=== PATIENT | male | born 1950 | race Caucasian/White ===

== ENCOUNTER 2016-12-06 11:09 | Outpatient (CLI) | payer MEDICARE, OTHER | END 2016-12-06 11:10 | disposition home or self-care (01) | DX: I48.91 Unspecified atrial fibrillation (principal); I34.0 Nonrheumatic mitral (valve) insufficiency; I51.7 Cardiomegaly; I07.1 Rheumatic tricuspid insufficiency ==

== ENCOUNTER 2016-12-10 12:40 | Outpatient (CLI) | payer MEDICARE, OTHER | END 2016-12-10 12:41 | disposition home or self-care (01) | DX: N62 Hypertrophy of breast (principal) ==

== ENCOUNTER 2016-12-25 13:01 | Outpatient (CLI) | payer MEDICARE, OTHER ==
--- NOTE | 2016-12-25 16:12 | Ultrasound Report ---
REVISED: THIS REPORT WAS ORIGINALLY SIGNED ON 12/26/2016 @ 0804 ORDERS LINKED ON 12/31/2016 BILATERAL LOWER EXTREMITY ARTERIAL DUPLEX WITH ABIs: 12/25/2016 CLINICAL INDICATION: Claudication. TECHNIQUE: Real-time sonographic vascular imaging was performed by the trouble tracer through the lower extremities utilizing both color-flow and Doppler spectral analysis. Multiple advertising representative static images were saved for review. RIGHT SIDE SITE PSV WAVEFORM STEN MIGEL -- -- -- MAO -- -- -- CHERI -- -- -- NIGEL -- -- -- EIA -- -- -- MUSSEL FARMER 186 Tri -- PSFA 15 [place] -- MSFA Trickle [place] -- -- DSFA 104 [place] -- PFA 55 Tri -- POP Trickle [place] -- -- ROMINA 10 [place] -- JUTE BAG CUTTING MACHINE OPERATOR 14 [place] -- PER 17 [place] -- DPA 36 [place] -- LEFT SIDE SITE PSV WAVEFORM STEN NIGEL -- -- -- EIA -- -- -- MUSSEL FARMER 292 [place] -- PSFA 80 Bi -- MSFA 75 Bi 00 DSFA [place] Trickle -- -- PFA 15 [place] -- POP 33 [place] -- ROMINA Trickle -- -- JUTE BAG CUTTING MACHINE OPERATOR 23 [place] -- PER Not seen -- -- DPA 25 [place] -- TECHNIQUE: Real-time scanning was performed. SYSTOLIC PRESSURES RIGHT LEFT BRACHIAL ARTERY 128/95 144/93 POSTERIOR TIBIAL ARTERY 101/63 128/48 ANTERIOR TIBIAL ARTERY -- -- PERONEAL ARTERY -- -- ANKLE/ARM INDEX .78 .88 FINDINGS: RIGHT LEG: There is triphasic flow in the right common femoral artery. There is a high grade stenosis of the proximal superficial femoral artery, with likely segmental occlusions in the mid and distal portions. Monophasic flow is seen to the level of the ankle. LEFT LEG: Waveforms are predominantly monophasic, with a likely hemodynamically significant stenosis in the left common femoral artery. The peroneal artery was not visualized. ABIs are abnormal, with the right measuring 0.78 and the left measuring 0.88. IMPRESSION: RIGHT SUPERFICIAL FEMORAL STENOSIS, WITH LIKELY TANDEM OCCLUSIONS DISTALLY. LEFT COMMON FEMORAL STENOSIS. MTDD
== END 2016-12-25 13:02 | disposition home or self-care (01) ==
LOC: DI 13:01
PROVIDERS: ATTEND Internal Medicine
DX: I70.203 Unspecified atherosclerosis of native arteries of extremities, bilateral legs (principal)
CPT/HCPCS: 93922; 93925

== ENCOUNTER 2017-01-21 09:00 | Outpatient (CLI) | payer MEDICARE, OTHER | END 2017-01-21 09:01 | disposition home or self-care (01) | LOC: LAB 09:00 | PROVIDERS: ATTEND Internal Medicine Interventional Cardiology | DX: I73.9 Peripheral vascular disease, unspecified (principal) | CPT/HCPCS: 85610 ==

== ENCOUNTER 2017-01-28 08:56 | Outpatient (CLI) | payer MEDICARE, OTHER | END 2017-01-28 08:57 | disposition home or self-care (01) | LOC: LAB 08:56 | PROVIDERS: ATTEND Internal Medicine Interventional Cardiology | DX: Z79.01 Long term (current) use of anticoagulants (principal) | CPT/HCPCS: 85610 ==

== ENCOUNTER 2017-02-04 08:54 | Outpatient (CLI) | payer MEDICARE, OTHER | END 2017-02-04 08:55 | disposition home or self-care (01) | LOC: LAB 08:54 | PROVIDERS: ATTEND Internal Medicine Interventional Cardiology | DX: Z79.01 Long term (current) use of anticoagulants (principal) | CPT/HCPCS: 85610 ==

== ENCOUNTER 2017-02-19 08:59 | Outpatient (CLI) | payer MEDICARE, OTHER | END 2017-02-19 09:00 | disposition home or self-care (01) | LOC: LAB 08:59 | PROVIDERS: ATTEND Internal Medicine Interventional Cardiology | DX: Z79.01 Long term (current) use of anticoagulants (principal) | CPT/HCPCS: 85610 ==

== ENCOUNTER 2017-02-26 08:55 | Outpatient (CLI) | payer MEDICARE, OTHER | END 2017-02-26 08:56 | disposition home or self-care (01) | LOC: LAB 08:55 | PROVIDERS: ATTEND Internal Medicine Interventional Cardiology | DX: Z79.01 Long term (current) use of anticoagulants (principal) | CPT/HCPCS: 85610 ==

== ENCOUNTER 2017-03-05 08:56 | Outpatient (CLI) | payer MEDICARE, OTHER | END 2017-03-05 08:57 | disposition home or self-care (01) | LOC: LAB 08:56 | PROVIDERS: ATTEND Internal Medicine Interventional Cardiology | DX: Z79.01 Long term (current) use of anticoagulants (principal) | CPT/HCPCS: 85610 ==

== ENCOUNTER 2017-03-19 08:53 | Outpatient (CLI) | payer MEDICARE, OTHER | END 2017-03-19 08:54 | disposition home or self-care (01) | LOC: LAB 08:53 | PROVIDERS: ATTEND Internal Medicine Interventional Cardiology | DX: Z79.01 Long term (current) use of anticoagulants (principal) | CPT/HCPCS: 85610 ==

== ENCOUNTER 2017-03-26 09:05 | Outpatient (CLI) | payer MEDICARE, OTHER | END 2017-03-26 09:06 | disposition home or self-care (01) | LOC: LAB 09:05 | PROVIDERS: ATTEND Internal Medicine Interventional Cardiology | DX: Z79.01 Long term (current) use of anticoagulants (principal) | CPT/HCPCS: 85610 ==

== ENCOUNTER 2017-04-02 08:36 | Outpatient (CLI) | payer MEDICARE, OTHER | END 2017-04-02 08:37 | disposition home or self-care (01) | LOC: LAB 08:36 | PROVIDERS: ATTEND Internal Medicine Interventional Cardiology | DX: Z79.01 Long term (current) use of anticoagulants (principal) | CPT/HCPCS: 85610 ==

== ENCOUNTER 2017-04-09 09:09 | Outpatient (CLI) | payer MEDICARE, OTHER | END 2017-04-09 09:10 | disposition home or self-care (01) | LOC: LAB 09:09 | PROVIDERS: ATTEND Internal Medicine Interventional Cardiology | DX: Z79.01 Long term (current) use of anticoagulants (principal) | CPT/HCPCS: 85610 ==

== ENCOUNTER 2017-04-23 08:57 | Outpatient (CLI) | payer MEDICARE, OTHER | END 2017-04-23 08:58 | disposition home or self-care (01) | LOC: LAB 08:57 | PROVIDERS: ATTEND Internal Medicine Interventional Cardiology | DX: Z79.01 Long term (current) use of anticoagulants (principal) | CPT/HCPCS: 85610 ==

== ENCOUNTER 2017-09-11 08:52 | Outpatient (CLI) | payer MEDICARE, OTHER ==
[2017-09-11 09:58] LABS: CALCIUM 9.3 mg/dL (8.5-10.3); CREATININE 0.6 mg/dL (0.6-1.2)
== END 2017-09-11 08:53 | disposition home or self-care (01) ==
LOC: LAB 08:52
PROVIDERS: ATTEND Internal Medicine Interventional Cardiology
DX: I10 Essential (primary) hypertension (principal)
CPT/HCPCS: 36415; 80048

== ENCOUNTER 2018-02-05 07:15 | Outpatient (CLI) | payer MEDICARE, OTHER ==
[2018-02-05 07:57] LABS: BASOPHILS # (AUTO) 0.1 10^3/uL (0.0-0.1); BASOPHILS % (AUTO) 1.1 %; EOSINOPHILS # (AUTO) 0.3 10^3/uL (0.0-0.7); EOSINOPHILS % (AUTO) 5.1 %; HGB - HEMOGLOBIN 15.1 g/dL (14.0-18.0); LYMPHOCYTES # (AUTO) 1.4 10^3/uL (1.5-3.5); LYMPHOCYTES % (AUTO) 22.8 %; MEAN CORPUSCULAR HGB CONC 33.4 g/dL (32.0-36.0); MEAN CORPUSCULAR VOLUME 95.7 fL (80.0-94.0); MEAN PLATELET VOLUME 9.2 fL (7.4-11.4); MONOCYTES # (AUTO) 0.9 10^3/uL (0.0-1.0); MONOCYTES % (AUTO) 13.6 %; NEUTROPHILS # (AUTO) 3.6 10^3/uL (1.5-6.6); NEUTROPHILS % (AUTO) 57.4 %; PLT - PLATELET COUNT 161 10^3/uL (130-450); RED BLOOD COUNT 4.72 10^6/uL (4.70-6.10); WHITE BLOOD COUNT 6.3 x10^3/uL (4.8-10.8)
[2018-02-05 08:10] LABS: ALBUMIN 4.2 g/dL (3.2-5.5); ALBUMIN/GLOBULIN RATIO 1.2 (1.0-2.2); ALKALINE PHOSPHATASE 52 IU/L (42-121); ALT ALANINE AMINOTRANSFERASE 21 IU/L (10-60); AST ASPARTATE AMINOTRANSFERASE 23 IU/L (10-42); BILIRUBIN,TOTAL 0.7 mg/dL (0.2-1.0); BUN - BLOOD UREA NITROGEN 12 mg/dL (6-20); CARBON DIOXIDE - CO2 30 mmol/L (21-32); CHLORIDE 93 mmol/L (101-111); CHOL/HDL RATIO 2.9 (<5.0); CHOLESTEROL 128 mg/dL; CK- CREATINE KINASE 64 IU/L (22-269); CREATININE 0.7 mg/dL (0.6-1.2); GFR - MDRD 112 (>89); GLUCOSE 107 mg/dL (70-100); HB2 TOTAL 16.5 g/dL; HDL CHOLESTEROL 44 mg/dL; HEMOGLOBIN A1C 0.57 g/dL; HEMOGLOBIN A1C % 5.3 % (4.6-6.2); LDL CHOLESTEROL,CALCULATED 67 mg/dL; LDL/HDL RATIO 1.5 (<3.6); SODIUM 132 mmol/L (135-145); TOTAL PROTEIN 7.6 g/dL (6.7-8.2); VLDL CHOLESTEROL 17 mg/dL
[2018-02-05 08:52] LABS: THYROID STIMULATING HORMONE 4.27 uIU/mL (0.34-5.60)
[2018-02-05 08:54] LABS: FREE T4 (FREE THYROXINE) 0.74 ng/dL (0.58-1.64)
[2018-02-05 09:13] LABS: BILIRUBIN,URINE NEGATIVE (NEGATIVE); GLUCOSE, URINE (UA) NEGATIVE (NEGATIVE); KETONES,URINE (UA) NEGATIVE (NEGATIVE); LEUKOCYTE ESTERASE, URINE NEGATIVE (NEGATIVE); NITRITE,URINE NEGATIVE (NEGATIVE); OCCULT BLOOD,URINE NEGATIVE (NEGATIVE); PH,URINE 6.5 PH (5.0-7.5); PROTEIN,URINE NEGATIVE (NEGATIVE); UROBILINOGEN,URINE 0.2 (NORMAL) E.U./dL (NORMAL)
[2018-02-05 09:15] LABS: CLARITY,URINE CLEAR (CLEAR)
== END 2018-02-05 07:16 | disposition home or self-care (01) ==
LOC: LAB 07:15
PROVIDERS: ATTEND Internal Medicine
DX: Z12.5 Encounter for screening for malignant neoplasm of prostate (principal); Z79.899 Other long term (current) drug therapy; Z13.6 Encounter for screening for cardiovascular disorders; I10 Essential (primary) hypertension; I48.91 Unspecified atrial fibrillation; I77.9 Disorder of arteries and arterioles, unspecified; E78.5 Hyperlipidemia, unspecified; R73.01 Impaired fasting glucose; E02 Subclinical iodine-deficiency hypothyroidism; E53.8 Deficiency of other specified B group vitamins
CPT/HCPCS: 36415; 80053; 80061; 81003; 82550; 82607; 83036; 84439; 84443; 85025; G0103; 81001; 83721; 84153; 87086

== ENCOUNTER 2019-05-19 06:40 | Day surgery (SDC) | payer MEDICARE, OTHER ==
[2019-05-19] MEDS ORDERED: LACTATED RINGERS 1,000 ML IV ONE (06:47)
[2019-05-19] MEDS ORDERED: LIDO GARGLE 30 ML BOTTLE TOP ONE (09:23)
[2019-05-19] MEDS ORDERED: BENZOCAINE/TETRACAINE/BUTAMBEN 20 GM TOP ONE (09:24)
[2019-05-19] MEDS ORDERED: LIDO GARGLE 30 ML BOTTLE ONE (09:27)
[2019-05-19 10:16] VITALS: BP 110/63
== END 2019-05-19 06:41 | disposition home or self-care (01) ==
LOC: SDS 06:40
PROVIDERS: ATTEND Surgery
PROC: 0DB78ZX Excision of Stomach, Pylorus, Via Natural or Artificial Opening Endoscopic, Diagnostic (ICD-10-PCS; 2019-05-19)
PROC: 0DB38ZX Excision of Lower Esophagus, Via Natural or Artificial Opening Endoscopic, Diagnostic (ICD-10-PCS; 2019-05-19)
PROC: 0DB98ZX Excision of Duodenum, Via Natural or Artificial Opening Endoscopic, Diagnostic (ICD-10-PCS; principal; 2019-05-19 08:15)
DX: K22.70 Barrett's esophagus without dysplasia (principal); K26.9 Duodenal ulcer, unspecified as acute or chronic, without hemorrhage or perforation; K25.9 Gastric ulcer, unspecified as acute or chronic, without hemorrhage or perforation; K44.9 Diaphragmatic hernia without obstruction or gangrene; D50.9 Iron deficiency anemia, unspecified; I49.9 Cardiac arrhythmia, unspecified; I10 Essential (primary) hypertension; E78.00 Pure hypercholesterolemia, unspecified; G47.30 Sleep apnea, unspecified; Z87.891 Personal history of nicotine dependence
CPT/HCPCS: 43239; A9270; J7120

== ENCOUNTER 2019-06-17 17:15 | Emergency (ER) | payer MEDICARE, OTHER ==
--- NOTE | 2019-06-17 17:54 | ED Physician Documentation ---
History of Present Illness - Stated complaint Stated Complaint: R LEG PAIN - Chief complaint Chief Complaint: Ext Problem - Additonal information Additional information: This is a 6-year-old male with a history of peripheral arterial disease who presents with leg wounds on the right leg. Patient had these chronically, they started as blisters from edema, and they have continued with slow healing after the edema resolved because of his poor circulation. They have been ongoing for months, however he noticed that they became foul-smelling in the last 3 days. He is not currently on antibiotics. There is some redness around the wounds Review of Systems Constitutional: denies: Fever Skin: reports: Lesions PD PAST MEDICAL HISTORY - Past Medical History Cardiovascular: Hypertension, Atrial fibrillation, Other Respiratory: Sleep apnea, CPAP use Endocrine/Autoimmune: None GI: Colon polyps : None HEENT: None Psych: None Musculoskeletal: None Derm: None - Past Surgical History General: Appendectomy Ortho: Knee replacement, Arthroscopic surgery Cardiovascular: Other HEENT: Tonsil/Adenoidectomy - Present Medications Home Medications: Ambulatory Orders Medication Instructions Recorded Confirmed Chlorthalidone 50 mg PO DAILY 05/18/19 05/18/19 Dabigatran Etexilate Mesylate 150 mg PO BID 05/18/19 05/18/19 [Pradaxa] Lisinopril 20 mg PO DAILY 05/18/19 05/18/19 Simvastatin 40 mg PO DAILY PM 05/18/19 05/18/19 Omeprazole 20 mg PO BID #60 capsule. 05/19/19 Clindamycin HCl [Clindamycin 300MG 300 mg PO Q6H #40 capsule 06/17/19 CAP] Ferrous Gluconate [Iron] 65 mg PO TID 06/17/19 06/17/19 Metoprolol Succinate [Toprol Xl] 100 mg PO BID 06/17/19 06/17/19 - Allergies Allergies/Adverse Reactions: Allergies Allergy/AdvReac Type Severity Reaction Status Date / Time No Known Drug Allergies Allergy Verified 06/17/19 17:41 PD ED PE NORMAL - Vitals Vital signs reviewed: Yes - General General: Alert and oriented X 3 - HEENT HEENT: Atraumatic - Neck Neck: Supple, no meningeal sign - Cardiac Cardiac: Other (Regular rhythm, rate 60 on my exam) - Abdomen Abdomen: Non distended - Derm Derm: Other (Over the right lower leg there are two 2cm diameter wounds with dark crusting over them and surrounding erythema extending several centimeters. These are on the anterior leg. Palpable PT pulse and warm distal extremity. There is no active drainage or fluctuance but the wounds are somewhat foul- smelling. Motor function intact.) - Neuro Neuro: Alert and oriented X 3 Results - Vitals Vitals: Oxygen O2 Source Room air - Labs Labs: Laboratory Tests 06/17/19 06/17/19 06/17/19 18:59 19:39 19:39 WBC 6.4 RBC 4.15 L Hgb 12.7 L Hct 38.7 L MCV 93.3 MCH 30.6 MCHC 32.8 RDW 14.6 Plt Count 169 MPV 11.0 Neut # (Auto) 3.7 Lymph # (Auto) 1.4 L Tripp # (Auto) 0.8 Eos # (Auto) 0.4 Baso # (Auto) 0.1 Absolute Nucleated RBC 0.00 Nucleated RBC % 0.0 PT 15.0 H INR 1.3 H Sodium 139 Potassium 4.0 Chloride 102 Carbon Dioxide 30 Anion Gap 7.0 BUN 29 H Creatinine 0.8 Estimated GFR (MDRD) 96 Glucose 102 H Calcium 8.9 Total Bilirubin 0.5 AST 13 ALT 15 Alkaline Phosphatase 47 Total Protein 6.8 Albumin 4.0 Globulin 2.8 Albumin/Globulin Ratio 1.4 Lipase 43 - Rads (name of study) XR RLE Radiology: Other (No bony abnormalities or unexpected soft tissue findings) PD MEDICAL DECISION MAKING - ED course Complexity details: considered differential (Cellulitis, infected chronic wounds, osteomyelitis) ED course: Pt is well-appearing on exam, his chronic leg wounds do have signs of cellulitis and are somewhat foul-smelling, without drainage or fluctuance, no signs of abscess. XR shows no soft tissue gas or osteomyelitis. Labs show a normal WBC, and he has no fever or signs of systemic toxicity. He appears stable for a trial of outpatient therapy, and was prescribed a course of clindamycin with instructions on close follow up and return precautions with any worsening Departure - Departure Disposition: 01 Home, Self Care Clinical Impression: Skin infection Condition: Stable Instructions: Cellulitis Dc Follow-Up: Renay Chandler MD [Primary Care Provider] - Within 3 Days Prescriptions: Clindamycin HCl [Clindamycin 300MG CAP] 300 mg PO Q6H #40 capsule Comments: You were seen today for some worsening wounds on your lower leg, at this time your labs appear reassuring and I do not see signs of systemic infection or infection extending into the bone. Please take the antibiotic as prescribed, if you are having worsening redness, not improving swelling, fever, or any other concerning symptoms return to the emergency department. You should have a wound recheck within 48 hours to ensure improvement, you can do this with your primary care provider or here. Discharge Date/Time: 06/17/19 21:02
--- NOTE | 2019-06-17 18:57 | XRAY Report ---
Reason: leg infection, assess for osteo Procedure Date: 06/17/2019 Accession Number: [id number] / [id number] Procedure: XR - Tib/Fib RT CPT Code: Final Report FULL RESULT: EXAM: RIGHT TIBIA/FIBULA RADIOGRAPHY EXAM DATE: 06/17/2019 06:34 PM. CLINICAL HISTORY: Leg infection, assess for osteo. COMPARISON: None. TECHNIQUE: 2 views. FINDINGS: Bones: No fracture or focal bony lesion. Joints: No evidence of dislocation. Patient is undergoing knee arthroplasty. Soft Tissues: No unexpected soft tissue findings. IMPRESSION: No evidence of fracture or focal bony lesion. RADIA
[2019-06-17 19:14] LABS: BASOPHILS # (AUTO) 0.1 10^3/uL (0.0-0.1); BASOPHILS % (AUTO) 0.9 %; EOSINOPHILS # (AUTO) 0.4 10^3/uL (0.0-0.7); EOSINOPHILS % (AUTO) 6.1 %; HGB - HEMOGLOBIN 12.7 g/dL (14.0-18.0); LYMPHOCYTES # (AUTO) 1.4 10^3/uL (1.5-3.5); LYMPHOCYTES % (AUTO) 22.4 %; MEAN CORPUSCULAR HEMOGLOBIN 30.6 pg (27.0-31.0); MEAN CORPUSCULAR HGB CONC 32.8 g/dL (32.0-36.0); MEAN CORPUSCULAR VOLUME 93.3 fL (80.0-94.0); MONOCYTES # (AUTO) 0.8 10^3/uL (0.0-1.0); MONOCYTES % (AUTO) 12.1 %; NEUTROPHILS # (AUTO) 3.7 10^3/uL (1.5-6.6); PLT - PLATELET COUNT 169 10^3/uL (130-450); RED BLOOD COUNT 4.15 10^6/uL (4.70-6.10); RED CELL DISTRIBUTION WIDTH 14.6 % (12.0-15.0); WHITE BLOOD COUNT 6.4 x10^3/uL (4.8-10.8)
[2019-06-17 19:52] LABS: INR 1.3 (0.8-1.2)
[2019-06-17 20:01] LABS: ALBUMIN/GLOBULIN RATIO 1.4 (1.0-2.2); BILIRUBIN,TOTAL 0.5 mg/dL (0.2-1.0); CALCIUM 8.9 mg/dL (8.5-10.3); CREATININE 0.8 mg/dL (0.6-1.2); TOTAL PROTEIN 6.8 g/dL (6.7-8.2)
[2019-06-17] MEDS ORDERED: CLINDAMYCIN 150 MG CAPSULE PO STA (20:27)
[2019-06-17 20:52] VITALS: BP 133/79
== END 2019-06-17 21:02 | disposition home or self-care (01) ==
LOC: ED 17:15
DX: S81.801A Unspecified open wound, right lower leg, initial encounter (principal); L08.9 Local infection of the skin and subcutaneous tissue, unspecified; X58.XXXA Exposure to other specified factors, initial encounter; L03.115 Cellulitis of right lower limb; I10 Essential (primary) hypertension; I73.9 Peripheral vascular disease, unspecified; Z96.659 Presence of unspecified artificial knee joint
CPT/HCPCS: 73590; 80053; 83690; 85025; 85610; 99283; 99284; A9270; 86140

== ENCOUNTER 2019-10-27 10:25 | Outpatient (CLI) | payer MEDICARE ==
--- NOTE | 2019-10-27 20:18 | XRAY Report ---
Reason: HIP PAIN,RIGHT Procedure Date: 10/27/2019 Accession Number: [id number] / [id number] Procedure: XR - Hip w/Pelvis 2-3V RT CPT Code: Final Report FULL RESULT: EXAM: RIGHT HIP RADIOGRAPHY EXAM DATE: 10/27/2019 10:36 AM. CLINICAL HISTORY: Right hip pain. COMPARISON: None. TECHNIQUE: 2 views. FINDINGS: Bones: Normal. No fractures or bone lesion. Joints: There is moderate right hip joint space narrowing with subarticular sclerosis and osteophyte formation consistent with moderate osteoarthritis. There is mild left hip joint space narrowing with subarticular sclerosis consistent with mild osteoarthritis. There is severe degenerative change of the lower lumbar spine affecting the endplates and facet joints. There is mild bilateral sacroiliac joint osteoarthritis with joint space narrowing and subarticular sclerosis. Soft Tissues: There is coarse vascular calcification. IMPRESSION: 1. Moderate right and mild left hip osteoarthritis. 2. Mild bilateral sacroiliac joint osteoarthritis. 3. Moderate degenerative change of the lower lumbar spine. RADIA
== END 2019-10-27 10:26 | disposition home or self-care (01) ==
LOC: DI 10:25
PROVIDERS: ATTEND Internal Medicine
DX: M16.0 Bilateral primary osteoarthritis of hip (principal); M47.898 Other spondylosis, sacral and sacrococcygeal region; M47.896 Other spondylosis, lumbar region

== ENCOUNTER 2020-06-21 08:25 | Outpatient (CLI) | payer MEDICARE | END 2020-06-21 08:26 | disposition home or self-care (01) | LOC: COV 08:25 | PROVIDERS: ATTEND Family Medicine | DX: R50.9 Fever, unspecified (principal); R05 Cough; R06.02 Shortness of breath; R53.83 Other fatigue; Z20.828 Contact with and (suspected) exposure to other viral communicable diseases ==

== ENCOUNTER 2020-06-28 10:06 | Outpatient (CLI) | payer MEDICARE ==
--- NOTE | 2020-06-28 11:46 | Ultrasound Report ---
PROCEDURE: Duplex Ext Veins Right INDICATIONS: EDEMA RT LEG TECHNIQUE: Real-time imaging, as well as color and pulse Doppler interrogation, were performed of the lower extr emity deep veins from the inguinal ligament to the popliteal fossa. COMPARISON: None. FINDINGS: The deep veins are normally compressible, and free of intraluminal thrombus. Color and pu lse Doppler demonstrate normal phasic intraluminal flow. There is normal augmentation response to di stal compression maneuver. Severe soft tissue edema noted in the right leg. There is a 6.8 x 4.4 x 2.1 cm right groin frank mass . IMPRESSION: 1. No evidence of deep vein thrombosis involving the right lower extremity. 2. Severe, extensive right lower extremity nonspecific soft tissue edema. 3. 6.8 x 4.4 x 2.1 cm right groin frank mass. Neoplastic process cannot be excluded. Reviewed by: Candelaria Berkowitz MD, PhD on 06/28/2020 11:45 AM PST Approved by: Candelaria Berkowitz MD, PhD on 06/28/2020 11:45 AM PST Station ID: [id number]
== END 2020-06-28 10:07 | disposition home or self-care (01) ==
LOC: DI 10:06
PROVIDERS: ATTEND Internal Medicine
DX: R60.0 Localized edema (principal)

== ENCOUNTER 2020-07-11 08:24 | Outpatient (CLI) | payer MEDICARE ==
--- NOTE | 2020-07-11 13:43 | Ultrasound Report ---
PROCEDURE: Ankle Brachial Index INDICATIONS: PAD, PERSISTENT CELLULITIS TECHNIQUE: Ankle-brachial indices were obtained bilaterally and recorded. COMPARISONS: None. FINDINGS: Right ankle brachial index (EWELINA): 0.39 Left ankle brachial index (EWELINA): 0.65 Healing potential: Ankle pressures >55 mm Hg in non-diabetics and >80 mm Hg in diabetics are likely to achieve primary h ealing of ischemic foot ulcers. Toe pressures >30 mm Hg are likely to achieve primary healing of ischemic foot ulcers, toe or transme tatarsal amputations. IMPRESSION: Moderate left and severe right arterial disease. Reviewed by: Denise Foreman MD on 07/11/2020 12:41 PM [place] Approved by: Denise Foreman MD on 07/11/2020 12:41 PM [facility] Station ID: [id number]
--- NOTE | 2020-07-11 14:56 | Ultrasound Report ---
PROCEDURE: Duplex Lwr Ext Arterial RT INDICATIONS: PAD, PERSISTENT CELLULITIS TECHNIQUE: Color and pulse Doppler interrogation was performed of the right lower extremity arterial system, wit h image documentation. COMPARISON: ABIs from today right EWELINA was 0.39. Left EWELINA was 0.65. Additional comparison is from per ipheral arterial ultrasound performed at [facility] On 12/25/2016 FINDINGS: Common femoral artery: 171 cm/sec, with monophasic, low resistance flow. Deep femoral artery: 71 cm/sec, with monophasic flow. Proximal superficial femoral artery: Chronically occluded Mid superficial femoral artery: Chronically occluded Distal superficial femoral artery: Chronically occluded Popliteal artery: Chronically occluded Right femoral tibial peroneal trunk bypass graft: Proximal anastomosis: 347 cm/s Proximal graft: 89 cm/s Mid bypass graft: 61 cm/s Distal bypass graft: 48 cm/s Distal anastomosis: 77 cm/s Posterior tibial artery: 48 cm/sec, with monophasic flow. Anterior tibial artery/dorsalis pedis: 41 cm/sec, with monophasic flow. Peroneal artery: 29 cm/s, biphasic Brown-scale imaging description: Low resistance common femoral waveforms suggest possible inflow disea se. Severe proximal anastomotic bypass graft stenosis. Chronic occlusion of SFA and popliteal. Three- vessel runoff. IMPRESSION: 1. Low resistance common femoral waveforms suggest possible inflow disease. Consider CTA aorta and ru noff to evaluate inflow, as well as for a more detailed evaluation of the runoff. 2. Chronic SFA and popliteal occlusion. 3. There is a severe origin stenosis of the femoral TP trunk bypass graft, which may be potentially a menable to angioplasty. 4. Three-vessel runoff. Reviewed by: Sherman Navarro MD on 07/11/2020 2:55 PM PST Approved by: Sherman Navarro MD on 07/11/2020 2:55 PM PST Station ID: [id number]
== END 2020-07-11 08:25 | disposition home or self-care (01) ==
LOC: DI 08:24
PROVIDERS: ATTEND Internal Medicine
DX: I73.9 Peripheral vascular disease, unspecified (principal); I77.1 Stricture of artery; L03.90 Cellulitis, unspecified
CPT/HCPCS: 93922

== ENCOUNTER 2021-02-06 12:00 | Inpatient (IN) | payer MEDICARE ==
--- NOTE | 2021-02-06 12:54 | ED Physician Documentation ---
History of Present Illness - Stated complaint Stated Complaint: HOT PX IN RT LEG - Chief complaint Chief Complaint: Ext Problem - Additonal information Additional information: 70-year-old male presents the emergency department for evaluation of acute right lower anterior leg swelling and erythema. This began last night. 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 He is currently undergoing a course of chemotherapy. His last session was 1 week ago and it is scheduled again in approximately 3 weeks. Once that course of chemotherapy is completed he will undergo radiation Patient did have a history of persistent swelling in this right leg which was initially thought to be secondary to arterial insufficiency. He had a fem/pop bypass in August 2019. However thereafter the lymphoma in the groin was identified and he has been started on the course of chemotherapy which would presumptively be curative. Shortly after he began chemotherapy his reports that the swelling in the leg markedly improved until she noted this swelling and erythema this last night. He has had no cough or fevers. No chest pain or shortness of air. Does have a history of atrial fibrillation anticoagulated on Pradaxa. Rate control with metoprolol. labs from January [address] [facility] reviewed: wbc 4.3. hgb 12.4 HCT 37.2 Vascular surgeon: Dr. Rosales ([facility]) Oncologist: Johann ([facility]) [phone] Review of Systems Constitutional: denies: Fever, Chills Eyes: reports: Reviewed and negative Ears: reports: Reviewed and negative Nose: reports: Reviewed and negative Throat: reports: Reviewed and negative Cardiac: reports: Reviewed and negative Respiratory: reports: Reviewed and negative GI: denies: Abdominal Pain Musculoskeletal: reports: Extremity pain (right leg). denies: Neck pain, Back pain Neurologic: reports: Reviewed and negative PD PAST MEDICAL HISTORY - Past Medical History Cardiovascular: Hypertension, Atrial fibrillation, Other Respiratory: Sleep apnea, CPAP use Endocrine/Autoimmune: None GI: Colon polyps : None HEENT: None Psych: None Musculoskeletal: None Derm: None - Past Surgical History Past Surgical History: Yes General: Appendectomy Ortho: Knee replacement, Arthroscopic surgery Cardiovascular: Other HEENT: Tonsil/Adenoidectomy - Present Medications Home Medications: Ambulatory Orders Medication Instructions Recorded Confirmed Chlorthalidone 50 mg PO DAILY 05/18/19 01/27/20 Dabigatran Etexilate Mesylate 150 mg PO BID 10/01/19 06/11/20 [Pradaxa] Simvastatin 40 mg PO DAILY PM 05/18/19 01/27/20 lisinopriL [Lisinopril] 20 mg PO DAILY 05/18/19 01/27/20 Ferrous Gluconate [Iron] 65 mg PO TID 06/17/19 01/27/20 Metoprolol Succinate [Toprol Xl] 100 mg PO BID 06/17/19 01/27/20 Aspirin 1 tab PO DAILY 07/09/19 01/27/20 Cyanocobalamin (Vitamin B-12) 1 cap PO DAILY 07/09/19 01/27/20 [Vitamin B-12] Multivitamin [Multivitamins] 1 cap PO DAILY 07/09/19 01/27/20 Ciprofloxacin HCl [Cipro] 500 mg PO DAILY 01/27/20 01/27/20 - Allergies Allergies/Adverse Reactions: Allergies Allergy/AdvReac Type Severity Reaction Status Date / Time No Known Drug Allergies Allergy Verified 02/06/21 12:09 - Social History Does the pt smoke?: No Smoking Status: Former smoker Does the pt drink ETOH?: Yes Does the pt have substance abuse?: No - Immunizations Immunizations: TDAP >10years/unknown, Other immun not current PD ED PE EXPANDED - General General: Alert, No acute distress, Other (obese) - Cardiac Cardiac: Irregularly irregular, Murmur Present, Radial strong equal, Other (1+ DP pulses bilaterally. no swelling of feet. warm feet with brisk cap refill). No: Pedal strong equal - Respiratory Respiratory: Clear to ausultation gianluca. No: Distress, Labored - Abdomen Abdomen: Normal Bowel sounds. No: Tender to palpation - Extremities Extremities: Right hip (parge 4X5 cm lymphnodes right groin; 2+ femoral pulse. patchy erythema of right groin. no sores or lesions), Right leg (swelling erythema right lower anterior leg with mild posterior calf pain tenderness) - Neuro Neuro: Alert and Oriented X 3, CNII-XII intact - GCS Eye Opening: Spontaneous Motor: Obeys Commands Verbal: Oriented Total: 15 Results - Vitals Vitals: Vital Signs - 24 hr 02/06/21 12:04 Temperature 37.6 C Heart Rate 114 H Respiratory 18 Rate Blood Pressure 119/59 L O2 Saturation 100 Oxygen O2 Source Room air - EKG (time done) 1255 Rate: Rate (enter#) (96) Rhythm: Atrial fibrillation Gates: LAD Intervals: LBBB Ischemia: Non specific changes Compare to prior EKG: Old EKG unavailable, Other (records from [facility] reviewed and an EKG in November of 2020 showed a-fib with LBBB) Computer interpretation: Agree with computer - Labs Labs: Laboratory Tests 02/06/21 02/06/21 02/06/21 13:13 13:13 13:13 WBC 17.3 H RBC 4.30 L Hgb 13.1 L Hct 38.0 L MCV 88.4 MCH 30.5 MCHC 34.5 RDW 14.2 Plt Count 123 L MPV 10.7 Neut # (Auto) 16.3 H Lymph # (Auto) 0.0 L Mccreary # (Auto) 0.6 Eos # (Auto) 0.1 Baso # (Auto) 0.0 Absolute Nucleated RBC 0.00 Nucleated RBC % 0.0 Sodium 130 L Potassium 3.4 L Chloride 95 L Carbon Dioxide 25 Anion Gap 10.0 BUN 38 H Creatinine 1.1 Estimated GFR (MDRD) 66 L Glucose 122 H Lactic Acid 1.8 Calcium 8.3 L Total Bilirubin 0.9 AST 14 ALT 16 Alkaline Phosphatase 37 L Total Protein 6.7 Albumin 3.6 Globulin 3.1 Albumin/Globulin Ratio 1.2 - Rads (name of study) US DVT right leg Radiology: EMP read indepedently (No acute focal pulmonary opacities.), Other (Limited ultrasound DVT studyreveals no deep vein thrombosis.) CXR Radiology: EMP read indepedently PD MEDICAL DECISION MAKING - ED course Complexity details: reviewed results, re-evaluated patient, d/w patient, d/w family, d/w device sales consultant (Eliel) ED course: 70-year-old male who has a history of atrial fibrillation anticoagulated on Pradaxa rate control with metoprolol presents to the emergency department for evaluation of acute right lower leg swelling and erythema. He is unfortunately undergoing active chemotherapy for lymphoma in his right groin. Last chemotherapy approximately 1 week ago. Today screening labs do show marked leukocytosis. This is in contrast to a relatively unremarkable CBC completed on the 16 of this month. His lactate is not elevated. Screening electrolytes do show a likely mild dehydration with an elevated BUN. We did do a limited ultrasound DVT of the right lower leg and per the cardiology technologist no blood clot is seen. Chest x-ray does not reveal any obvious focal opacity. I did discuss this case with the patient's treating oncologist Dr. Julian who would agree and recommend to inpatient hospitalization for treatment of the cellulitis. This gentleman does not present in shock But appropriate 30 mils per kilo of isotonic crystalloid was ordered.Ceftriaxone and Vancomycin ordered. I have discussed this case with admitting hospitalist Dr. Gr who agrees to inpatient hospitalization. Pt and his updated to plan of care. - Sepsis Event Sepsis Onset Date: 02/06/21 Sepsis Onset Time: 13:45 Current Stage of Sepsis: Sepsis Initial Hypotension: Not hypotensive Possible source of Sepsis: Skin/soft tissue Mental/Cognitive Status: Alert/Oriented X3, Normal for patient Reason for not giving 30ml/kg crystalloid fluids: Not in septic shock Capillary refill: Less than 2 seconds Peripheral Pulse Strength: 1+ Faint Peripheral Pulse Location: Pedal (History of femoropopliteal bypass and right leg. 1+ pedal pulse) Bedside ultrasound performed: No Departure - Departure Disposition: 66 [facility] DC/Xfer Clinical Impression: Cellulitis of right leg without foot, History of atrial fibrillation, Anticoagulated Lymphoma Qualifiers: Lymphoma type: unspecified type Lymphoma site: inguinal Qualified Code(s): C85.95 - Non-Hodgkin lymphoma, unspecified, lymph nodes of inguinal region and lower limb Sepsis Qualifiers: Sepsis type: sepsis due to unspecified organism Sepsis acute organ dysfunction status: without acute organ dysfunction Qualified Code(s): A41.9 - Sepsis, unspecified organism
--- NOTE | 2021-02-06 13:01 | XRAY Report ---
PROCEDURE: Chest 1 View X-Ray INDICATIONS: Chest Pain TECHNIQUE: One view of the chest was acquired. COMPARISON: None FINDINGS: Surgical changes and devices: Left Port-A-Cath is present distal tip projecting over the mid SVC. Lungs and pleura: No pleural effusions or pneumothorax. Lungs are clear. Mediastinum: Mediastinal contours appear normal. Heart size is mildly prominent. Bones and chest wall: No suspicious bony lesions. Overlying soft tissues appear unremarkable. IMPRESSION: No acute pulmonary process. Reviewed by: Denise Foreman MD on 02/06/2021 1:00 PM PDT Approved by: Denise Foreman MD on 02/06/2021 1:00 PM PDT Station ID: [id number]
[2021-02-06 13:24] LABS: BASOPHILS % (AUTO) 0.2 %; EOSINOPHILS # (AUTO) 0.1 10^3/uL (0.0-0.7); EOSINOPHILS % (AUTO) 0.7 %; HGB - HEMOGLOBIN 13.1 g/dL (14.0-18.0); LYMPHOCYTES % (AUTO) 0.2 %; MEAN CORPUSCULAR HEMOGLOBIN 30.5 pg (27.0-31.0); MEAN CORPUSCULAR HGB CONC 34.5 g/dL (32.0-36.0); MEAN CORPUSCULAR VOLUME 88.4 fL (80.0-94.0); MEAN PLATELET VOLUME 10.7 fL (7.4-11.4); MONOCYTES # (AUTO) 0.6 10^3/uL (0.0-1.0); MONOCYTES % (AUTO) 3.2 %; NEUTROPHILS # (AUTO) 16.3 10^3/uL (1.5-6.6); NEUTROPHILS % (AUTO) 94.8 %; PLT - PLATELET COUNT 123 10^3/uL (130-450); RED CELL DISTRIBUTION WIDTH 14.2 % (12.0-15.0); WHITE BLOOD COUNT 17.3 x10^3/uL (4.8-10.8)
[2021-02-06 13:36] LABS: ALBUMIN 3.6 g/dL (3.2-5.5); ALBUMIN/GLOBULIN RATIO 1.2 (1.0-2.2); BILIRUBIN,TOTAL 0.9 mg/dL (0.2-1.0); CALCIUM 8.3 mg/dL (8.5-10.3); CREATININE 1.1 mg/dL (0.6-1.2); POTASSIUM 3.4 mmol/L (3.5-5.0); TOTAL PROTEIN 6.7 g/dL (6.7-8.2)
[2021-02-06] MEDS ORDERED: cefTRIAXone 1 GM in SODIUM CHLORIDE 0.9% MINIBAG 100 ML IV STA (13:54)
--- NOTE | 2021-02-06 14:08 | Ultrasound Report ---
PROCEDURE: Duplex Ext Veins Right INDICATIONS: erythema; eval for dvt TECHNIQUE: Real-time imaging, as well as color and pulse Doppler interrogation, were performed of the lower extr emity deep veins from the inguinal ligament to the popliteal fossa. COMPARISON: 06/28/2020. FINDINGS: The deep veins are normally compressible, and free of intraluminal thrombus. Color and pu lse Doppler demonstrate normal phasic intraluminal flow. There is normal augmentation response to di stal compression maneuver. There is a 4.2 x 2.5 cm right groin lymph node which is not significant changed compared to prior samantha dy where visualized. IMPRESSION: 1. No evidence of deep vein thrombosis involving the right lower extremity. 2. Right groin lymphadenopathy. Neoplastic process is not excluded by this study. Reviewed by: Candelaria Berkowitz MD, PhD on 02/06/2021 2:07 PM PDT Approved by: Candelaria Berkowitz MD, PhD on 02/06/2021 2:07 PM PDT Station ID: [id number]
[2021-02-06] MEDS ORDERED: SODIUM CHLORIDE 0.9% 3,265.86 ML IV STA (14:16)
[2021-02-06] MEDS ORDERED: VANCOMYCIN INJ 1.75 GM in SODIUM CHLORIDE 0.9% 500 ML IV STA (14:20)
[2021-02-06] MEDS ORDERED: VANCOMYCIN INJ 2 GM, VANCOMYCIN INJ 500 MG in SODIUM CHLORIDE 0.9% 500 ML IV STA (14:27)
[2021-02-06] MEDS ORDERED: oxyCODONE 5 MG TABLET PO PRN (14:46)
[2021-02-06] MEDS ORDERED: ACETAMINOPHEN 325 MG TABLET PO PRN ×2 (14:46→21:25)
[2021-02-06] MEDS ORDERED: ONDANSETRON 4 MG/2 ML VIAL IVP PRN (14:46)
[2021-02-06] MEDS ORDERED: METOPROLOL SUCCINATE 50 MG TABLET PO SCH (14:53)
[2021-02-06] MEDS ORDERED: METOPROLOL 5 MG/5 ML VIAL IVP PRN (14:53)
[2021-02-06] MEDS ORDERED: ceFAZolin 1 GM in SODIUM CHLORIDE 0.9% MINIBAG 100 ML IV SCH (15:00)
[2021-02-06] MEDS ORDERED: SODIUM CHLORIDE 0.9% 1,000 ML IV SCH (15:00)
--- NOTE | 2021-02-06 15:02 | HISTORY & PHYSICAL EXAMINATION ---
Chief Complaint - Chief Complaint Chief Complaint: Right lower extremity erythema and swollen History of Present Illness - Admitted From Admitted From:: ER - History Obtained From Records Reviewed: [facility] History obtained from: pt Exam Limitations: no - History of Present Illness HPI Comment/Other: This is a 70-years old male with a past medical history significant for recently diagnosis of lymphoma on chemo therapy, Hypertension, atrial fibrillation on Pradaxa, sleep apnea on CPAP, peripheral arterial disease of arterial insufficiency with wounds on the right leg but slow healed, Who presented ER complaint right lower extremity erythema and swollen. pt report This started last night. He denies pain, report slight elevated temperature but he denies fever or chill. pt has recently diagnosis of lymphoma in his right groins area. He is currently undergoing the first course of chemotherapy which was 1 week ago and it is scheduled again in approximately 3 weeks. Pt report once that course of chemotherapy is completed then he will undergo radiation. Ultrasound of right lower extremity show no DVT. Routine laboratory tests that show WBC is 17, lactic acid of 1.8. In the ER, patient is afebrile, heart rate is 114, Normal range blood pressure, 100% sats on low air. ER provider call patient's oncologist, oncologist recommended patient was admitted to inpatient to treat cellulitis. Given above medical condition, medical team was consulted for admission. Discussed the care goal with the patient, patient hope to have full code History - Past Medical History Cardiovascular: reports: Hypertension, Atrial fibrillation, Other Respiratory: reports: Sleep apnea, CPAP use Endocrine/Autoimmune: reports: None GI: reports: Colon polyps : reports: None HEENT: reports: None Psych: reports: None Musculoskeletal: reports: None Derm: reports: None MRSA Hx?: No - Past Surgical History General: reports: Appendectomy Ortho: reports: Knee replacement, Arthroscopic surgery Cardiovascular: reports: Other HEENT: reports: Tonsil/Adenoidectomy - Family & Social History Family History: Mother: , Father: Family History Comment/Other: Patient report her father is heavy cigarette smoker, he from the lung cancer at age 69. Her mother has history dementia, at age 89 from surgical complication Social History Notes: Patient report he stopped cigarette smoking at 1999, he stopped alcohol 2 years ago. - POLST Patient has POLST: No Meds/Allgy - Home Medications Home Medications: Ambulatory Orders Medication Instructions Recorded Confirmed Chlorthalidone 50 mg PO DAILY 05/18/19 02/06/21 Dabigatran Etexilate Mesylate 150 mg PO DAILY 05/18/19 02/06/21 [Pradaxa] Simvastatin 40 mg PO DAILY PM 05/18/19 02/06/21 lisinopriL [Lisinopril] 20 mg PO DAILY 05/18/19 02/06/21 Ferrous Gluconate [Iron] 65 mg PO DAILY 06/17/19 02/06/21 Metoprolol Succinate [Toprol Xl] 100 mg PO DAILY 06/17/19 02/06/21 Aspirin 81 mg PO DAILY 07/09/19 02/06/21 Multivitamin [Multivitamins] 1 cap PO DAILY 07/09/19 02/06/21 Cholecalciferol (Vitamin D3) 25 mcg PO DAILY 02/06/21 02/06/21 [Vitamin D3] Cyanocobalamin (Vitamin B-12) 1,000 mcg PO DAILY 02/06/21 02/06/21 [Vitamin B-12] - Allergies Allergies/Adverse Reactions: Allergies Allergy/AdvReac Type Severity Reaction Status Date / Time No Known Drug Allergies Allergy Verified 02/06/21 12:09 Review of Systems - Constitutional Constitutional: denies: Fatigue, Fever, Chills, Weakness, Poor appetite, Diaphoresis - Eyes Eyes: denies: Pain, Dipolpia - Ears, Nose & Throat Ears, Nose & Throat: denies: Ear pain, Nosebleeds, Bleeding gums - Cardiovascular Cariovascular: denies: Irregular heart rate, Palpitations, Chest pain, Lightheadedness, Syncope, Exertional dyspnea - Respiratory Respiratory: denies: Cough, Sputum production, SOB at rest, SOB with exertion - Gastrointestinal Gastrointestinal: denies: Abdominal pain, Constipation, Diarrhea, Rectal bleeding, Nausea, Vomiting - Genitourinary Genitourinary: denies: Dysuria, Urgency, Incontinence - Musculoskeletal Musculoskeletal: denies: Muscle pain, Muscle aches, Limited range of motion - Integumentary Integumentary: reports: Rash. denies: Lesions - Neurological Neurological: denies: General weakness, Focal weakness, Headache, Dizziness, Numbness, Pre-existing deficit, Abnormal gait, Seizures, Incoordination, Slurred speech - Psychiatric Psychiatric: denies: Depression, Anxiety - Endocrine Endocrine: denies: Polyuria - Hematologic/Lymphatic Hematologic/Lymphatic: reports: Recurrent infections. denies: Anemia Prior Level of Functionality: Patient is independently in the home Exam - Vital Signs Vital Signs: Vital Signs x48h Temp Pulse Resp BP Pulse Ox 02/06/21 14:42 95 16 113/70 96 02/06/21 14:37 100 14 113/70 95 02/06/21 12:04 37.6 C 114 H 18 119/59 L 100 - Physical Exam General Appearance: positive: No acute distress, Alert. negative: Lethargic Eyes Bilateral: positive: Normal inspection, PERRL, No lid inflammation ENT: positive: ENT inspection nml, No signs of dehydration. negative: Purulent nasal drainage Neck: positive: Nml inspection, Trachea midline. negative: Thyromegaly, Tracheal deviation Respiratory: positive: Chest non-tender, No respiratory distress, Breath sounds nml. negative: Wheezes, Rales Cardiovascular: positive: Regular rate & rhythm, No murmur, Tachycardia. negative: Bradycardia, Systolic murmur, Diastolic murmur Peripheral Pulses: positive: 2+ Abdomen: positive: Non-tender, Nml bowel sounds. negative: Tenderness, Guarding Back: positive: Nml inspection Skin: positive: Color nml, Warm, Dry. negative: Cyanosis, Diaphoresis Extremities: positive: Non-tender, Full ROM, No pedal edema, Other (Erythema with mild swelling and warmth in the right lower extremity.). negative: Calf tenderness Neurologic/Psychiatric: positive: Oriented x3, Motor nml, Sensation nml. negative: Weakness, Sensory loss, Facial droop, Slurred/abnml speech, Depressed mood/affect Sepsis Event Note (H) - Evaluation Possible source of Sepsis: positive: Skin/soft tissue Conclusion/Plan - Problem List (1) Cellulitis of right leg without foot Conclusion/Plan: Patient has a history of the right lower extremity wound, But it was healed. Patient also has history of PAD And bypass surgery. Now patient's right lower extremity show erythema, swelling, and warmth. WBC is 17, but the patient has no fever. Blood culture was done in the ER. According to patient previous wound culture at the same location, Right lower extremity, Which show enterococcal infection. We will choose Unasyn for patient. Patient's skin is intact, We will follow up blood culture as well. Gently intravenous IV fluids for pt. (2) Atrial fibrillation with rapid ventricular response Conclusion/Plan: Patient has a history atrial fibrillation, patient had heart rate 114, We will resume patient home medication metoprolol, we will add the intravenous metoprolol as needed, Continue certified master safecracker, continue vital signs monitor, We will resume patient Pradaxa, his home medication (3) Lymphoma Conclusion/Plan: Patient was recently diagnosis of lymphoma, patient already had 1 time chemo treatment, patient will continue to have chemo treatment then will have radiation treatment, Advised patient continue follow-up his oncologist. Qualifiers: Lymphoma type: unspecified type Lymphoma site: inguinal Qualified Cod e(s): C85.95 - Non-Hodgkin lymphoma, unspecified, lymph nodes of inguinal region and lower limb (4) HTN (hypertension) Conclusion/Plan: Patient has a history hypertension, patient takes lisinopril and metoprolol in the home, we will resume metoprolol now, Continue vital signs monitor (5) PAD (peripheral artery disease) Conclusion/Plan: Patient has a history of PAD, patient follow-up with his vascular surgeon - Lab Results Fish Bones: 02/06/21 13:13 02/06/21 13:13 Core Measures - Anticipated LOS I expect patient to be DC'd or transferred within 96 hours.: Yes - DVT/VTE - Prophylaxis VTE/DVT Device ordered at admit?: Yes VTE/DVT Prophylaxis med ordered at admit?: Yes
[2021-02-06 15:47] LABS: B. PARAPERTUSSIS- RESP PCR PAN NOT DETECTED; B. PERTUSSIS- RESP PCR PANEL NOT DETECTED; C. PNEUMONIAE- RESP PCR PANEL NOT DETECTED; CORONAVIRUS 229E-RESP PCR NOT DETECTED; CORONAVIRUS HKU1-RESP PCR NOT DETECTED; CORONAVIRUS NL63-RESP PCR NOT DETECTED; CORONAVIRUS OC43-RESP PCR NOT DETECTED; HUMAN METAPNEUMOVIRUS NOT DETECTED; INFLUENZA A- RESP PCR PANEL NOT DETECTED; INFLUENZA B - RESP PCR PANEL NOT DETECTED; M. PNEUMONIAE- RESP PCR PANEL NOT DETECTED; PARAINFLUENZA VIRUS 1 NOT DETECTED; PARAINFLUENZA VIRUS 2 NOT DETECTED; PARAINFLUENZA VIRUS 3 NOT DETECTED; PARAINFLUENZA VIRUS 4 NOT DETECTED; RHINOVIRUS/ENTEROVIRUS NOT DETECTED; RSV- RESP PCR PANEL NOT DETECTED; SARS-CoV-2 -RESP PCR PANEL NOT DETECTED
--- NOTE | 2021-02-06 17:07 | PHARMACY PROGRESS NOTE ---
- Best Possible Medication History Admit Date and Time: 02/06/21 1446 Processed by: Pharmacy Medication History completed: Yes Patient Interview: Completed Secondary Source(s): Written medication list (PATIENT PROVIDED MEDICATION LIST ) As the person ultimately responsible for medication therapy, providers are able to order a medication from an existing home medication list in [facility] via the "Reconcile Routine" prior to Confirmation of that medication by windows support engineer. Such practice is discouraged except when the physician, in their clinical judgment, deems that a medical need exists for a medication without regard to previous use.
[2021-02-06] MEDS ORDERED: POTASSIUM CHLORIDE 20 MEQ TABLET PO ONE (17:10)
[2021-02-06] MEDS: SODIUM CHLORIDE FLUSH 0.9% 10 ML SYRINGE IVP SCH (17:45)
[2021-02-06] MEDS: SODIUM CHLORIDE 0.9% 1,000 ML IV SCH (17:45)
[2021-02-06] MEDS ORDERED: AMPICILLIN/SULBACTAM 3 GM in SODIUM CHLORIDE 0.9% MINIBAG 100 ML IV SCH (18:00)
[2021-02-06 19:12] LABS: BILIRUBIN,URINE NEGATIVE (NEGATIVE); CLARITY,URINE CLEAR (CLEAR); GLUCOSE, URINE (UA) NEGATIVE (NEGATIVE); KETONES,URINE (UA) NEGATIVE (NEGATIVE); LEUKOCYTE ESTERASE, URINE NEGATIVE (NEGATIVE); NITRITE,URINE NEGATIVE (NEGATIVE); OCCULT BLOOD,URINE NEGATIVE (NEGATIVE); PH,URINE 6.5 PH (5.0-7.5); PROTEIN,URINE 30 mg/dL (NEGATIVE); UROBILINOGEN,URINE 0.2 (NORMAL) E.U./dL (NORMAL)
[2021-02-06 19:22] LABS: RBC,URINE 0-5 /HPF (0-5); WBC,URINE 0-3 /HPF (0-3)
[2021-02-06 19:23] LABS: BACTERIA,URINE None Seen /HPF (None Seen); SQUAMOUS EPITHELIAL CELL,UR RARE Squamous (<= Few)
[2021-02-06] MEDS ORDERED: SODIUM CHLORIDE FLUSH 0.9% 10 ML SYRINGE IVP PRN (20:27)
[2021-02-06] MEDS: AMPICILLIN/SULBACTAM 3 GM in SODIUM CHLORIDE 0.9% MINIBAG 100 ML IV SCH (23:59)
[2021-02-07] MEDS: AMPICILLIN/SULBACTAM 3 GM in SODIUM CHLORIDE 0.9% MINIBAG 100 ML IV SCH ×3 (05:30→17:24)
[2021-02-07] MEDS: SODIUM CHLORIDE 0.9% 1,000 ML IV SCH ×2 (05:31→11:33)
[2021-02-07 05:46] LABS: BASOPHILS % (AUTO) 0.2 %; EOSINOPHILS % (AUTO) 0.1 %; HGB - HEMOGLOBIN 11.4 g/dL (14.0-18.0); LYMPHOCYTES # (AUTO) 0.1 10^3/uL (1.5-3.5); LYMPHOCYTES % (AUTO) 0.5 %; MEAN CORPUSCULAR HGB CONC 33.5 g/dL (32.0-36.0); MEAN CORPUSCULAR VOLUME 89.5 fL (80.0-94.0); MEAN PLATELET VOLUME 10.6 fL (7.4-11.4); MONOCYTES # (AUTO) 0.4 10^3/uL (0.0-1.0); MONOCYTES % (AUTO) 4.6 %; NEUTROPHILS # (AUTO) 8.8 10^3/uL (1.5-6.6); NEUTROPHILS % (AUTO) 93.2 %; PLT - PLATELET COUNT 78 10^3/uL (130-450); RED CELL DISTRIBUTION WIDTH 14.2 % (12.0-15.0); WHITE BLOOD COUNT 9.5 x10^3/uL (4.8-10.8)
[2021-02-07 05:54] LABS: CALCIUM 7.7 mg/dL (8.5-10.3); CREATININE 0.8 mg/dL (0.6-1.2)
[2021-02-07] MEDS: METOPROLOL SUCCINATE 50 MG TABLET PO SCH (08:04)
[2021-02-07] MEDS: SODIUM CHLORIDE FLUSH 0.9% 10 ML SYRINGE IVP SCH ×3 (08:04→16:30)
[2021-02-07] MEDS: DABIGATRAN 75 MG CAPSULE PO SCH (08:04)
[2021-02-07] MEDS ORDERED: POTASSIUM CHLORIDE 20 MEQ TABLET PO ONE (12:00)
--- NOTE | 2021-02-07 14:57 | PROVIDER PROGRESS NOTE ---
Assessment/Plan - Problem List (1) Cellulitis of right leg without foot Assessment/Plan: 02/07 Patient had fever at home last night at the high 39 degree. But the patient WBC is down to the normal range, clinically patient erythema area is significantly reduced. Blood culture is still pending. We will continue Unasyn, add probiotics for patient. But pt has recently diagnosis of Lymphoma which can also cause pt's fever. Patient has a history of the right lower extremity wound, But it was healed. Patient also has history of PAD And bypass surgery. Now patient's right lower extremity show erythema, swelling, and warmth. WBC is 17, but the patient has no fever. Blood culture was done in the ER. According to patient previous wound culture at the same location, Right lower extremity, Which show enterococcal infection. We will choose Unasyn for patient. Patient's skin is intact, We will follow up blood culture as well. Gently intravenous IV fluids for pt. (2) Atrial fibrillation with rapid ventricular response Conclusion/Plan: 02/07 resolved. HR is stable, Continue home metoprolol, continue home Pradaxa, Continue pvc monitor Patient has a history atrial fibrillation, patient had heart rate 114, We will resume patient home medication metoprolol, we will add the intravenous metoprolol as needed, Continue pvc monitor, continue vital signs monitor, We will resume patient Pradaxa, his home medication (3) Lymphoma Conclusion/Plan: Patient was recently diagnosis of lymphoma, patient already had 1 time chemo treatment, patient will continue to have chemo treatment then will have radiation treatment, Advised patient continue follow-up his oncologist. (4) HTN (hypertension) Conclusion/Plan: Patient has a history hypertension, patient takes lisinopril and metoprolol in the home, we will resume metoprolol now, Continue vital signs monitor (5) PAD (peripheral artery disease) Conclusion/Plan: Patient has a history of PAD, patient follow-up with his vascular surgeon (3) Lymphoma Qualifiers: Lymphoma type: unspecified type Lymphoma site: inguinal Qualified Code(s): C85.95 - Non-Hodgkin lymphoma, unspecified, lymph nodes of inguinal region and lower limb - Current Meds Current Meds: Current Medications Generic Name Dose Route Start Last Admin Trade Name Freq PRN Reason Stop Dose Admin Dabigatran 150 mg 02/07/21 09:00 02/07/21 08:04 Dabigatran 75 Mg Capsule PO 150 mg DAILY MIMA Administration Ampicillin Sodium/Sulbactam 100 mls @ 200 mls/hr 02/07/21 00:00 02/07/21 12:13 Sodium 3 gm/ Sodium Chloride IV Infused Q6H MIMA Infusion Sodium Chloride 1,000 mls @ 100 mls/hr 02/07/21 11:00 02/07/21 11:33 Normal Saline 0.9% IV 02/08/21 06:59 100 mls/hr .Q10H MIMA Administration Metoprolol Succinate 100 mg 02/07/21 09:00 02/07/21 08:04 Metoprolol Succinate 50 Mg Tablet PO 100 mg DAILY MIMA Administration Metoprolol Tartrate 5 mg 02/06/21 14:53 02/06/21 20:45 Metoprolol 5 Mg/5 Ml Vial IVP 5 mg Q6H PRN Administration Tachycardia Sodium Chloride 10 ml 02/06/21 17:00 02/07/21 08:04 Sodium Chloride Flush 0.9% 10 Ml Syringe IVP 10 ml 0100,0900,1700 MIMA Administration - Lab Result Fish Bone Diagrams: 02/07/21 05:16 02/07/21 05:16 - Additional Planning My Orders: My Active Orders 02/06/21 14:46 Activity Orders [RC] Q2HR IO [RC] IOSHIFT Initiate Bowel Care Protocol [RC] .protocol Initiate Line Care Protocol [RC] QSHIFT Initiate Personal Care Protoco [RC] .protocol Telemetry- [RC] Q4HR Vital Signs [RC] Q4HR Ondansetron Inj [Zofran Inj] 4 mg IVP Q6HR PRN Sodium Chloride Flush 0.9% [Normal Saline Flush 0.9%] 10 ml IVP PRN PRN oxyCODONE [Roxicodone] 5 mg PO Q4HR PRN Code Status [OTHERS] Routine Condition of Patient [OTHERS] Routine DVT Prophylaxis [OTHERS] Routine 02/06/21 14:49 SCDs [RC] QSHIFT 02/06/21 14:53 Metoprolol Inj [Lopressor Inj] 5 mg IVP Q6H PRN 02/06/21 14:57 Home CPAP/BiPAP [RC] .ONCE 02/06/21 Dinner Regular Diet [DIET] 02/06/21 17:00 Sodium Chloride Flush 0.9% [Normal Saline Flush 0.9%] 10 ml IVP 0100,0900,1700 02/06/21 20:27 Sodium Chloride Flush 0.9% [Normal Saline Flush 0.9%] 20 ml IVP PRN PRN 02/07/21 C DIFF PCR Urgent 02/07/21 00:00 Ampicillin/Sulbactam [Unasyn] 3 gm Sodium Chloride 0.9% Minibag [Normal Saline 0.9% Minibag] 100 ml IV Q6H 02/07/21 09:00 Dabigatran [Pradaxa] 150 mg PO DAILY Metoprolol Succinate [Toprol Xl] 100 mg PO DAILY 02/07/21 11:00 Sodium Chloride 0.9% [Normal Saline 0.9%] 1,000 ml IV 100 mls/hr 02/07/21 17:00 Saccharomyces Boulardii [Florastor] 500 mg PO BIDWM 02/08/21 05:00 BMP - BASIC METABOLIC PANEL [CHEM] DAILYLAB CBC - COMP BLD CT W/AUTO DIFF [HEME] DAILYLAB CRP - C-REACTIVE PROTEIN [CHEM] DAILYLAB 02/09/21 05:00 BMP - BASIC METABOLIC PANEL [CHEM] DAILYLAB CBC - COMP BLD CT W/AUTO DIFF [HEME] DAILYLAB CRP - C-REACTIVE PROTEIN [CHEM] DAILYLAB 02/10/21 05:00 BMP - BASIC METABOLIC PANEL [CHEM] DAILYLAB CBC - COMP BLD CT W/AUTO DIFF [HEME] DAILYLAB CRP - C-REACTIVE PROTEIN [CHEM] DAILYLAB 02/11/21 05:00 CRP - C-REACTIVE PROTEIN [CHEM] DAILYLAB Subjective - Subjective Patient Reports: Feeling Better Objective Vital Signs: Vital Signs - 24 hr 02/06/21 02/06/21 02/06/21 16:52 19:11 20:38 Temperature 38.8 C H 39 C H Heart Rate [ 89 103 H Brachial] Respiratory 18 18 Rate Blood Pressure Blood Pressure 116/78 93/59 L 109/66 [Right Brachial artery] O2 Saturation 96 96 02/06/21 02/06/21 02/06/21 20:45 21:15 21:57 Temperature 37.9 C Heart Rate [ Brachial] Respiratory Rate Blood Pressure 109/66 103/62 Blood Pressure [Right Brachial artery] O2 Saturation 02/07/21 02/07/21 02/07/21 00:00 04:38 07:43 Temperature 36.8 C 37.0 C 37.7 C Heart Rate [ 87 100 102 H Brachial] Respiratory 18 20 20 Rate Blood Pressure Blood Pressure 93/57 L 120/79 108/78 [Right Brachial artery] O2 Saturation 97 100 97 02/07/21 11:38 Temperature 37.3 C Heart Rate [ 88 Brachial] Respiratory 18 Rate Blood Pressure Blood Pressure 112/66 [Right Brachial artery] O2 Saturation 96 Oxygen O2 Source Room air I&O (Last 24 Hrs): Intake and Output Totals x24h 02/05/21 02/06/21 02/07/21 23:59 23:59 23:59 Intake Total 1440 2640.163 Output Total 300 Balance 1140 2640.163 General: Alert, Oriented x3, Cooperative, No acute distress HEENT: Atraumatic Neck: Supple Lymphatic: no adenopathy Neuro: Alert, Non Focal, Oriented Times 3 Cardiovascular: Regular rate Respiratory: Chest non-tender, No respiratory distress, Breath sounds nml Abdomen: Normal bowel sounds, Soft, No tenderness Extremities: Normal pulses - Results Results: Laboratory Results WBC 9.5 x10^3/uL (4.8-10.8) 02/07/21 05:16 RBC 3.80 10^6/uL (4.70-6.10) L 02/07/21 05:16 Hgb 11.4 g/dL (14.0-18.0) L 02/07/21 05:16 Hct 34.0 % (42.0-52.0) L 02/07/21 05:16 MCV 89.5 fL (80.0-94.0) 02/07/21 05:16 MCH 30.0 pg (27.0-31.0) 02/07/21 05:16 MCHC 33.5 g/dL (32.0-36.0) 02/07/21 05:16 RDW 14.2 % (12.0-15.0) 02/07/21 05:16 Plt Count 78 10^3/uL (130-450) L 02/07/21 05:16 MPV 10.6 fL (7.4-11.4) 02/07/21 05:16 Neut # (Auto) 8.8 10^3/uL (1.5-6.6) H 02/07/21 05:16 Lymph # (Auto) 0.1 10^3/uL (1.5-3.5) L 02/07/21 05:16 [place] # (Auto) 0.4 10^3/uL (0.0-1.0) 02/07/21 05:16 Eos # (Auto) 0.0 10^3/uL (0.0-0.7) 02/07/21 05:16 Baso # (Auto) 0.0 10^3/uL (0.0-0.1) 02/07/21 05:16 Absolute Nucleated RBC 0.00 x10^3/uL 02/07/21 05:16 Nucleated RBC % 0.0 /100WBC 02/07/21 05:16 Sodium 132 mmol/L (135-145) L 02/07/21 05:16 Potassium 3.0 mmol/L (3.5-5.0) L 02/07/21 05:16 Chloride 98 mmol/L (101-111) L 02/07/21 05:16 Carbon Dioxide 26 mmol/L (21-32) 02/07/21 05:16 Anion Gap 8.0 (6-13) 02/07/21 05:16 BUN 24 mg/dL (6-20) H 02/07/21 05:16 Creatinine 0.8 mg/dL (0.6-1.2) 02/07/21 05:16 Estimated GFR (MDRD) 95 (>89) 02/07/21 05:16 Glucose 103 mg/dL (70-100) H 02/07/21 05:16 Lactic Acid 1.0 mmol/L (0.5-2.2) 02/07/21 11:05 Calcium 7.7 mg/dL (8.5-10.3) L 02/07/21 05:16 Total Bilirubin 0.9 mg/dL (0.2-1.0) 02/06/21 13:13 AST 14 IU/L (10-42) 02/06/21 13:13 ALT 16 IU/L (10-60) 02/06/21 13:13 Alkaline Phosphatase 37 IU/L (42-121) L 02/06/21 13:13 C-Reactive Protein 20.6 mg/dL (0-1.0) H 02/07/21 05:16 Total Protein 6.7 g/dL (6.7-8.2) 02/06/21 13:13 Albumin 3.6 g/dL (3.2-5.5) 02/06/21 13:13 Globulin 3.1 g/dL (2.1-4.2) 02/06/21 13:13 Albumin/Globulin Ratio 1.2 (1.0-2.2) 02/06/21 13:13 Urine Color YELLOW 02/06/21 18:58 Urine Clarity CLEAR (CLEAR) 02/06/21 18:58 Urine pH 6.5 PH (5.0-7.5) 02/06/21 18:58 Ur Specific [place] 1.020 (1.002-1.030) 02/06/21 18:58 Urine Protein 30 mg/dL (NEGATIVE) H 02/06/21 18:58 Urine Glucose (UA) NEGATIVE mg/dL (NEGATIVE) 02/06/21 18:58 Urine Ketones NEGATIVE mg/dL (NEGATIVE) 02/06/21 18:58 Urine Occult Blood NEGATIVE (NEGATIVE) 02/06/21 18:58 Urine Nitrite NEGATIVE (NEGATIVE) 02/06/21 18:58 Urine Bilirubin NEGATIVE (NEGATIVE) 02/06/21 18:58 Urine Urobilinogen 0.2 (NORMAL) E.U./dL (NORMAL) 02/06/21 18:58 Ur Leukocyte Esterase NEGATIVE (NEGATIVE) 02/06/21 18:58 Urine RBC 0-5 /HPF (0-5) 02/06/21 18:58 Urine WBC 0-3 /HPF (0-3) 02/06/21 18:58 Ur Squamous Epith Cells RARE Squamous (<= Few) 02/06/21 18:58 Urine Bacteria None Seen /HPF (None Seen) 02/06/21 18:58 Urine Culture Comments NOT INDICATED 02/06/21 18:58 Nasal Adenovirus (PCR) NOT DETECTED 02/06/21 14:46 Nasal B. parapertussis DNA (PCR) NOT DETECTED 02/06/21 14:46 Nasal Coronavir 229E PCR NOT DETECTED 02/06/21 14:46 Nasal Coronavir HKU1 PCR NOT DETECTED 02/06/21 14:46 Nasal Coronavir NL63 PCR NOT DETECTED 02/06/21 14:46 Nasal Coronavir OC43 PCR NOT DETECTED 02/06/21 14:46 Nasal Enterovir/Rhinovir PCR NOT DETECTED 02/06/21 14:46 Nasal Influenza B PCR NOT DETECTED 02/06/21 14:46 Nasal Influenza A PCR NOT DETECTED 02/06/21 14:46 Nasal Parainfluen 1 PCR NOT DETECTED 02/06/21 14:46 Nasal Parainfluen 2 PCR NOT DETECTED 02/06/21 14:46 Nasal Parainfluen 3 PCR NOT DETECTED 02/06/21 14:46 Nasal Parainfluen 4 PCR NOT DETECTED 02/06/21 14:46 Nasal RSV (PCR) NOT DETECTED 02/06/21 14:46 Nasal Screen MRSA (PCR) NEGATIVE (NEGATIVE) 02/06/21 18:03 Nasal B.pertussis DNA PCR NOT DETECTED 02/06/21 14:46 Nasal C.pneumoniae (PCR) NOT DETECTED 02/06/21 14:46 Esteban Human Metapneumo PCR NOT DETECTED 02/06/21 14:46 Nasal M.pneumoniae (PCR) NOT DETECTED 02/06/21 14:46 Nasal SARS-CoV-2 (PCR) NOT DETECTED 02/06/21 14:46 - Procedures Procedures: Procedures EXCISION OF DUODENUM, ENDO, DIAGN (05/19/19) EXCISION OF LOWER ESOPHAGUS, ENDO, DIAGN (05/19/19) EXCISION OF STOMACH, PYLORUS, ENDO, DIAGN (05/19/19) Sepsis Event Note (H) - Evaluation Possible source of Sepsis: positive: Skin/soft tissue ABX Reporting Has patient been on IV antibiotics over the past 48 hours?: Yes Current Medications - Current Medications Current Medications: Active Medications Acetaminophen (Acetaminophen 325 Mg Tablet) 650 mg PO Q4HR PRN PRN Reason: Pain or Fever > 38C (100.4F) Dabigatran (Dabigatran 75 Mg Capsule) 150 mg PO DAILY [facility] Last Admin: 02/07/21 08:04 Dose: 150 mg Documented by: Ampicillin Sodium/Sulbactam (Sodium 3 gm/ Sodium Chloride) 100 mls @ 200 mls/hr IV Q6H [facility] Last Infusion: 02/07/21 12:13 Dose: Infused Documented by: Sodium Chloride (Normal Saline 0.9%) 1,000 mls @ 100 mls/hr IV .Q10H [facility] Stop: 02/08/21 06:59 Last Admin: 02/07/21 11:33 Dose: 100 mls/hr Documented by: Metoprolol Succinate (Metoprolol Succinate 50 Mg Tablet) 100 mg PO DAILY [facility] Last Admin: 02/07/21 08:04 Dose: 100 mg Documented by: Metoprolol Tartrate (Metoprolol 5 Mg/5 Ml Vial) 5 mg IVP Q6H PRN PRN Reason: Tachycardia Last Admin: 02/06/21 20:45 Dose: 5 mg Documented by: Ondansetron HCl (Ondansetron 4 Mg/2 Ml Vial) 4 mg IVP Q6HR PRN PRN Reason: Nausea / Vomiting Oxycodone HCl (Oxycodone 5 Mg Tablet) 5 mg PO Q4HR PRN PRN Reason: Pain 5 to 7 Saccharomyces Boulardii (Saccharomyces Boulardii 250 Mg Capsule) 500 mg PO BIDWM [facility] Sodium Chloride (Sodium Chloride Flush 0.9% 10 Ml Syringe) 10 ml IVP PRN PRN PRN Reason: NEEDED PER PROVIDER ORDERS Sodium Chloride (Sodium Chloride Flush 0.9% 10 Ml Syringe) 10 ml IVP 0100,0900 ,1700 [facility] Last Admin: 02/07/21 08:04 Dose: 10 ml Documented by: Sodium Chloride (Sodium Chloride Flush 0.9% 10 Ml Syringe) 20 ml IVP PRN PRN PRN Reason: After Blood Draw Chlorthalidone 50 mg PO DAILY 05/18/19 Dabigatran Etexilate Mesylate [Pradaxa] 150 mg PO DAILY 05/18/19 Simvastatin 40 mg PO DAILY PM 05/18/19 lisinopriL [Lisinopril] 20 mg PO DAILY 05/18/19 Ferrous Gluconate [Iron] 65 mg PO DAILY 06/17/19 Metoprolol Succinate [Toprol Xl] 100 mg PO DAILY 06/17/19 Aspirin 81 mg PO DAILY 07/09/19 Multivitamin [Multivitamins] 1 cap PO DAILY 07/09/19 Cholecalciferol (Vitamin D3) [Vitamin D3] 25 mcg PO DAILY 02/06/21 Cyanocobalamin (Vitamin B-12) [Vitamin B-12] 1,000 mcg PO DAILY 02/06/21
[2021-02-07] MEDS: SACCHAROMYCES BOULARDII 250 MG CAPSULE PO SCH (16:29)
[2021-02-07] MEDS: LOPERAMIDE 2 MG CAPSULE PO PRN (22:18)
[2021-02-08] MEDS: AMPICILLIN/SULBACTAM 3 GM in SODIUM CHLORIDE 0.9% MINIBAG 100 ML IV SCH ×4 (00:57→17:55)
[2021-02-08] MEDS: SODIUM CHLORIDE FLUSH 0.9% 10 ML SYRINGE IVP SCH ×3 (00:59→17:52)
[2021-02-08] MEDS: SODIUM CHLORIDE 0.9% 1,000 ML IV SCH (04:29)
[2021-02-08] MEDS: LOPERAMIDE 2 MG CAPSULE PO PRN ×2 (05:30→12:53)
[2021-02-08 05:54] LABS: BASOPHILS % (AUTO) 0.2 %; EOSINOPHILS # (AUTO) 0.1 10^3/uL (0.0-0.7); EOSINOPHILS % (AUTO) 1.9 %; HGB - HEMOGLOBIN 11.8 g/dL (14.0-18.0); LYMPHOCYTES # (AUTO) 0.1 10^3/uL (1.5-3.5); LYMPHOCYTES % (AUTO) 1.1 %; MEAN CORPUSCULAR HEMOGLOBIN 30.3 pg (27.0-31.0); MEAN CORPUSCULAR HGB CONC 33.7 g/dL (32.0-36.0); MEAN PLATELET VOLUME 10.9 fL (7.4-11.4); MONOCYTES # (AUTO) 0.5 10^3/uL (0.0-1.0); MONOCYTES % (AUTO) 7.4 %; NEUTROPHILS # (AUTO) 5.5 10^3/uL (1.5-6.6); NEUTROPHILS % (AUTO) 88.3 %; PLT - PLATELET COUNT 86 10^3/uL (130-450); RED BLOOD COUNT 3.89 10^6/uL (4.70-6.10); WHITE BLOOD COUNT 6.2 x10^3/uL (4.8-10.8)
[2021-02-08 06:10] LABS: CALCIUM 7.7 mg/dL (8.5-10.3); CREATININE 0.7 mg/dL (0.6-1.2)
[2021-02-08] MEDS ORDERED: POTASSIUM CHLORIDE 20 MEQ TABLET PO ONE (08:08)
[2021-02-08] MEDS: SACCHAROMYCES BOULARDII 250 MG CAPSULE PO SCH ×2 (08:40→17:52)
[2021-02-08] MEDS: DABIGATRAN 75 MG CAPSULE PO SCH (08:40)
[2021-02-08] MEDS: METOPROLOL SUCCINATE 50 MG TABLET PO SCH (08:41)
[2021-02-08] MEDS: POTASSIUM CHLOR 10 MEQ/100 ML 10 MEQ/100 ML BAG IV SCH ×2 (08:43→09:51)
--- NOTE | 2021-02-08 14:42 | PROVIDER PROGRESS NOTE ---
Assessment/Plan - Problem List (1) Cellulitis of right leg without foot Assessment/Plan: 02/08 Patient has no fever on last night. Patient's right lower extremity still show some erythema, slightly better. And WBC become normal range, CRP trending down. We will continue for 1 more day with intravenous antibiotics. 02/07 Patient had fever at home last night at the high 39 degree. But the patient WBC is down to the normal range, clinically patient erythema area is significantly reduced. Blood culture is still pending. We will continue Unasyn, add probiotics for patient. But pt has recently diagnosis of Lymphoma which can also cause pt's fever. Patient has a history of the right lower extremity wound, But it was healed. Patient also has history of PAD And bypass surgery. Now patient's right lower extremity show erythema, swelling, and warmth. WBC is 17, but the patient has no fever. Blood culture was done in the ER. According to patient previous wound culture at the same location, Right lower extremity, Which show enterococcal infection. We will choose Unasyn for patient. Patient's skin is intact, We will follow up blood culture as well. Gently intravenous IV fluids for pt. 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 HR is stable, Continue home metoprolol, continue home Pradaxa, Continue principal secretary Patient has a history atrial fibrillation, patient had heart rate 114, We will resume patient home medication metoprolol, we will add the intravenous metoprolol as needed, Continue principal secretary, continue vital signs monitor, We will resume patient Pradaxa, his home medication (3) Lymphoma Conclusion/Plan: Patient was recently diagnosis of lymphoma, patient already had 1 time chemo treatment, patient will continue to have chemo treatment then will have r adiation treatment, Advised patient continue follow-up his oncologist. (4) HTN (hypertension) Conclusion/Plan: Patient has a history hypertension, patient takes lisinopril and metoprolol in the home, we will resume metoprolol now, Continue vital signs monitor (5) PAD (peripheral artery disease) Conclusion/Plan: Patient has a history of PAD, patient follow-up with his vascular surgeon (3) Lymphoma Qualifiers: Lymphoma type: unspecified type Lymphoma site: inguinal Qualified Code(s): C85.95 - Non-Hodgkin lymphoma, unspecified, lymph nodes of inguinal region and lower limb - Current Meds Current Meds: Current Medications Generic Name Dose Route Start Last Admin Trade Name Freq PRN Reason Stop Dose Admin Acetaminophen 650 mg 02/06/21 21:25 02/07/21 16:29 Acetaminophen 325 Mg Tablet PO 650 mg Q4HR PRN Administration Pain or Fever > 38C (100.4F) Dabigatran 150 mg 02/07/21 09:00 02/08/21 08:40 Dabigatran 75 Mg Capsule PO 150 mg DAILY [facility] Administration Ampicillin Sodium/Sulbactam 100 mls @ 200 mls/hr 02/07/21 00:00 02/08/21 13:36 Sodium 3 gm/ Sodium Chloride IV Infused Q6H [facility] Infusion Loperamide HCl 2 mg 02/07/21 21:10 02/08/21 12:53 Loperamide 2 Mg Capsule PO 2 mg QID PRN Administration Diarrhea Metoprolol Succinate 100 mg 02/07/21 09:00 02/08/21 08:41 Metoprolol Succinate 50 Mg Tablet PO 100 mg DAILY [facility] Administration Metoprolol Tartrate 5 mg 02/06/21 14:53 02/06/21 20:45 Metoprolol 5 Mg/5 Ml Vial IVP 5 mg Q6H PRN Administration Tachycardia Saccharomyces Boulardii 500 mg 02/07/21 17:00 02/08/21 08:40 Saccharomyces Boulardii 250 Mg Capsule PO 500 mg BIDWM [facility] Administration Sodium Chloride 10 ml 02/06/21 17:00 02/08/21 08:42 Sodium Chloride Flush 0.9% 10 Ml Syringe IVP Not Given 0100,0900,1700 [facility] - Lab Result Fish Bone Diagrams: 02/08/21 05:35 02/08/21 05:35 - Additional Planning My Orders: My Active Orders 02/07/21 17:00 Saccharomyces Boulardii [Florastor] 500 mg PO BIDWM 02/09/21 05:00 BMP - BASIC METABOLIC PANEL [CHEM] DAILYLAB CBC - COMP BLD CT W/AUTO DIFF [HEME] DAILYLAB CRP - C-REACTIVE PROTEIN [CHEM] DAILYLAB 02/10/21 05:00 BMP - BASIC METABOLIC PANEL [CHEM] DAILYLAB CBC - COMP BLD CT W/AUTO DIFF [HEME] DAILYLAB CRP - C-REACTIVE PROTEIN [CHEM] DAILYLAB 02/11/21 05:00 CRP - C-REACTIVE PROTEIN [CHEM] DAILYLAB Subjective - Subjective Patient Reports: Feeling Better Objective Vital Signs: Vital Signs - 24 hr 02/07/21 02/07/21 02/08/21 15:58 19:42 01:00 Temperature 37.8 C 37.0 C Heart Rate [ 94 80 88 Brachial] Respiratory 20 18 18 Rate Blood Pressure 104/71 102/74 101/73 [Right Brachial artery] O2 Saturation 98 97 98 02/08/21 02/08/21 02/08/21 02:17 04:35 08:30 Temperature 36.6 C 36.6 C 37.0 C Heart Rate [ 83 96 Brachial] Respiratory 18 18 Rate Blood Pressure 123/83 H 112/70 [Right Brachial artery] O2 Saturation 100 97 02/08/21 13:30 Temperature 37.0 C Heart Rate [ 92 Brachial] Respiratory 16 Rate Blood Pressure 106/56 L [Right Brachial artery] O2 Saturation 97 Oxygen O2 Source Room air I&O (Last 24 Hrs): Intake and Output Totals x24h 02/06/21 02/07/21 02/08/21 23:59 23:59 23:59 Intake Total 1440 2980.163 2826.667 Output Total 300 Balance 1140 2980.163 2826.667 General: Alert, Oriented x3, Cooperative, No acute distress HEENT: Atraumatic Neck: Supple Lymphatic: no adenopathy Neuro: Alert, Non Focal, Oriented Times 3 Cardiovascular: Regular rate, Normal S1, Normal S2 Respiratory: Chest non-tender, No respiratory distress Abdomen: Normal bowel sounds, Soft Extremities: Normal pulses - Results Results: Laboratory Results WBC 6.2 x10^3/uL (4.8-10.8) 02/08/21 05:35 RBC 3.89 10^6/uL (4.70-6.10) L 02/08/21 05:35 Hgb 11.8 g/dL (14.0-18.0) L 02/08/21 05:35 Hct 35.0 % (42.0-52.0) L 02/08/21 05:35 MCV 90.0 fL (80.0-94.0) 02/08/21 05:35 MCH 30.3 pg (27.0-31.0) 02/08/21 05:35 MCHC 33.7 g/dL (32.0-36.0) 02/08/21 05:35 RDW 14.0 % (12.0-15.0) 02/08/21 05:35 Plt Count 86 10^3/uL (130-450) L 02/08/21 05:35 MPV 10.9 fL (7.4-11.4) 02/08/21 05:35 Neut # (Auto) 5.5 10^3/uL (1.5-6.6) 02/08/21 05:35 Lymph # (Auto) 0.1 10^3/uL (1.5-3.5) L 02/08/21 05:35 Lewis # (Auto) 0.5 10^3/uL (0.0-1.0) 02/08/21 05:35 Eos # (Auto) 0.1 10^3/uL (0.0-0.7) 02/08/21 05:35 Baso # (Auto) 0.0 10^3/uL (0.0-0.1) 02/08/21 05:35 Absolute Nucleated RBC 0.00 x10^3/uL 02/08/21 05:35 Nucleated RBC % 0.0 /100WBC 02/08/21 05:35 Sodium 132 mmol/L (135-145) L 02/08/21 05:35 Potassium 3.0 mmol/L (3.5-5.0) L 02/08/21 05:35 Chloride 98 mmol/L (101-111) L 02/08/21 05:35 Carbon Dioxide 26 mmol/L (21-32) 02/08/21 05:35 Anion Gap 8.0 (6-13) 02/08/21 05:35 BUN 17 mg/dL (6-20) 02/08/21 05:35 Creatinine 0.7 mg/dL (0.6-1.2) 02/08/21 05:35 Estimated GFR (MDRD) 111 (>89) 02/08/21 05:35 Glucose 91 mg/dL (70-100) 02/08/21 05:35 Lactic Acid 1.0 mmol/L (0.5-2.2) 02/07/21 11:05 Calcium 7.7 mg/dL (8.5-10.3) L 02/08/21 05:35 Total Bilirubin 0.9 mg/dL (0.2-1.0) 02/06/21 13:13 AST 14 IU/L (10-42) 02/06/21 13:13 ALT 16 IU/L (10-60) 02/06/21 13:13 Alkaline Phosphatase 37 IU/L (42-121) L 02/06/21 13:13 C-Reactive Protein 16.0 mg/dL (0-1.0) H 02/08/21 05:35 Total Protein 6.7 g/dL (6.7-8.2) 02/06/21 13:13 Albumin 3.6 g/dL (3.2-5.5) 02/06/21 13:13 Globulin 3.1 g/dL (2.1-4.2) 02/06/21 13:13 Albumin/Globulin Ratio 1.2 (1.0-2.2) 02/06/21 13:13 Urine Color YELLOW 02/06/21 18:58 Urine Clarity CLEAR (CLEAR) 02/06/21 18:58 Urine pH 6.5 PH (5.0-7.5) 02/06/21 18:58 Ur Specific [place] 1.020 (1.002-1.030) 02/06/21 18:58 Urine Protein 30 mg/dL (NEGATIVE) H 02/06/21 18:58 Urine Glucose (UA) NEGATIVE mg/dL (NEGATIVE) 02/06/21 18:58 Urine Ketones NEGATIVE mg/dL (NEGATIVE) 02/06/21 18:58 Urine Occult Blood NEGATIVE (NEGATIVE) 02/06/21 18:58 Urine Nitrite NEGATIVE (NEGATIVE) 02/06/21 18:58 Urine Bilirubin NEGATIVE (NEGATIVE) 02/06/21 18:58 Urine Urobilinogen 0.2 (NORMAL) E.U./dL (NORMAL) 02/06/21 18:58 Ur Leukocyte Esterase NEGATIVE (NEGATIVE) 02/06/21 18:58 Urine RBC 0-5 /HPF (0-5) 02/06/21 18:58 Urine WBC 0-3 /HPF (0-3) 02/06/21 18:58 Ur Squamous Epith Cells RARE Squamous (<= Few) 02/06/21 18:58 Urine Bacteria None Seen /HPF (None Seen) 02/06/21 18:58 Urine Culture Comments NOT INDICATED 02/06/21 18:58 Nasal Adenovirus (PCR) NOT DETECTED 02/06/21 14:46 Nasal B. parapertussis DNA (PCR) NOT DETECTED 02/06/21 14:46 Nasal Coronavir 229E PCR NOT DETECTED 02/06/21 14:46 Nasal Coronavir HKU1 PCR NOT DETECTED 02/06/21 14:46 Nasal Coronavir NL63 PCR NOT DETECTED 02/06/21 14:46 Nasal Coronavir OC43 PCR NOT DETECTED 02/06/21 14:46 Nasal Enterovir/Rhinovir PCR NOT DETECTED 02/06/21 14:46 Nasal Influenza B PCR NOT DETECTED 02/06/21 14:46 Nasal Influenza A PCR NOT DETECTED 02/06/21 14:46 Nasal Parainfluen 1 PCR NOT DETECTED 02/06/21 14:46 Nasal Parainfluen 2 PCR NOT DETECTED 02/06/21 14:46 Nasal Parainfluen 3 PCR NOT DETECTED 02/06/21 14:46 Nasal Parainfluen 4 PCR NOT DETECTED 02/06/21 14:46 Nasal RSV (PCR) NOT DETECTED 02/06/21 14:46 Nasal Screen MRSA (PCR) NEGATIVE (NEGATIVE) 02/06/21 18:03 Nasal B.pertussis DNA PCR NOT DETECTED 02/06/21 14:46 Nasal C.pneumoniae (PCR) NOT DETECTED 02/06/21 14:46 Esteban Human Metapneumo PCR NOT DETECTED 02/06/21 14:46 Nasal M.pneumoniae (PCR) NOT DETECTED 02/06/21 14:46 Nasal SARS-CoV-2 (PCR) NOT DETECTED 02/06/21 14:46 Stl C. diff Tox B Gene NEGATIVE (NEGATIVE) 02/07/21 15:30 - Procedures Procedures: Procedures EXCISION OF DUODENUM, ENDO, DIAGN (05/19/19) EXCISION OF LOWER ESOPHAGUS, ENDO, DIAGN (05/19/19) EXCISION OF STOMACH, PYLORUS, ENDO, DIAGN (05/19/19) Sepsis Event Note (H) - Evaluation Possible source of Sepsis: positive: Skin/soft tissue ABX Reporting Has patient been on IV antibiotics over the past 48 hours?: Yes Current Medications - Current Medications Current Medications: Active Medications Acetaminophen (Acetaminophen 325 Mg Tablet) 650 mg PO Q4HR PRN PRN Reason: Pain or Fever > 38C (100.4F) Last Admin: 02/07/21 16:29 Dose: 650 mg Documented by: Dabigatran (Dabigatran 75 Mg Capsule) 150 mg PO DAILY [facility] Last Admin: 02/08/21 08:40 Dose: 150 mg Documented by: Ampicillin Sodium/Sulbactam (Sodium 3 gm/ Sodium Chloride) 100 mls @ 200 mls/hr IV Q6H [facility] Last Infusion: 02/08/21 13:36 Dose: Infused Documented by: Loperamide HCl (Loperamide 2 Mg Capsule) 2 mg PO QID PRN PRN Reason: Diarrhea Last Admin: 02/08/21 12:53 Dose: 2 mg Documented by: Metoprolol Succinate (Metoprolol Succinate 50 Mg Tablet) 100 mg PO DAILY [facility] Last Admin: 02/08/21 08:41 Dose: 100 mg Documented by: Metoprolol Tartrate (Metoprolol 5 Mg/5 Ml Vial) 5 mg IVP Q6H PRN PRN Reason: Tachycardia Last Admin: 02/06/21 20:45 Dose: 5 mg Documented by: Ondansetron HCl (Ondansetron 4 Mg/2 Ml Vial) 4 mg IVP Q6HR PRN PRN Reason: Nausea / Vomiting Oxycodone HCl (Oxycodone 5 Mg Tablet) 5 mg PO Q4HR PRN PRN Reason: Pain 5 to 7 Saccharomyces Boulardii (Saccharomyces Boulardii 250 Mg Capsule) 500 mg PO BIDWM [facility] Last Admin: 02/08/21 08:40 Dose: 500 mg Documented by: Sodium Chloride (Sodium Chloride Flush 0.9% 10 Ml Syringe) 10 ml IVP PRN PRN PRN Reason: NEEDED PER PROVIDER ORDERS Sodium Chloride (Sodium Chloride Flush 0.9% 10 Ml Syringe) 10 ml IVP 0100,0900,1700 [facility] Last Admin: 02/08/21 08:42 Dose: Not Given Documented by: Sodium Chloride (Sodium Chloride Flush 0.9% 10 Ml Syringe) 20 ml IVP PRN PRN PRN Reason: After Blood Draw Chlorthalidone 50 mg PO DAILY 05/18/19 Dabigatran Etexilate Mesylate [Pradaxa] 150 mg PO BID 05/18/19 Simvastatin 40 mg PO DAILY PM 05/18/19 lisinopriL [Lisinopril] 20 mg PO DAILY 05/18/19 Ferrous Gluconate [Iron] 65 mg PO DAILY 06/17/19 Metoprolol Succinate [Toprol Xl] 100 mg PO DAILY 06/17/19 Aspirin 81 mg PO DAILY 07/09/19 Multivitamin [Multivitamins] 1 cap PO DAILY 07/09/19 Cholecalciferol (Vitamin D3) [Vitamin D3] 25 mcg PO DAILY 02/06/21 Cyanocobalamin (Vitamin B-12) [Vitamin B-12] 1,000 mcg PO DAILY 02/06/21
[2021-02-08] MEDS: SODIUM CHLORIDE FLUSH 0.9% 10 ML SYRINGE IVP PRN (18:31)
[2021-02-09] MEDS: AMPICILLIN/SULBACTAM 3 GM in SODIUM CHLORIDE 0.9% MINIBAG 100 ML IV SCH ×2 (00:58→05:55)
[2021-02-09] MEDS: SODIUM CHLORIDE FLUSH 0.9% 10 ML SYRINGE IVP SCH (01:04)
[2021-02-09] MEDS: SODIUM CHLORIDE FLUSH 0.9% 10 ML SYRINGE IVP PRN ×3 (01:35→06:09)
[2021-02-09] MEDS: LOPERAMIDE 2 MG CAPSULE PO PRN (06:06)
[2021-02-09 06:12] LABS: BASOPHILS % (AUTO) 0.7 %; EOSINOPHILS # (AUTO) 0.2 10^3/uL (0.0-0.7); EOSINOPHILS % (AUTO) 3.2 %; HGB - HEMOGLOBIN 11.9 g/dL (14.0-18.0); LYMPHOCYTES # (AUTO) 0.1 10^3/uL (1.5-3.5); LYMPHOCYTES % (AUTO) 2.3 %; MEAN CORPUSCULAR HEMOGLOBIN 30.2 pg (27.0-31.0); MEAN CORPUSCULAR VOLUME 88.8 fL (80.0-94.0); MEAN PLATELET VOLUME 10.3 fL (7.4-11.4); MONOCYTES # (AUTO) 0.5 10^3/uL (0.0-1.0); MONOCYTES % (AUTO) 8.8 %; NEUTROPHILS # (AUTO) 5.1 10^3/uL (1.5-6.6); NEUTROPHILS % (AUTO) 84.3 %; PLT - PLATELET COUNT 115 10^3/uL (130-450); RED BLOOD COUNT 3.94 10^6/uL (4.70-6.10); RED CELL DISTRIBUTION WIDTH 13.7 % (12.0-15.0)
[2021-02-09 06:29] LABS: CALCIUM 8.1 mg/dL (8.5-10.3); CREATININE 0.6 mg/dL (0.6-1.2); POTASSIUM 3.3 mmol/L (3.5-5.0)
[2021-02-09] MEDS ORDERED: POTASSIUM CHLORIDE 20 MEQ TABLET PO ONE (07:12)
[2021-02-09 07:38] VITALS: BP 144/92
[2021-02-09] MEDS: METOPROLOL SUCCINATE 50 MG TABLET PO SCH (08:20)
[2021-02-09] MEDS: DABIGATRAN 75 MG CAPSULE PO SCH (08:22)
[2021-02-09] MEDS: SACCHAROMYCES BOULARDII 250 MG CAPSULE PO SCH (08:22)
--- NOTE | 2021-02-09 10:24 | Discharge Plan ---
Discharge Plan Problem Reviewed?: Yes Disposition: Home, Self Care Condition: Stable Prescriptions: Amox/Clav 875/125 [Augmentin 875/125 Tab] 1 tablet PO Q12H 5 Days #10 tablet Saccharomyces Boulardii [Florastor] 500 mg PO BIDWM 5 Days #20 cap Diet: Regular Activity Restrictions: No Restrictions Shower Restrictions: No (fall precaution) Instruction Topics: Cellulitis Dc, Amoxicillin Clavulanic Acid tablets Health Concerns: cellulitis Plan of Treatment: Antibiotics Augmentin is prescribed for you to finish the treatment course, you may keep hygiene for your lower extremity. Resume your home medication as the schedule. Care Goals: stabilization and improvement/resolve of your right lower extremity cellulitis Assessment: discussed the care plan with you, answered your questions, you understood Additional Instructions or Follow Up instructions: You may followup with your PCP in one to two weeks. Should your symptoms return or worsen, you may present ER or call 911 for help. No Smoking: If you smoke, Please STOP! Call for help. Follow-up with: Renay Chandler MD [Primary Care Provider] -
--- NOTE | 2021-02-09 10:32 | DISCHARGE SUMMARY ---
Discharge Summary Admit Date: 02/06/21 Discharge Date: 02/09/21 Discharging Provider: Jose M Manjarrez Primary Care Provider: Dr. Renay Chandler Condition at Discharge: Stable Discharge Disposition: 01 Home, Self Care Discharge Facility Name: home - DIAGNOSES Discharge Diagnoses with Status of Each Condition: (1) Cellulitis of right leg without foot great improved. erythema and swelling of right lower extremity is significant improved. Patient has no more fever, blood cultures negative for bacteremia, WBC in the normal range, CRP continue trending down. According to previous patient' Wound culture culture in the same location, Patient is prescribed Augmentin for discharge (2) Atrial fibrillation with rapid ventricular response Resolved, resume home medication (3) Lymphoma Advised patient continue follow-up his oncologist. (4) HTN (hypertension) Stable (5) PAD (peripheral artery disease) Stable, Patient may continue follow-up with his surgeon - HPI History of Present Illness: This is a 70-years old male with a past medical history significant for recently diagnosis of lymphoma on chemo therapy, Hypertension, atrial fibrillation on Pradaxa, sleep apnea on CPAP, peripheral arterial disease of arterial insufficiency with wounds on the right leg but slow healed, Who presented ER complaint right lower extremity erythema and swollen. pt report This started last night. He denies pain, report slight elevated temperature but he denies fever or chill. pt has recently diagnosis of lymphoma in his right groins area. He is currently undergoing the first course of chemotherapy which was 1 week ago and it is scheduled again in approximately 3 weeks. Pt report once that course o f chemotherapy is completed then he will undergo radiation. Ultrasound of right lower extremity show no DVT. Routine laboratory tests that show WBC is 17, lactic acid of 1.8. In the ER, patient is afebrile, heart rate is 114, Normal range blood pressure, 100% sats on low air. ER provider call patient's oncologist, oncologist recommended patient was admitted to inpatient to treat cellulitis. Given above medical condition, medical team was consulted for admission. Discussed the care goal with the patient, patient hope to have full code - HOSPITAL COURSE Hospital Course: Patient was admitted for right Lower extremity cellulitis. patient developed fever in the hospital. Patient was treated with intravenous antibiotics, and intravenous IV fluids, Pain control. After treatment, patient's erythema and swelling at the right lower extremity has significantly improved. Patient has no more fever, blood culture is negative for bacteremia, WBC normal range, CRP trended down. Patient is prescribed oral antibiotics to finish the treatment course. Patient is D/C at hemodynamically stable condition - ALLERGIES Allergies/Adverse Reactions: Allergies Allergy/AdvReac Type Severity Reaction Status Date / Time No Known Drug Allergies Allergy Verified 02/06/21 12:09 - MEDICATIONS Home Medications: Ambulatory Orders Medication Instructions Recorded Confirmed Chlorthalidone 50 mg PO DAILY 05/18/19 02/06/21 Dabigatran Etexilate Mesylate 150 mg PO BID 05/18/19 02/08/21 [Pradaxa] Simvastatin 40 mg PO DAILY PM 05/18/19 02/06/21 lisinopriL [Lisinopril] 20 mg PO DAILY 05/18/19 02/06/21 Ferrous Gluconate [Iron] 65 mg PO DAILY 06/17/19 02/06/21 Metoprolol Succinate [Toprol Xl] 100 mg PO DAILY 06/17/19 02/06/21 Aspirin 81 mg PO DAILY 07/09/19 02/06/21 Multivitamin [Multivitamins] 1 cap PO DAILY 07/09/19 02/06/21 Cholecalciferol (Vitamin D3) 25 mcg PO DAILY 02/06/21 02/06/21 [Vitamin D3] Cyanocobalamin (Vitamin B-12) 1,000 mcg PO DAILY 02/06/21 02/06/21 [Vitamin B-12] Amox/Clav 875/125 [Augmentin 1 tablet PO Q12H 5 Days #10 tablet 02/09/21 875/125 Tab] Saccharomyces Boulardii [Florastor] 500 mg PO BIDWM 5 Days #20 cap 02/09/21 - PHYSICAL EXAM AT DISCHARGE General Appearance: positive: No acute distress, Alert. negative: Lethargic Eyes Bilateral: positive: Normal inspection, PERRL, No lid inflammation ENT: positive: ENT inspection nml, No signs of dehydration. negative: Purulent nasal drainage Neck: positive: Nml inspection, Trachea midline. negative: Thyromegaly, Tracheal deviation Respiratory: positive: Chest non-tender, No respiratory distress. negative: Whe ezes, Rales Cardiovascular: positive: Regular rate & rhythm, No murmur. negative: Tachycardia, Bradycardia, Systolic murmur, Diastolic murmur Peripheral Pulses: positive: 2+ Abdomen: positive: Non-tender, Nml bowel sounds, No distention. negative: Tenderness Back: positive: Nml inspection Skin: positive: Color nml, Warm, Dry, Other (Right lower extremity show mild erythema, slightly swelling, Significantly improved compared with his admission). negative: Cyanosis, Diaphoresis Extremities: positive: Non-tender, Full ROM, Nml appearance. negative: Calf tenderness Neurologic/Psychiatric: positive: Oriented x3, Motor nml, Sensation nml, Mood/affect nml. negative: Weakness, Sensory loss, Facial droop, Slurred/abnml speech, Depressed mood/affect - LABS Result Diagrams: 02/09/21 05:50 02/09/21 05:50 - SEPSIS Possible source of Sepsis: Skin/soft tissue - FOLLOW UP Follow Up: Antibiotics Augmentin is prescribed for you to finish the treatment course, you may keep hygiene for your lower extremity. Resume your home medication as the schedule. You may followup with your PCP in one to two weeks. Should your symptoms return or worsen, you may present ER or call 911 for help. - TIME SPENT Time Spent in Discharge (Minutes): 30
== END 2021-02-09 11:05 | disposition home or self-care (01) | DRG 872 ==
LOC: ED 12:00 → MS3 14:46
PROVIDERS: ADMIT Nurse Practitioner Gerontology; ATTEND Nurse Practitioner Gerontology
DX: A41.9 Sepsis, unspecified organism (principal); L03.115 Cellulitis of right lower limb; C85.95 Non-Hodgkin lymphoma, unspecified, lymph nodes of inguinal region and lower limb; E86.0 Dehydration; I48.91 Unspecified atrial fibrillation; I44.7 Left bundle-branch block, unspecified; I10 Essential (primary) hypertension; G47.30 Sleep apnea, unspecified; Z20.822 Contact with and (suspected) exposure to COVID-19; I73.9 Peripheral vascular disease, unspecified; Z96.659 Presence of unspecified artificial knee joint; Z79.82 Long term (current) use of aspirin; Z79.02 Long term (current) use of antithrombotics/antiplatelets; Z79.899 Other long term (current) drug therapy; Z95.828 Presence of other vascular implants and grafts; Z87.891 Personal history of nicotine dependence
CPT/HCPCS: 36415; 71045; 80048; 80053; 81001; 83605; 85025; 86140; 87040; 87493; 87631; 87640; 93005; 93971; 96374; 99284; 99285; A9270; J3370; 0202U; 87086

== ENCOUNTER 2021-07-17 07:40 | Emergency (ER) | payer MEDICARE ==
--- NOTE | 2021-07-17 08:08 | ED Physician Documentation ---
PD HPI ALTERED MENTAL STATUS - Stated complaint Stated Complaint: CONFUSION - Chief complaint Chief Complaint: Neuro - History obtained from History obtained from: Patient - History of Present Illness Timing - onset: Last night (he awoke during the night and felt confused about what he was doing. says he was able to talk clearly, content was okay, no ataxia, no focal weakness. But he just did not know where he was wanting to go and felt some lightheaded. This continued this morning getting up again.) Timing - details: Abrupt onset, Still present (though feeling more focused on events and what he is doing. He can remember the events of the evening and yesterday, so is not amnestic.) Quality / character: Confused. No: Less responsive, Disoriented Associated symptoms: Other (felt lightheaded). No: Fever, Headache, Dyspnea, Cough, NVD Contributing factors: No: Recent med change, Recent illness, Intoxicated Basline status: Alert and oriented X 3, Ambulatory, Other (his says his BP will sometimes be low at 90-100 in the morning and he will skip his AM meds. He did not take meds this AM due to coming to ER.) Similar symptoms before: Has not had sx before Recently seen: Not recently seen Review of Systems Constitutional: denies: Fever, Chills Nose: denies: Rhinorrhea / runny nose, Congestion Throat: denies: Sore throat Cardiac: reports: Palpitations (feeling heart irregular at times with chronic atrial fib the past 6 months or so (had been ablated but the afib returned and persisted about 6 months ago).). denies: Chest pain / pressure, Pedal edema Respiratory: denies: Cough GI: denies: Abdominal Pain, Nausea, Vomiting Musculoskeletal: denies: Neck pain, Back pain Neurologic: denies: Focal weakness, Numbness, Near syncope, Headache PD PAST MEDICAL HISTORY - Past Medical History Cardiovascular: Hypertension, Atrial fibrillation, Other Respiratory: Sleep apnea, CPAP use Neuro: None Endocrine/Autoimmune: None GI: Colon polyps : None HEENT: None Psych: None Musculoskeletal: None Derm: None - Past Surgical History Past Surgical History: Yes General: Appendectomy Ortho: Knee replacement, Arthroscopic surgery Cardiovascular: Other HEENT: Tonsil/Adenoidectomy - Present Medications Home Medications: Ambulatory Orders Medication Instructions Recorded Confirmed Chlorthalidone 50 mg PO DAILY 05/18/19 02/06/21 Dabigatran Etexilate Mesylate 150 mg PO BID 05/18/19 02/08/21 [Pradaxa] Simvastatin 40 mg PO DAILY PM 05/18/19 02/06/21 lisinopriL [Lisinopril] 20 mg PO DAILY 05/18/19 02/06/21 Ferrous Gluconate [Iron] 65 mg PO DAILY 06/17/19 02/06/21 Metoprolol Succinate [Toprol Xl] 100 mg PO DAILY 06/17/19 02/06/21 Aspirin 81 mg PO DAILY 07/09/19 02/06/21 Multivitamin [Multivitamins] 1 cap PO DAILY 07/09/19 02/06/21 Cholecalciferol (Vitamin D3) 25 mcg PO DAILY 02/06/21 02/06/21 [Vitamin D3] Cyanocobalamin (Vitamin B-12) 1,000 mcg PO DAILY 02/06/21 02/06/21 [Vitamin B-12] Amox/Clav 875/125 [Augmentin 1 tablet PO Q12H 5 Days #10 tablet 02/09/21 875/125 Tab] Saccharomyces Boulardii [Florastor] 500 mg PO BIDWM 5 Days #20 cap 02/09/21 - Allergies Allergies/Adverse Reactions: Allergies Allergy/AdvReac Type Severity Reaction Status Date / Time No Known Drug Allergies Allergy Verified 07/17/21 08:02 - Social History Does the pt smoke?: No Smoking Status: Former smoker Does the pt drink ETOH?: Yes Does the pt have substance abuse?: No - Immunizations Immunizations: TDAP >10years/unknown, Other immun not current - POLST Patient has POLST: No PD ED PE NORMAL - Vitals Vital signs reviewed: Yes (BP low) - General General: Alert and oriented X 3, No acute distress (BP relatively low, with down to 80s systolic. and Heart rate wavering up to 130s atrial fib with BBB. ), Well developed/nourished - HEENT HEENT: Atraumatic - Neck Neck: Supple, no meningeal sign, No adenopathy - Cardiac Cardiac: No murmur. No: RRR (irregular and wavering rate to rapid.) - Respiratory Respiratory: No respiratory distress, Clear bilaterally - Abdomen Abdomen: Soft, Non tender - Derm Derm: Warm and dry. No: Normal color (mild pallor) - Extremities Extremities: Normal ROM s pain, No edema, No calf tenderness / cord NIHSS - Level of Consciousness Level of consciousness: (0) Alert, Keenly responsive LOC Questions: (0) Answers both Q's correct LOC Commands: (0) Performs both correctly - Gaze Best Gaze: (0) Normal - Visual Visual: (0) No loss - Facial Palsy Facial Palsy: (0) Normal, symmetrical movement - Motor Arms (both separate) Motor Arm (right): (0) No drift Motor Arm (left): (0) No drift - Motor Legs (both separate) Motor Leg (right): (0) No drift Motor Leg (left): (0) No drift - Limb Ataxia Limb Ataxia: (0) Absent - Sensory Sensory: (0) Normal - Best Language Best Language: (0) No aphasia - Dysarthria Dysarthria: (0) Normal - Extinction and Inattention (formally neg Extinction and inattention: (0) No abnormality - Total Score/Results Total Score/Result: 0 Results - Vitals Vitals: Vital Signs - 24 hr 07/17/21 07/17/21 07/17/21 07:55 08:42 13:20 Temperature 36.8 C 36.5 C Heart Rate 83 134 H 106 H Respiratory 15 22 18 Rate Blood Pressure 100/69 81/55 L 99/72 O2 Saturation 98 95 98 Oxygen O2 Source Room air - EKG (time done) in ER Rhythm: Atrial fibrillation Intervals: LBBB Ischemia: Normal ST segments, Non specific changes. No: ST elevation c/w ischemia Compare to prior EKG: Unchanged from prior EKG (02/06/21) - Labs Labs: Laboratory Tests 07/17/21 07/17/21 07/17/21 08:46 08:48 08:48 WBC 9.9 RBC 4.25 L Hgb 12.8 L Hct 38.1 L MCV 89.6 MCH 30.1 MCHC 33.6 RDW 13.2 Plt Count 121 L MPV 10.4 Neut # (Auto) Not Reportable Lymph # (Auto) Not Reportable King # (Auto) Not Reportable Eos # (Auto) Not Reportable Baso # (Auto) Not Reportable Absolute Nucleated RBC Not Reportable Total Counted 100 Band Neuts % (Manual) 17 H Reactive Lymphs % (Man) 5 Abnorm Lymph % (Manual) 0 Nucleated RBC % Not Reportable Neutrophils # (Manual) 9.0 H Lymphocytes # (Manual) 0.6 L Monocytes # (Manual) 0.3 Eosinophils # (Manual) 0.0 Basophils # (Manual) 0.0 Differential Comment MANUAL DIFFERENTIAL Platelet Estimate NORMAL (130-450,000) Platelet Morphology NORMAL APPEARANCE RBC Morph Micro Appear NORMAL APPEARANCE PT INR APTT Sodium 137 Potassium 3.8 Chloride 100 L Carbon Dioxide 25 Anion Gap 12.0 BUN 24 H Creatinine 1.1 Estimated GFR (MDRD) 66 L Glucose 112 H POC Whole Bld Glucose 91 Lactic Acid Calcium 8.9 Magnesium 1.5 L Total Bilirubin 1.0 AST 19 ALT 13 Alkaline Phosphatase 40 L Troponin I High Sens B-Natriuretic Peptide Total Protein 5.8 L Albumin 3.7 Globulin 2.1 Albumin/Globulin Ratio 1.8 Lipase 21 L Urine Color Urine Clarity Urine pH Ur Specific [place] Urine Protein Urine Glucose (UA) Urine Ketones Urine Occult Blood Urine Nitrite Urine Bilirubin Urine Urobilinogen Ur Leukocyte Esterase Ur Microscopic Review Urine Culture Comments Nasal Adenovirus (PCR) Nasal B. parapertussis DNA (PCR) Nasal Coronavir 229E PCR Nasal Coronavir HKU1 PCR Nasal Coronavir NL63 PCR Nasal Coronavir OC43 PCR Nasal Enterovir/Rhinovir PCR Nasal Influenza B PCR Nasal Influenza A PCR Nasal Parainfluen 1 PCR Nasal Parainfluen 2 PCR Nasal Parainfluen 3 PCR Nasal Parainfluen 4 PCR Nasal RSV (PCR) Nasal B.pertussis DNA PCR Nasal C.pneumoniae (PCR) Esteban Human Metapneumo PCR Nasal M.pneumoniae (PCR) Nasal SARS-CoV-2 (PCR) Ethyl Alcohol < 5.0 07/17/21 07/17/21 07/17/21 08:48 08:48 08:48 WBC RBC Hgb Hct MCV MCH MCHC RDW Plt Count MPV Neut # (Auto) Lymph # (Auto) King # (Auto) Eos # (Auto) Baso # (Auto) Absolute Nucleated RBC Total Counted Band Neuts % (Manual) Reactive Lymphs % (Man) Abnorm Lymph % (Manual) Nucleated RBC % Neutrophils # (Manual) Lymphocytes # (Manual) Monocytes # (Manual) Eosinophils # (Manual) Basophils # (Manual) Differential Comment Platelet Estimate Platelet Morphology RBC Morph Micro Appear PT 19.3 H INR 1.7 H APTT 37.0 H Sodium Potassium Chloride Carbon Dioxide Anion Gap BUN Creatinine Estimated GFR (MDRD) Glucose POC Whole Bld Glucose Lactic Acid 2.0 Calcium Magnesium Total Bilirubin AST ALT Alkaline Phosphatase Troponin I High Sens 45.6 H* B-Natriuretic Peptide Total Protein Albumin Globulin Albumin/Globulin Ratio Lipase Urine Color Urine Clarity Urine pH Ur Specific [place] Urine Protein Urine Glucose (UA) Urine Ketones Urine Occult Blood Urine Nitrite Urine Bilirubin Urine Urobilinogen Ur Leukocyte Esterase Ur Microscopic Review Urine Culture Comments Nasal Adenovirus (PCR) Nasal B. parapertussis DNA (PCR) Nasal Coronavir 229E PCR Nasal Coronavir HKU1 PCR Nasal Coronavir NL63 PCR Nasal Coronavir OC43 PCR Nasal Enterovir/Rhinovir PCR Nasal Influenza B PCR Nasal Influenza A PCR Nasal Parainfluen 1 PCR Nasal Parainfluen 2 PCR Nasal Parainfluen 3 PCR Nasal Parainfluen 4 PCR Nasal RSV (PCR) Nasal B.pertussis DNA PCR Nasal C.pneumoniae (PCR) Esteban Human Metapneumo PCR Nasal M.pneumoniae (PCR) Nasal SARS-CoV-2 (PCR) Ethyl Alcohol 07/17/21 07/17/21 07/17/21 08:48 10:36 11:55 WBC RBC Hgb Hct MCV MCH MCHC RDW Plt Count MPV Neut # (Auto) Lymph # (Auto) King # (Auto) Eos # (Auto) Baso # (Auto) Absolute Nucleated RBC Total Counted Band Neuts % (Manual) Reactive Lymphs % (Man) Abnorm Lymph % (Manual) Nucleated RBC % Neutrophils # (Manual) Lymphocytes # (Manual) Monocytes # (Manual) Eosinophils # (Manual) Basophils # (Manual) Differential Comment Platelet Estimate Platelet Morphology RBC Morph Micro Appear PT INR APTT Sodium Potassium Chloride Carbon Dioxide Anion Gap BUN Creatinine Estimated GFR (MDRD) Glucose POC Whole Bld Glucose Lactic Acid Calcium Magnesium Total Bilirubin AST ALT Alkaline Phosphatase Troponin I High Sens B-Natriuretic Peptide 740 H Total Protein Albumin Globulin Albumin/Globulin Ratio Lipase Urine Color YELLOW Urine Clarity CLEAR Urine pH 5.0 Ur Specific [place] 1.010 Urine Protein NEGATIVE Urine Glucose (UA) NEGATIVE Urine Ketones NEGATIVE Urine Occult Blood TRACE-INTA Urine Nitrite NEGATIVE Urine Bilirubin NEGATIVE Urine Urobilinogen 0.2 (NORMAL) Ur Leukocyte Esterase NEGATIVE Ur Microscopic Review NOT INDICATED Urine Culture Comments NOT INDICATED Nasal Adenovirus (PCR) NOT DETECTED Nasal B. parapertussis DNA (PCR) NOT DETECTED Nasal Coronavir 229E PCR NOT DETECTED Nasal Coronavir HKU1 PCR NOT DETECTED Nasal Coronavir NL63 PCR NOT DETECTED Nasal Coronavir OC43 PCR NOT DETECTED Nasal Enterovir/Rhinovir PCR NOT DETECTED Nasal Influenza B PCR NOT DETECTED Nasal Influenza A PCR NOT DETECTED Nasal Parainfluen 1 PCR NOT DETECTED Nasal Parainfluen 2 PCR NOT DETECTED Nasal Parainfluen 3 PCR NOT DETECTED Nasal Parainfluen 4 PCR NOT DETECTED Nasal RSV (PCR) NOT DETECTED Nasal B.pertussis DNA PCR NOT DETECTED Nasal C.pneumoniae (PCR) NOT DETECTED Esteban Human Metapneumo PCR NOT DETECTED Nasal M.pneumoniae (PCR) NOT DETECTED Nasal SARS-CoV-2 (PCR) NOT DETECTED Ethyl Alcohol - Rads (name of study) head CT angio Radiology: Prelim report reviewed (no acute process), See rad report chest xray Radiology: Prelim report reviewed (no acute process), See rad report PD MEDICAL DECISION MAKING - ED course Complexity details: reviewed results, considered differential (he had improved color and feels better with IV fluids and Metoprolol with better rate controlled atril fib even though BP still somewhat low 99/72 ), d/w patient Departure - Departure Disposition: 01 Home, Self Care Clinical Impression: Transient confusion, Rapid atrial fibrillation Hypotension Qualifiers: Hypotension type: unspecified hypotension type Qualified Code(s): I95.9 - Hypotension, unspecified Condition: Stable Record reviewed to determine appropriate education?: Yes Instructions: ED Afib Follow-Up: Renay Chandler MD [Primary Care Provider] - Comments: I believe your confusion this morning was related to decreased blood flow/perfusion to the brain because of low blood pressure and fast heart rate atrial fibrillation. You seem to be doing better now with your heart rate a bit slower. Your blood pressure still mildly low/borderline low so I would suggest holding any blood pressure medicines today aside from your metoprolol. Stay well-hydrated. Follow-up with your primary care if persistent problems or symptoms and return to the ER as needed. Discharge Date/Time: 07/17/21 13:21
[2021-07-17] MEDS ORDERED: SODIUM CHLORIDE 0.9% 1,000 ML IV STA ×2 (08:23→10:54)
[2021-07-17] MEDS ORDERED: IOVERSOL 320 100 ML VIAL IVP ONE ×2 (08:53→10:09)
[2021-07-17 09:01] LABS: BASOPHILS % (AUTO) 0.4 %; EOSINOPHILS % (AUTO) 0.3 %; HCT - HEMATOCRIT 38.1 % (42.0-52.0); HGB - HEMOGLOBIN 12.8 g/dL (14.0-18.0); LYMPHOCYTES % (AUTO) 0.5 %; MEAN CORPUSCULAR HEMOGLOBIN 30.1 pg (27.0-31.0); MEAN CORPUSCULAR HGB CONC 33.6 g/dL (32.0-36.0); MEAN CORPUSCULAR VOLUME 89.6 fL (80.0-94.0); MEAN PLATELET VOLUME 10.4 fL (7.4-11.4); MONOCYTES % (AUTO) 4.7 %; NEUTROPHILS % (AUTO) 93.2 %; PLT - PLATELET COUNT 121 10^3/uL (130-450); RED BLOOD COUNT 4.25 10^6/uL (4.70-6.10); RED CELL DISTRIBUTION WIDTH 13.2 % (12.0-15.0); WHITE BLOOD COUNT 9.9 x10^3/uL (4.8-10.8)
[2021-07-17 09:05] LABS: ABNORMAL LYMPHS % (MANUAL) 0 %
[2021-07-17 09:16] LABS: INR 1.7 (0.8-1.2); PT - PROTHROMBIN TIME 19.3 secs (9.9-12.6)
[2021-07-17 09:17] LABS: ALBUMIN 3.7 g/dL (3.2-5.5); ALBUMIN/GLOBULIN RATIO 1.8 (1.0-2.2); ALKALINE PHOSPHATASE 40 IU/L (42-121); ALT ALANINE AMINOTRANSFERASE 13 IU/L (10-60); AST ASPARTATE AMINOTRANSFERASE 19 IU/L (10-42); BUN - BLOOD UREA NITROGEN 24 mg/dL (6-20); CALCIUM 8.9 mg/dL (8.5-10.3); CARBON DIOXIDE - CO2 25 mmol/L (21-32); CHLORIDE 100 mmol/L (101-111); CREATININE 1.1 mg/dL (0.6-1.2); ETOH - ETHANOL < 5.0 mg/dL; GFR - MDRD 66 (>89); GLUCOSE 112 mg/dL (70-100); LIPASE 21 U/L (22-51); MAGNESIUM 1.5 mg/dL (1.7-2.8); POTASSIUM 3.8 mmol/L (3.5-5.0); SODIUM 137 mmol/L (135-145); TOTAL PROTEIN 5.8 g/dL (6.7-8.2)
[2021-07-17] MEDS ORDERED: METOPROLOL 5 MG/5 ML VIAL IVP STA (09:18)
--- NOTE | 2021-07-17 09:22 | XRAY Report ---
PROCEDURE: Chest 1 View X-Ray INDICATIONS: chest pain TECHNIQUE: One view of the chest was acquired. COMPARISON: 02/04/2021 FINDINGS: Surgical changes and devices: There is a left subclavian Port-A-Cath redemonstrated with the tip at t he cavoatrial junction. Lungs and pleura: Lungs are clear without acute consolidation. No pleural effusions or pneumothorax. Mediastinum: Mediastinal contours appear unchanged. Heart size is enlarged. Bones and chest wall: No suspicious bony lesions. Overlying soft tissues appear unremarkable. IMPRESSION: 1. No acute cardiopulmonary disease. Reviewed by: Silvio Rodriguez MD on 07/17/2021 9:20 AM [facility] Approved by: Silvio Rodriguez MD on 07/17/2021 9:20 AM [facility] Station ID: [id number]
[2021-07-17 09:42] LABS: BAND NEUTROPHILS % (MANUAL) 17 %; DIFFERENTIAL COMMENT MANUAL DIFFERENTIAL; LYMPHOCYTES # (MANUAL) 0.6 10^3/uL (1.5-3.5); LYMPHOCYTES % (MANUAL) 1 %; MONOCYTES # (MANUAL) 0.3 10^3/uL (0.0-1.0); PLATELET ESTIMATE, MANUAL NORMAL (130-450,000) (NORMAL); PLATELET MORPHOLOGY NORMAL APPEARANCE (NORMAL); RBC MORPHOLOGY (MULTIPLE) NORMAL APPEARANCE (NORMAL); REACTIVE LYMPHS % (MANUAL) 5 %
--- NOTE | 2021-07-17 09:59 | CT Report ---
PROCEDURE: ANGIO HEAD W/WO INDICATIONS: feeling confused since last night CONTRAST: IV CONTRAST: Optiray 320 ml: 80 PO CONTRAST: *NO PO CONTRAST TECHNIQUE: Precontrast 4.5 mm thick angled axial sections acquired from the foramen magnum to the vertex. Afte r the administration of intravenous contrast, 1 mm thick sections acquired through the [place] of [place] is. Postcontrast 4.5 mm thick sections then re-acquired from the foramen magnum to the vertex. 3-di mensional wtaofvz-wkrpleakn-dkchbqjosd (MIP) and/or volume rendering reformats were acquired of the c entral intracranial vasculature. For radiation dose reduction, the following was used: automated ex posure control, adjustment of mA and/or kV according to patient size. COMPARISON: None. FINDINGS: Image quality: Excellent. Anterior circulation: Intracranial internal carotid arteries are normal in size and flow. The flow within the paired anterior cerebral arteries is normal and symmetric. The flow within the middle cer ebral arteries is normal and symmetric. The anterior communicating artery is seen. No aneurysms are seen. Posterior circulation: Visualized portions of the vertebral arteries demonstrate normal caliber, and join to form a normal appearing basilar artery. Flow within the posterior cerebral arteries is norm al and symmetric. No aneurysms are seen. CSF spaces: Ventricles are normal in size and shape. Basal cisterns are patent. No extra-axial flu id collections. Brain: No midline shift. No intracranial bleeds or masses. Brown-white matter interface appears int act. Skull and face: Calvarium and facial bones appear intact, without suspicious lesions. Sinuses: Visualized sinuses and mastoids are clear except for a tiny right maxillary mucous retentio n cyst or polyp. IMPRESSION: No intracranial occlusion or stenosis. No acute intracranial process. Reviewed by: Srinivasa Bowers MD on 07/17/2021 9:58 AM [facility] Approved by: Srinivasa Bowers MD on 07/17/2021 9:58 AM PST Station ID: [id number]
[2021-07-17] MEDS ORDERED: MAGNESIUM SULFATE 2 GRAM 2 GM/50 ML BAG IV ONE (10:55)
[2021-07-17 11:38] LABS: B. PARAPERTUSSIS- RESP PCR PAN NOT DETECTED; B. PERTUSSIS- RESP PCR PANEL NOT DETECTED; C. PNEUMONIAE- RESP PCR PANEL NOT DETECTED; CORONAVIRUS 229E-RESP PCR NOT DETECTED; CORONAVIRUS HKU1-RESP PCR NOT DETECTED; CORONAVIRUS NL63-RESP PCR NOT DETECTED; CORONAVIRUS OC43-RESP PCR NOT DETECTED; HUMAN METAPNEUMOVIRUS NOT DETECTED; INFLUENZA A- RESP PCR PANEL NOT DETECTED; INFLUENZA B - RESP PCR PANEL NOT DETECTED; M. PNEUMONIAE- RESP PCR PANEL NOT DETECTED; PARAINFLUENZA VIRUS 1 NOT DETECTED; PARAINFLUENZA VIRUS 2 NOT DETECTED; PARAINFLUENZA VIRUS 3 NOT DETECTED; PARAINFLUENZA VIRUS 4 NOT DETECTED; RHINOVIRUS/ENTEROVIRUS NOT DETECTED; RSV- RESP PCR PANEL NOT DETECTED; SARS-CoV-2 -RESP PCR PANEL NOT DETECTED
[2021-07-17 12:25] LABS: BILIRUBIN,URINE NEGATIVE (NEGATIVE); GLUCOSE, URINE (UA) NEGATIVE (NEGATIVE); KETONES,URINE (UA) NEGATIVE (NEGATIVE); LEUKOCYTE ESTERASE, URINE NEGATIVE (NEGATIVE); NITRITE,URINE NEGATIVE (NEGATIVE); OCCULT BLOOD,URINE TRACE-INTA (NEGATIVE); PROTEIN,URINE NEGATIVE (NEGATIVE); UROBILINOGEN,URINE 0.2 (NORMAL) E.U./dL (NORMAL)
[2021-07-17 12:30] LABS: CLARITY,URINE CLEAR (CLEAR)
[2021-07-17 13:21] VITALS: BP 99/72
== END 2021-07-17 13:21 | disposition home or self-care (01) ==
LOC: ED 07:40
DX: I95.9 Hypotension, unspecified (principal); I48.20 Chronic atrial fibrillation, unspecified; R41.0 Disorientation, unspecified; Z87.891 Personal history of nicotine dependence
CPT/HCPCS: 36415; 70496; 71045; 80053; 81003; 83605; 83690; 83735; 83880; 84484; 85025; 85610; 85730; 87631; 93005; 96374; 96375; 99284; G0480; Q9967; 0202U; 80320; 81001; 87086

== ENCOUNTER 2021-07-22 14:41 | Emergency (ER) | payer MEDICARE ==
[2021-07-22 16:08] LABS: BASOPHILS % (AUTO) 0.3 %; EOSINOPHILS # (AUTO) 0.1 10^3/uL (0.0-0.7); EOSINOPHILS % (AUTO) 0.9 %; HGB - HEMOGLOBIN 11.6 g/dL (14.0-18.0); LYMPHOCYTES # (AUTO) 0.3 10^3/uL (1.5-3.5); LYMPHOCYTES % (AUTO) 4.7 %; MEAN CORPUSCULAR HEMOGLOBIN 30.4 pg (27.0-31.0); MEAN CORPUSCULAR HGB CONC 34.1 g/dL (32.0-36.0); MEAN CORPUSCULAR VOLUME 89.2 fL (80.0-94.0); MEAN PLATELET VOLUME 11.6 fL (7.4-11.4); MONOCYTES # (AUTO) 0.9 10^3/uL (0.0-1.0); MONOCYTES % (AUTO) 14.4 %; NEUTROPHILS # (AUTO) 5.2 10^3/uL (1.5-6.6); NEUTROPHILS % (AUTO) 78.9 %; PLT - PLATELET COUNT 122 10^3/uL (130-450); RED BLOOD COUNT 3.81 10^6/uL (4.70-6.10); RED CELL DISTRIBUTION WIDTH 13.7 % (12.0-15.0); WHITE BLOOD COUNT 6.5 x10^3/uL (4.8-10.8)
[2021-07-22 16:18] LABS: ALBUMIN 3.3 g/dL (3.2-5.5); BILIRUBIN,TOTAL 0.6 mg/dL (0.2-1.0); CALCIUM 8.4 mg/dL (8.5-10.3); CREATININE 0.8 mg/dL (0.6-1.2); POTASSIUM 2.9 mmol/L (3.5-5.0); TOTAL PROTEIN 6.5 g/dL (6.7-8.2)
--- NOTE | 2021-07-22 16:21 | ED Physician Documentation ---
History of Present Illness - Stated complaint Stated Complaint: LEG WEAKNESS/SWELLING - Chief complaint Chief Complaint: Ext Problem - Additonal information Additional information: 71-year-old male was brought to the emergency department for concern of increased redness and swelling in both of his legs. This gentleman has a history of atrial fibrillation. Was seen here with an altered mental status and high heart rate on 17 July. He was ultimately discharged from the emergency department. In follow-up with his primary care doctor on 19 July he was thought to have a cellulitis of both his lower extremities. He was started on Keflex and Bactrim. He states that shortly after beginning the Bactrim he had increased left leg swelling and redness. He is concerned he could have had a drug reaction therefore he stopped taking the Bactrim but is still taking the Keflex 4 times a day. He has had no fevers. No oral lesions or sores. No cough. 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 No arterial grafting in the left leg. Review of Systems Constitutional: denies: Fever, Chills Eyes: reports: Reviewed and negative Nose: reports: Reviewed and negative Throat: reports: Reviewed and negative Cardiac: reports: Pedal edema, Calf pain Respiratory: reports: Reviewed and negative GI: reports: Reviewed and negative : reports: Reviewed and negative Skin: reports: Lesions Musculoskeletal: reports: Reviewed and negative PD PAST MEDICAL HISTORY - Past Medical History Cardiovascular: Hypertension, Atrial fibrillation, Other Respiratory: Sleep apnea, CPAP use Neuro: None Endocrine/Autoimmune: None GI: Colon polyps : None HEENT: None Psych: None Musculoskeletal: None Derm: None - Past Surgical History Past Surgical History: Yes General: Appendectomy Ortho: Knee replacement, Arthroscopic surgery Cardiovascular: Other HEENT: Tonsil/Adenoidectomy - Present Medications Home Medications: Ambulatory Orders Medication Instructions Recorded Confirmed Chlorthalidone 50 mg PO DAILY 05/18/19 07/22/21 Dabigatran Etexilate Mesylate 150 mg PO BID 05/18/19 07/22/21 [Pradaxa] Simvastatin 40 mg PO DAILY PM 05/18/19 07/22/21 lisinopriL [Lisinopril] 20 mg PO DAILY 05/18/19 07/22/21 Ferrous Gluconate [Iron] 65 mg PO DAILY 06/17/19 07/22/21 Metoprolol Succinate [Toprol Xl] 100 mg PO DAILY 06/17/19 07/22/21 Aspirin 81 mg PO DAILY 07/09/19 07/22/21 Multivitamin [Multivitamins] 1 cap PO DAILY 07/09/19 07/22/21 Cholecalciferol (Vitamin D3) 25 mcg PO DAILY 02/06/21 07/22/21 [Vitamin D3] Cyanocobalamin (Vitamin B-12) 1,000 mcg PO DAILY 02/06/21 07/22/21 [Vitamin B-12] Sulfamethox/Trimeth 800/160 1 tablet PO BID 07/22/21 07/22/21 [Bactrim Ds] cephALEXin [Keflex] 500 mg PO Q6H 07/22/21 07/22/21 - Allergies Allergies/Adverse Reactions: Allergies Allergy/AdvReac Type Severity Reaction Status Date / Time No Known Drug Allergies Allergy Verified 07/17/21 08:02 - Social History Does the pt smoke?: No Smoking Status: Former smoker Does the pt drink ETOH?: Yes Does the pt have substance abuse?: No - Immunizations Immunizations: TDAP >10years/unknown, Other immun not current - POLST Patient has POLST: No PD ED PE EXPANDED - General General: Alert, No acute distress, Well developed/nourished - Cardiac Cardiac: Regular Rate, Radial strong equal, Pedal strong equal, Cap refill < 2 sec, Other (Bilateral lower extremity edema and swelling to mid calf with tenderness. Left greater than right swelling. Significant erythema and mild induration in the left lower leg.) - Respiratory Respiratory: Clear to ausultation gianluca. No: Distress, Labored - Abdomen Abdomen: Normal Bowel sounds. No: Tender to palpation - Extremities Extremities: Pedal edema bilateral, Right calf TTP/cord, Left calf TTP/cord, Pedal Pulses Present, Other (Left lower extremity with circumferential deep red erythema and pitting edema. It is nonblanchable. The right leg with circumferential erythema and reduced edema however this rash is blanchable.). No: Deformity, Tenderness - Neuro Neuro: Alert and Oriented X 3, CNII-XII intact - GCS Eye Opening: Spontaneous Motor: Obeys Commands Verbal: Oriented Total: 15 Results - Vitals Vitals: Vital Signs - 24 hr 12/05/21 12/05/21 12/05/21 14:55 15:38 17:01 Temperature 36.9 C 36.9 C Heart Rate 78 78 90 Respiratory 20 20 16 Rate Blood Pressure 110/57 L 110/57 L 106/68 O2 Saturation 98 98 99 Oxygen O2 Source Room air - Labs Labs: Laboratory Tests 07/22/21 07/22/21 07/22/21 16:00 16:00 16:00 WBC 6.5 RBC 3.81 L Hgb 11.6 L Hct 34.0 L MCV 89.2 MCH 30.4 MCHC 34.1 RDW 13.7 Plt Count 122 L MPV 11.6 H Neut # (Auto) 5.2 Lymph # (Auto) 0.3 L [place] # (Auto) 0.9 Eos # (Auto) 0.1 Baso # (Auto) 0.0 Absolute Nucleated RBC 0.00 Nucleated RBC % 0.0 Sodium 131 L Potassium 2.9 L Chloride 93 L Carbon Dioxide 26 Anion Gap 12.0 BUN 20 Creatinine 0.8 Estimated GFR (MDRD) 95 Glucose 98 Calcium 8.4 L Total Bilirubin 0.6 AST 81 H ALT 79 H Alkaline Phosphatase 83 C-React Prot High Sens B-Natriuretic Peptide 231 H Total Protein 6.5 L Albumin 3.3 Globulin 3.2 Albumin/Globulin Ratio 1.0 Lipase 40 07/22/21 16:00 WBC RBC Hgb Hct MCV MCH MCHC RDW Plt Count MPV Neut # (Auto) Lymph # (Auto) [place] # (Auto) Eos # (Auto) Baso # (Auto) Absolute Nucleated RBC Nucleated RBC % Sodium Potassium Chloride Carbon Dioxide Anion Gap BUN Creatinine Estimated GFR (MDRD) Glucose Calcium Total Bilirubin AST ALT Alkaline Phosphatase C-React Prot High Sens 170.5 B-Natriuretic Peptide Total Protein Albumin Globulin Albumin/Globulin Ratio Lipase - Rads (name of study) US DVT Radiology: Final report received (No deep vein thrombosis seen in either extremity. Limited study) PD MEDICAL DECISION MAKING - ED course Complexity details: reviewed results, re-evaluated patient, d/w patient ED course: 71-year-old male who has a history of peripheral vascular disease atrial fibrillation and reported history of chronic cellulitis in both his extremities comes to the ER with increased pain erythema and swelling of his lower extremities. He was started on Keflex and Bactrim on 19 June for concerns of recurrent cellulitis. Despite starting these antibiotics he feels that he is having increased swelling and redness especially of the left leg. He has not had any fevers. He is concerned that he could have an allergy to Bactrim so he stopped taking it after 2 or 3 doses but remains on the Keflex. Today he appears remarkably well. His vital signs are without worrisome abnormalities. No fever. Screening labs show no leukocytosis. An ultrasound of the lower extremities did not show acute deep vein thrombosis. He remains anticoagulated on Pradaxa. The erythema of the lower extremities is more consistent with peripheral vascular disease and/or vasculitis than a drug reaction. The left leg erythema is nonblanchable but the right leg remains blanchable. Patient reports that he has a difficult time elevating his legs at night and he used to wear compression stockings but stopped due to frustration. I am encouraging him to return to the use of compression stockings during the day and elevation of the legs at night. He should continue his diuretics. If at any point he has worsening swelling, redness red streaking or fevers he will return to the ER for a second evaluation. Departure - Departure Disposition: 01 Home, Self Care Clinical Impression: Swelling of lower extremity Condition: Stable Record reviewed to determine appropriate education?: Yes Comments: Dale diaz were seen in the ED today for concerns of increased redness and swelling in your lower legs, especially your left one. You were told that he had cellulitis and were instructed to begin taking Keflex and Bactrim. Despite this she had increased redness and swelling. You are concerned that you could be having a drug reaction to the Bactrim. Today your screening labs are essentially normal. You do not have an elevated white blood cell count which is very important. The ultrasound of your legs did not show any deep vein thrombosis or blood clot. I suspect that the cause of the increased redness and swelling is worsening peripheral vascular disease. It is very critical that you elevate your legs as much as you can at night to help reduce the edema. It is also important that you begin to wear compression stockings. It is okay for you to finish the course of Keflex that you are taking. Stop the Bactrim if you are having any concerns of drug rash. Please continue close follow-up with your primary care provider. Return to the emergency department if you develop fevers, have worsening swelling or redness despite elevation, compression and completing this course of antibiotics. Return to the emergency department for any chest pain or shortness of air
[2021-07-22 18:36] VITALS: BP 118/76
--- NOTE | 2021-07-22 18:46 | Ultrasound Report ---
PROCEDURE: Duplex Ext Veins Bilateral INDICATIONS: Sandie Simmons TECHNIQUE: Real-time imaging, as well as color and pulse Doppler interrogation, were performed of the deep veins of both legs from the inguinal ligament to the popliteal fossa. COMPARISON: None FINDINGS: The deep veins are normally compressible, and free of intraluminal thrombus. Color and pu lse Doppler demonstrate normal phasic intravascular flow. There is normal augmentation response to d istal compression maneuver. There are prominent lymph nodes in the bilateral groins. The largest right-sided lymph node measures 7.1 x 1.8 x 3.1 cm. The largest left-sided lymph node measures 2.6 x 5.4 x 1.3 cm. IMPRESSION: 1. No evidence of DVT, bilateral lower extremities. 2. Prominent bilateral inguinal lymph nodes in a patient with history of lymphoma. Reviewed by: Sherman Navarro MD on 07/22/2021 6:44 PM PST Approved by: Sherman Navarro MD on 07/22/2021 6:44 PM PST Station ID: [id number]
== END 2021-07-22 18:35 | disposition home or self-care (01) ==
LOC: ED 14:41
DX: I73.9 Peripheral vascular disease, unspecified (principal); R60.0 Localized edema; L03.116 Cellulitis of left lower limb; L03.115 Cellulitis of right lower limb; I48.91 Unspecified atrial fibrillation; Z79.01 Long term (current) use of anticoagulants; Z79.82 Long term (current) use of aspirin; I10 Essential (primary) hypertension; Z87.891 Personal history of nicotine dependence
CPT/HCPCS: 36415; 80053; 83690; 83880; 85025; 86141; 93970; 99282; 99284

== ENCOUNTER 2021-08-31 11:06 | Outpatient (CLI) | payer MEDICARE ==
[2021-08-31 11:35] LABS: BASOPHILS % (AUTO) 0.6 %; EOSINOPHILS # (AUTO) 0.1 10^3/uL (0.0-0.7); EOSINOPHILS % (AUTO) 2.9 %; HCT - HEMATOCRIT 37.5 % (42.0-52.0); HGB - HEMOGLOBIN 12.5 g/dL (14.0-18.0); LYMPHOCYTES # (AUTO) 0.5 10^3/uL (1.5-3.5); LYMPHOCYTES % (AUTO) 10.9 %; MEAN CORPUSCULAR HEMOGLOBIN 30.4 pg (27.0-31.0); MEAN CORPUSCULAR HGB CONC 33.3 g/dL (32.0-36.0); MEAN CORPUSCULAR VOLUME 91.2 fL (80.0-94.0); MEAN PLATELET VOLUME 9.9 fL (7.4-11.4); MONOCYTES # (AUTO) 0.8 10^3/uL (0.0-1.0); NEUTROPHILS # (AUTO) 3.4 10^3/uL (1.5-6.6); NEUTROPHILS % (AUTO) 69.4 %; PLT - PLATELET COUNT 174 10^3/uL (130-450); RED BLOOD COUNT 4.11 10^6/uL (4.70-6.10); RED CELL DISTRIBUTION WIDTH 16.5 % (12.0-15.0); WHITE BLOOD COUNT 4.9 x10^3/uL (4.8-10.8)
[2021-08-31 12:07] LABS: ALBUMIN/GLOBULIN RATIO 1.4 (1.0-2.2); BILIRUBIN,TOTAL 0.6 mg/dL (0.2-1.0); CALCIUM 8.9 mg/dL (8.5-10.3); CREATININE 0.7 mg/dL (0.6-1.2); POTASSIUM 3.9 mmol/L (3.5-5.0); TOTAL PROTEIN 6.9 g/dL (6.7-8.2)
== END 2021-08-31 11:07 | disposition home or self-care (01) ==
LOC: LAB 11:06
PROVIDERS: ATTEND Internal Medicine
DX: C83.16 Mantle cell lymphoma, intrapelvic lymph nodes (principal)
CPT/HCPCS: 36415; 80053; 81599; 83615; 85025

== ENCOUNTER 2021-09-07 11:44 | Outpatient (CLI) | payer MEDICARE ==
--- NOTE | 2021-09-07 14:36 | XRAY Report ---
PROCEDURE: Hips 2V BILAT INDICATIONS: BILAT HIP PAIN TECHNIQUE: 2 views of each hip were acquired. COMPARISON: 10/27/2019 FINDINGS: Bones: No acute fractures or dislocations. There is been significant progression of joint space los s in the right femoral acetabular joint with new femoral head flattening, subcortical cystic changes and progressive subcortical sclerosis. There has also been progression of now moderate left femoral a cetabular joint space loss without other significant morphologic changes. Sacroiliac joints and pubic symphysis are stable. No suspicious bony lesions. The visualized pelvic ring appears intact. Soft tissues: No suspicious soft tissue calcifications or masses. Extremely heavy calcification of mentasta bilateral femoral arteries. Surgical clips in the right inguinal region suggesting prior surge ry. IMPRESSION: 1. Progression of bilateral hip osteoarthritis with now severe changes in the right and moderate swenson ges in the left. 2. Severe peripheral artery calcification. Reviewed by: Dorina Peoples MD on 09/07/2021 2:34 PM PST Approved by: Dorina Peoples MD on 09/07/2021 2:34 PM PST Station ID: [id number]
== END 2021-09-07 11:45 | disposition home or self-care (01) ==
LOC: DI 11:44
PROVIDERS: ATTEND Internal Medicine
DX: M16.0 Bilateral primary osteoarthritis of hip (principal); I70.203 Unspecified atherosclerosis of native arteries of extremities, bilateral legs

== ENCOUNTER 2021-10-30 08:02 | Outpatient (CLI) | payer MEDICARE ==
[2021-10-30 08:49] LABS: ALBUMIN 4.2 g/dL (3.2-5.5); ALKALINE PHOSPHATASE 52 IU/L (42-121); ALT ALANINE AMINOTRANSFERASE 17 IU/L (10-60); AST ASPARTATE AMINOTRANSFERASE 17 IU/L (10-42); BILIRUBIN,DIRECT 0.1 mg/dL (0.1-0.5); BILIRUBIN,TOTAL 0.7 mg/dL (0.2-1.0); CHOLESTEROL 119 mg/dL; HDL CHOLESTEROL 40 mg/dL; LDL CHOLESTEROL,CALCULATED 67 mg/dL; LDL/HDL RATIO 1.7 (<3.6); TOTAL PROTEIN 6.6 g/dL (6.7-8.2); TRIGLYCERIDES 60 mg/dL; VLDL CHOLESTEROL 12 mg/dL
== END 2021-10-30 08:03 | disposition home or self-care (01) ==
LOC: LAB 08:02
PROVIDERS: ATTEND Internal Medicine Cardiovascular Disease
DX: I48.19 Other persistent atrial fibrillation (principal); I73.9 Peripheral vascular disease, unspecified
CPT/HCPCS: 36415; 80061; 80076; 83721

== ENCOUNTER 2022-03-06 08:37 | Emergency (ER) | payer MEDICARE ==
--- NOTE | 2022-03-06 08:50 | ED Physician Documentation ---
History of Present Illness - Stated complaint Stated Complaint: SWELLING RT LEG - History obtained from History obtained from: Patient, Family - History of Present Illness Timing: How many days ago (5) - Additonal information Additional information: 71-year-old male with history of A. fib on Pradaxa, 1 week status post right hip surgery presents for approximately 5 to 6 days of right lower extremity swelling, worse after physical therapy yesterday. Patient states that prior to his surgery he was off his Pradaxa, however immediately after the procedure he was placed back on his usual dose of Pradaxa. He states that his leg has been swollen ever since the procedure, however after undergoing physical therapy it feels like it is worse. Patient also is concerned because he has a history of arterial bypass surgery on the right side and is concerned that he might have underlying clot. Patient denies numbness, weakness, tingling. Reports pain with ambulation, which he states is normal for him after his surgery, denies any other complaints. Review of Systems Ten Systems: 10 systems reviewed and negative Constitutional: denies: Fever, Chills Cardiac: denies: Chest pain / pressure, Palpitations Respiratory: denies: Dyspnea, Cough GI: denies: Abdominal Pain, Abdominal Swelling Skin: reports: Other (swelling, RLE) Neurologic: denies: Generalized weakness, Focal weakness PD PAST MEDICAL HISTORY - Past Medical History Cardiovascular: Hypertension, Atrial fibrillation, Other Respiratory: Sleep apnea, CPAP use Neuro: None Endocrine/Autoimmune: None GI: Colon polyps : None HEENT: None Psych: None Musculoskeletal: None Derm: None - Past Surgical History Past Surgical History: Yes General: Appendectomy Ortho: Knee replacement, Arthroscopic surgery Cardiovascular: Other HEENT: Tonsil/Adenoidectomy - Present Medications Home Medications: Ambulatory Orders Medication Instructions Recorded Confirmed Chlorthalidone 50 mg PO DAILY 05/18/19 10/11/21 Dabigatran Etexilate Mesylate 150 mg PO BID 05/18/19 10/11/21 [Pradaxa] Simvastatin 40 mg PO DAILY PM 05/18/19 10/11/21 lisinopriL [Lisinopril] 5 mg PO DAILY 05/18/19 10/11/21 Ferrous Gluconate [Iron] 65 mg PO DAILY 06/17/19 10/11/21 Metoprolol Succinate [Toprol Xl] 100 mg PO DAILY 06/17/19 10/11/21 Aspirin 81 mg PO DAILY 07/09/19 10/11/21 Multivitamin [Multivitamins] 1 cap PO DAILY 07/09/19 10/11/21 Cholecalciferol (Vitamin D3) 25 mcg PO DAILY 02/06/21 10/11/21 [Vitamin D3] Cyanocobalamin (Vitamin B-12) 1,000 mcg PO DAILY 02/06/21 10/11/21 [Vitamin B-12] Sulfamethox/Trimeth 800/160 1 tablet PO BID 07/22/21 10/11/21 [Bactrim Ds] cephALEXin [Keflex] 500 mg PO Q6H 07/22/21 10/11/21 - Allergies Allergies/Adverse Reactions: Allergies Allergy/AdvReac Type Severity Reaction Status Date / Time Sulfa (Sulfonamide Allergy Unknown Verified 03/06/22 09:02 Antibiotics) - Social History Does the pt smoke?: No Smoking Status: Former smoker Does the pt drink ETOH?: Yes Does the pt have substance abuse?: No - Immunizations Immunizations: TDAP >10years/unknown, Other immun not current - POLST Patient has POLST: No PD ED PE NORMAL - Vitals Vital signs reviewed: Yes - General General: Alert and oriented X 3 - HEENT HEENT: Atraumatic, PERRL, EOMI, Ears normal - Neck Neck: Supple, no meningeal sign, No bony TTP - Cardiac Cardiac: RRR, No gallop, No rub - Respiratory Respiratory: No respiratory distress, Clear bilaterally - Abdomen Abdomen: Soft, Non tender, Non distended - Male Male : Deferred - Back Back: No CVA TTP, No spinal TTP - Derm Derm: Normal color, Warm and dry, No rash - Extremities Extremities: No tenderness to palpate, Normal ROM s pain, Other (RLE>LLE, postoperative changes R thigh, 2+ DP pulses bilat, color/temp same bilaterally) - Neuro Neuro: Alert and oriented X 3, tipple engineer 2-12 intact, No motor deficit, No sensory deficit, Normal speech - Psych Psych: Normal mood, Normal affect Results - Vitals Vitals: Vital Signs - 24 hr 03/06/22 03/06/22 08:46 10:30 Temperature 36.9 C Heart Rate 80 70 Respiratory 14 16 Rate Blood Pressure 108/68 107/70 O2 Saturation 98 97 Oxygen O2 Source Room air PD MEDICAL DECISION MAKING - ED course ED course: Lower extremity swelling postoperatively. Ultrasound negative for acute findings. Patient neurovascularly intact. Patient and his are happy to know that he does not have a blood clot. Have a follow-up appointment within the week with his orthopedic surgeon for routine postoperative check. Patient counseled to return immediately for worsening swelling, numbness, worsening pain, or any other concerning symptoms. Departure - Departure Disposition: 01 Home, Self Care Clinical Impression: Swelling of lower extremity Condition: Good Instructions: ED Leg Swelling Unilateral Comments: FOLLOW UP WITH YOUR ORTHOPEDIC SURGEON. CONTINUE TO USE PRESSURE STOCKINGS AND ELEVATE YOUR EXTREMITY WHEN AT REST Discharge Date/Time: 03/06/22 10:36
--- OUTSIDE RECORDS SUMMARY | 2022-03-06 08:57 | EXTERNAL MEDICAL SUMMARY RPT | Continuity of Care Document ---
:1950 Author Organization [facility] Address [address] [place] [id number] Phone Allergies No information. Encounters No information. Functional Status No information. Immunizations No information. Medications No information. Problems No information. Procedures No information. Results/Labs test date author facility value unit interpret ation Result panel 1 (unknown) (no (unknown) (unknown) (no value) (units (unk nown) date) unknown) (unknown) (no (unknown) (unknown) [address] [place] [address] (units (unknown) date) unknown) (unknown) (no (unknown) (unknown) [place] [address] (unit s (unknown) date) unknown) (unknown) (no (unknown) (unknown) [facility] (units (unknown) date) unknown) (unknown) (no (unknown) (unknown) [facility] (units (unknown) date) Report unknown) (unknown) (no (unknown) (unknown) Signed (units (unkno wn) date) unknown) (unknown) (no (unknown) (unknown) (no value) (units (unk nown) date) unknown) (unknown) (no (unknown) (unknown) The lymph node (units (unknown) date) demonstrates low unknown) level FDG uptake with maximum SUV 1.8, below (unknown) (no (unknown) (unknown) 02/13/22 (units (unkno wn) date) unknown) (unknown) (no (unknown) (unknown) 1. No evidence for (units (unknown) date) residual or unknown) recurrent lymphoma. (unknown) (no (unknown) (unknown) 2. Mildly enlarged (units (unknown) date) inguinal lymph nodes unknown) are seen bilaterally demonstrating low (unknown) (no (unknown) (unknown) 3 mm nonobstructive (unit s (unknown) date) stone is seen in unknown) left kidney. Small and large intestines (unknown) (no (unknown) (unknown) A 1.6 x 3.1 cm left (unit s (unknown) date) inguinal lymph node unknown) is again identified, minimally (unknown) (no (unknown) (unknown) Abdomen and pelvis: (unit s (unknown) date) There are unknown) postsurgical changes in the right groin with (unknown) (no (unknown) (unknown) After intravenous (units (unknown) date) administration of unknown) F-18 fluoro-deoxyglucose (FDG), noncontrast (unknown) (no (unknown) (unknown) Approved by: Dayne (units (unknown) date) Ronni Gray on unknown) 02/13/2022 at 15:13 (unknown) (no (unknown) (unknown) Bones: No abnormal (unit s (unknown) date) osseous tracer unknown) uptake. No lytic or blastic bony lesions. (unknown) (no (unknown) (unknown) COMPARISON: CR, (units (unknown) date) CHEST FOR PICC unknown) PLACEMENT, 03/12/2012, 13:48. [facility], (unknown) (no (unknown) (unknown) CT FUSION SKULL 2 (units (unknown) date) THIGH, 09/19/2021, unknown) 9:16. [facility], RG, CT PET (unknown) (no (unknown) (unknown) Dictated by: Dayne (units (unknown) date) Ronni Gray on unknown) 02/13/2022 at 15:01 (unknown) (no (unknown) (unknown) FINDINGS: (units (unkn own) date) unknown) (unknown) (no (unknown) (unknown) Head and neck: No (units (unknown) date) soft tissue masses unknown) in the neck. No enlarged cervical or (unknown) (no (unknown) (unknown) Heart size is (units ( unknown) date) mildly increased. unknown) There is moderate coronary artery (unknown) (no (unknown) (unknown) IMPRESSION: (units (un known) date) unknown) (unknown) (no (unknown) (unknown) INDICATIONS: (units (u nknown) date) PS/Restaging Mantle unknown) Cell Lymphoma (unknown) (no (unknown) (unknown) RADIOPHARMACEUTICAL (unit s (unknown) date) : 8.1 mCi F-18 unknown) fluorodeoxyglucose IV. (unknown) (no (unknown) (unknown) TECHNIQUE: (units (unk nown) date) unknown) (unknown) (no (unknown) (unknown) TO MID THIGH, (units ( unknown) date) 07/25/2021, 14:36. unknown) (unknown) (no (unknown) (unknown) There is (units (unkno wn) date) heterogeneous unknown) hepatic tracer uptake. Liver is normal in size, without (unknown) (no (unknown) (unknown) Thorax: No (units (un known) date) enlarged unknown) mediastinal, hilar, or axillary lymph nodes. No abnormal (unknown) (no (unknown) (unknown) below intravascular (unit s (unknown) date) background uptake unknown) ([place]au[place]1). A mildly enlarged right (unknown) (no (unknown) (unknown) calcifications. No (unit s (unknown) date) free fluid or air. unknown) No pelvic or inguinal adenopathy. (unknown) (no (unknown) (unknown) glands appear (units ( unknown) date) normal. Sinuses and unknown) mastoids are clear. (unknown) (no (unknown) (unknown) glucose level as (units (unknown) date) measured by unknown) glucometer was 19 mg/dl. The area imaged spanned (unknown) (no (unknown) (unknown) in caliber. Aorta (units (unknown) date) and inferior vena unknown) cava are normal in size. Severe (unknown) (no (unknown) (unknown) intravascular (units ( unknown) date) background activity unknown) ([place]au[place]1). (unknown) (no (unknown) (unknown) lymph node measures (unit s (unknown) date) 1.4 x 2.7 cm, unknown) demonstrates maximum SUV 2.2, less than to (unknown) (no (unknown) (unknown) masses. The spleen (unit s (unknown) date) is normal in size. unknown) Gallbladder is normal. . Pancreas is (unknown) (no (unknown) (unknown) morphology. No (units (unknown) date) adrenal nodules. unknown) Kidneys are normal in size, without (unknown) (no (unknown) (unknown) overlapping (units (un known) date) emission PET images unknown) was then obtained. The patient's pretest (unknown) (no (unknown) (unknown) pericardial (units (un known) date) effusion. Small unknown) hiatal hernia. (unknown) (no (unknown) (unknown) skull phase to the (units (unknown) date) upper thighs. unknown) (unknown) (no (unknown) (unknown) soft tissue (units (un known) date) thickening. Mildly unknown) increased uptake in the area measures maximum (unknown) (no (unknown) (unknown) supraclavicular (units (unknown) date) lymph nodes; no unknown) abnormal frank tracer uptake. Salivary and (unknown) (no (unknown) (unknown) thickness is (units (u nknown) date) normal. There are unknown) bilateral fat containing inguinal hernias. (unknown) (no (unknown) (unknown) tracer uptake. No (units (unknown) date) acute pulmonary unknown) opacities. No pleural effusions or (unknown) (no (unknown) (unknown) uptake ([place]1). (unit s (unknown) date) unknown) (unknown) (no (unknown) (unknown) uptake, consistent (units (unknown) date) with treated unknown) disease. ([place]1). (unknown) (no (unknown) (unknown) were obtained for (units (unknown) date) attenuation unknown) correction and anatomic localization. A series (unknown) (no (unknown) (unknown) [id number] (units (unkno wn) date) unknown) (unknown) (no (unknown) (unknown) Accession Number: (units (unknown) date) [id number] unknown) (unknown) (no (unknown) (unknown) Age/Sex: 71 / M (units (unknown) date) Date of Service: unknown) (unknown) (no (unknown) (unknown) Bladder wall (units (u nknown) date) unknown) (unknown) (no (unknown) (unknown) CT images (units (unkn own) date) unknown) (unknown) (no (unknown) (unknown) : 1950 (units (unknown) date) Acct:[id number] unknown) (unknown) (no (unknown) (unknown) FDG (units (unkno wn) date) unknown) (unknown) (no (unknown) (unknown) Loc: [facility] (units (unkn own) date) unknown) (unknown) (no (unknown) (unknown) NM, NM PET (units (unk nown) date) unknown) (unknown) (no (unknown) (unknown) Ordering Provider: (units (unknown) date) Brady León MD unknown) (unknown) (no (unknown) (unknown) PROCEDURE: NM PET (unit s (unknown) date) CT FUSION SKULL 2 unknown) THIGH (unknown) (no (unknown) (unknown) Patient: (units (unkno wn) date) Dale Jovel unknown) MR#: [id number] (unknown) (no (unknown) (unknown) Procedure: NM PET (units (unknown) date) CT fusion skull 2 unknown) thigh (unknown) (no (unknown) (unknown) SKULL BASE (units (unk nown) date) unknown) (unknown) (no (unknown) (unknown) SUV 2.4, (units (unkno wn) date) unknown) (unknown) (no (unknown) (unknown) are normal (units (unk nown) date) unknown) (unknown) (no (unknown) (unknown) associated (units (unk nown) date) unknown) (unknown) (no (unknown) (unknown) atherosclerotic (units (unknown) date) unknown) (unknown) (no (unknown) (unknown) calcification. No (units (unknown) date) unknown) (unknown) (no (unknown) (unknown) decreased in size. (units (unknown) date) unknown) (unknown) (no (unknown) (unknown) fasting blood (units ( unknown) date) unknown) (unknown) (no (unknown) (unknown) focal (units (unkno wn) date) unknown) (unknown) (no (unknown) (unknown) from the (units (unkno wn) date) unknown) (unknown) (no (unknown) (unknown) hydronephrosis. A (units (unknown) date) unknown) (unknown) (no (unknown) (unknown) inguinal (units (unkno wn) date) unknown) (unknown) (no (unknown) (unknown) frank (units (unkno wn) date) unknown) (unknown) (no (unknown) (unknown) normal in (units (unkn own) date) unknown) (unknown) (no (unknown) (unknown) of (units (unkno wn) date) unknown) (unknown) (no (unknown) (unknown) pneumothorax. (units ( unknown) date) unknown) (unknown) (no (unknown) (unknown) thyroid (units (unkno wn) date) unknown) (unknown) (no (unknown) (unknown) vascular (units (unkno wn) date) unknown) Social History No information. Vital Signs No information.
--- NOTE | 2022-03-06 10:03 | Ultrasound Report ---
PROCEDURE: Duplex Ext Veins Right INDICATIONS: POSTOP RLE SWELLING EVAL DVT TECHNIQUE: Real-time imaging, as well as color and pulse Doppler interrogation, were performed of the lower extr emity deep veins from the inguinal ligament to the popliteal fossa. COMPARISON: None. FINDINGS: The deep veins are normally compressible, and free of intraluminal thrombus. Color and pu lse Doppler demonstrate normal phasic intraluminal flow. There is normal augmentation response to di stal compression maneuver. IMPRESSION: No evidence of DVT in visualized right lower extremity veins. Reviewed by: Walter Gilliland MD on 03/06/2022 10:01 AM PDT Approved by: Walter Gilliland MD on 03/06/2022 10:01 AM PDT Station ID: [id number]
[2022-03-06 10:31] VITALS: BP 107/70
== END 2022-03-06 10:36 | disposition home or self-care (01) ==
LOC: ED 08:37
DX: R22.41 Localized swelling, mass and lump, right lower limb (principal); Z96.641 Presence of right artificial hip joint; I10 Essential (primary) hypertension; I48.91 Unspecified atrial fibrillation; Z79.01 Long term (current) use of anticoagulants; Z87.891 Personal history of nicotine dependence
CPT/HCPCS: 99284

== ENCOUNTER 2022-08-16 10:42 | Outpatient (CLI) | payer MEDICARE ==
[2022-08-16] MEDS ORDERED: DIATRIZOATE MEGLU/DIATRIZO SOD 30 ML BOTTLE PO ONE ×2 (10:48→12:21)
[2022-08-16] MEDS ORDERED: iohexoL-300 100 ML VIAL ONE (10:48)
[2022-08-16 10:58] LABS: BASOPHILS % (AUTO) 0.8 %; EOSINOPHILS # (AUTO) 0.2 10^3/uL (0.0-0.7); EOSINOPHILS % (AUTO) 2.9 %; HCT - HEMATOCRIT 42.8 % (42.0-52.0); HGB - HEMOGLOBIN 14.2 g/dL (14.0-18.0); LYMPHOCYTES % (AUTO) 18.3 %; MEAN CORPUSCULAR HEMOGLOBIN 31.4 pg (27.0-31.0); MEAN CORPUSCULAR HGB CONC 33.2 g/dL (32.0-36.0); MEAN CORPUSCULAR VOLUME 94.7 fL (80.0-94.0); MEAN PLATELET VOLUME 9.7 fL (7.4-11.4); MONOCYTES # (AUTO) 0.8 10^3/uL (0.0-1.0); NEUTROPHILS # (AUTO) 3.2 10^3/uL (1.5-6.6); NEUTROPHILS % (AUTO) 61.6 %; PLT - PLATELET COUNT 157 10^3/uL (130-450); RED BLOOD COUNT 4.52 10^6/uL (4.70-6.10); RED CELL DISTRIBUTION WIDTH 14.4 % (12.0-15.0); WHITE BLOOD COUNT 5.3 x10^3/uL (4.8-10.8)
[2022-08-16 11:12] LABS: ALBUMIN 4.5 g/dL (3.2-5.5); ALBUMIN/GLOBULIN RATIO 1.7 (1.0-2.2); CALCIUM 9.1 mg/dL (8.5-10.3); CREATININE 0.7 mg/dL (0.6-1.2); MAGNESIUM 1.7 mg/dL (1.7-2.8); POTASSIUM 3.4 mmol/L (3.5-5.0); TOTAL PROTEIN 7.2 g/dL (6.7-8.2)
[2022-08-16] MEDS ORDERED: iohexoL-300 100 ML VIAL IVP ONE (12:21)
--- NOTE | 2022-08-16 15:30 | CT Report ---
PROCEDURE: CHEST W INDICATIONS: MANTLE CELL LYMPHOMA CONTRAST:100ml omni 300 TECHNIQUE: After the administration of intravenous contrast, 1 mm axial images were acquired from the pulmonary apices through the posterior costophrenic angles. Axial 5 mm soft tissue kernel reconstructions were performed as well as 8 mm axial MIP and coronal and sagittal 5 mm reformations. For radiation dose reduction, the following was used: automated exposure control, adjustment of mA and/or kV according to patient size. COMPARISON: None. FINDINGS: Image quality: Good Lungs and pleura: No pleural effusions or dense consolidation. There is a subsolid nodule in the left apex measuring 6 mm. Scattered scarring and atelectasis are also present. Micronodules are best seen on maximum intensity projection images, for example in the right series 8 image 69. No overtly suspi cious nodule. Mediastinum, heart, and esophagus: No hiatal hernia. Cardiomegaly and biatrial enlargement. Coronary calcifications and valvular/annular calcifications. No pathologic adenopathy by size criteria. A left portacatheter terminates in the SVC. Chest wall and thyroid: No actionable thyroid nodule identified. Gynecomastia. Chest wall is otherwis e unremarkable. Upper abdomen: Separately dictated Bones: No acute or suspicious osseous abnormality. IMPRESSION: No active malignancy identified in the chest. Additional incidental findings above. Small pulmonary n odules, including a 6 mm groundglass nodule in the left apex can be followed on subsequent imaging. A bdomen findings are separately dictated. Reviewed by: Hector Brooks MD on 08/16/2022 3:28 PM PST Approved by: Hector Brooks MD on 08/16/2022 3:28 PM PST Station ID: [id number]
--- NOTE | 2022-08-16 15:35 | CT Report ---
PROCEDURE: ABDOMEN/PELVIS W INDICATIONS: MANTLE CELL LYMPHOMA CONTRAST: 100ml omni 300 TECHNIQUE: After the administration of IV and oral contrast, 5 mm thick sections acquired from the diaphragms to the symphysis. 5 mm thick coronal and sagittal reformats were acquired. For radiation dose reducti on, the following was used: automated exposure control, adjustment of mA and/or kV according to beni ent size. COMPARISON: None. FINDINGS: Image quality: Good Lower chest: Separately dictated Solid organs: Liver is unremarkable. Gallbladder is unremarkable. No pathologic dilation of the bilia ry tree or pancreatic duct. No splenomegaly. No adrenal nodules. Bosniak 1 and 2 renal lesions are pr esent, for which no dedicated follow-up is necessary per 2019 proposed guidelines. No hydronephrosis. Vessels and lymph nodes: No abdominal aortic aneurysm or pathologic adenopathy by size criteria. Athe rosclerotic calcifications are seen. Nonopacification of the bilateral superficial femoral arteries, partially evaluated. The profunda arteries are opacified. Bowel and peritoneum: No bowel obstruction. No pathologic ascites. Body wall: Unremarkable. No abscess or hematoma. Right groin postsurgical changes are present. Small inguinal fat-containing hernias. There are also postoperative changes at the right hip region. Pelvis: Obscured by metallic artifact. Overall no gross abnormality Bones: Right hip arthroplasty in place. Scattered degenerative changes without acute or suspicious os seous finding. IMPRESSION: No definite active metastases in the abdomen or pelvis. Other findings as above. Of note, there is nonopacification of the bilateral superficial femoral arteries of uncertain chronic ity. Correlate with vascular exam. Chest findings are separately dictated. Reviewed by: Hector Brooks MD on 08/16/2022 3:34 PM PST Approved by: Hector Brooks MD on 08/16/2022 3:34 PM PST Station ID: [id number]
== END 2022-08-16 10:43 | disposition home or self-care (01) ==
LOC: LAB 10:42
PROVIDERS: ATTEND Internal Medicine
DX: C83.15 Mantle cell lymphoma, lymph nodes of inguinal region and lower limb (principal); R91.8 Other nonspecific abnormal finding of lung field
CPT/HCPCS: 36415; 71260; 74177; 80053; 83735; 85025; Q9963; Q9967

== ENCOUNTER 2022-10-27 12:27 | Emergency (ER) | payer MEDICARE ==
[2022-10-27] MEDS ORDERED: SODIUM CHLORIDE 0.9% 1,000 ML IV STA ×2 (12:59→16:08)
--- NOTE | 2022-10-27 13:01 | ED Physician Documentation ---
History of Present Illness - Stated complaint Stated Complaint: FEVER/CHILLS POST OP - Chief complaint Chief Complaint: Fever - History obtained from History obtained from: Patient - Additonal information Additional information: 72-year-old gentleman with history of A-fib and peripheral vascular disease as well as hypertension. He is not diabetic. He had a left femoral endarterectomy about 10 days ago at [facility]. Over the last 2 days has developed fever and shaking chills as well as body aches and some increased over baseline shortness of breath without cough. His thinks he is mildly confused. No increased pain at the endarterectomy site. 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 PD PAST MEDICAL HISTORY - Past Medical History Cardiovascular: Hypertension, Atrial fibrillation, Other Respiratory: Sleep apnea, CPAP use Neuro: None Endocrine/Autoimmune: None GI: Colon polyps : None HEENT: None Psych: None Musculoskeletal: None Derm: None - Past Surgical History Past Surgical History: Yes General: Appendectomy Ortho: Knee replacement, Arthroscopic surgery Cardiovascular: Other HEENT: Tonsil/Adenoidectomy - Present Medications Home Medications: Ambulatory Orders Medication Instructions Recorded Confirmed Chlorthalidone 25 mg PO DAILY 05/18/19 10/27/22 Dabigatran Etexilate Mesylate 150 mg PO BID 05/18/19 10/27/22 [Pradaxa] Simvastatin 40 mg PO DAILY PM 05/18/19 10/27/22 lisinopriL [Lisinopril] 5 mg PO DAILY 05/18/19 10/27/22 Ferrous Gluconate [Iron] 65 mg PO DAILY 06/17/19 10/27/22 Metoprolol Succinate [Toprol Xl] 50 mg PO BID 06/17/19 10/27/22 Multivitamin [Multivitamins] 1 cap PO DAILY 07/09/19 10/27/22 Cholecalciferol (Vitamin D3) 25 mcg PO DAILY 02/06/21 10/27/22 [Vitamin D3] Cyanocobalamin (Vitamin B-12) 1,000 mcg PO DAILY 02/06/21 10/27/22 [Vitamin B-12] Clopidogrel [Plavix] 75 mg PO DAILY 10/27/22 10/27/22 Docusate Sodium 100Mg Capsule 100 mg PO BID 10/27/22 10/27/22 [Colace 100Mg Capsule] - Allergies Allergies/Adverse Reactions: Allergies Allergy/AdvReac Type Severity Reaction Status Date / Time Sulfa (Sulfonamide Allergy Unknown Verified 10/27/22 12:36 Antibiotics) - Social History Does the pt smoke?: No Smoking Status: Former smoker Does the pt drink ETOH?: Yes Does the pt have substance abuse?: No - Immunizations Immunizations: TDAP >10years/unknown, Other immun not current - POLST Patient has POLST: No PD ED PE NORMAL - Vitals Vital signs reviewed: Yes - General General: No acute distress, Other (A little shaky; SOME MEMORY DIFFICULTIES, A/O X 2) - HEENT HEENT: PERRL, EOMI - Neck Neck: Supple, no meningeal sign, No bony TTP - Cardiac Cardiac: Other (Irregularly irregular without murmur) - Respiratory Respiratory: No respiratory distress, Clear bilaterally - Abdomen Abdomen: Non tender - Back Back: No CVA TTP, No spinal TTP - Derm Derm: Other (Left femoral endarterectomy incision is clean dry and intact without significant warmth or redness.) - Extremities Extremities: Other (Mild pitting pedal edema.) - Neuro Neuro: Normal speech, Other (MILD CONFUSED) Eye Opening: Spontaneous Motor: Obeys Commands Verbal: Confused GCS Score: 14 Results - Vitals Vitals: Vital Signs - 24 hr 10/27/22 10/27/22 10/27/22 12:32 13:25 14:05 Temperature 37.1 C 39 C H Heart Rate 99 113 H 103 H Respiratory 20 14 18 Rate Blood Pressure 132/71 H 138/82 H 121/77 O2 Saturation 98 99 99 10/27/22 10/27/22 10/27/22 15:00 16:00 16:38 Temperature 39.4 C H 37.8 C Heart Rate 108 H 97 96 Respiratory 12 14 14 Rate Blood Pressure 110/58 L 87/57 L 114/60 O2 Saturation 98 95 96 10/27/22 17:17 Temperature Heart Rate 93 Respiratory 22 Rate Blood Pressure 96/78 O2 Saturation 96 Oxygen O2 Source Room air - Labs Labs: Laboratory Tests 10/27/22 10/27/22 10/27/22 12:59 12:59 12:59 WBC 10.9 H RBC 3.52 L Hgb 11.7 L Hct 34.0 L MCV 96.6 H MCH 33.2 H MCHC 34.4 RDW 14.1 Plt Count 170 MPV 9.7 Neut # (Auto) 9.7 H Lymph # (Auto) 0.3 L Marin # (Auto) 0.8 Eos # (Auto) 0.0 Baso # (Auto) 0.0 Absolute Nucleated RBC 0.00 Nucleated RBC % 0.0 Sodium 135 Potassium 3.4 L Chloride 98 L Carbon Dioxide 28 Anion Gap 9.0 BUN 19 Creatinine 0.9 Estimated GFR (MDRD) 83 L Glucose 131 H Lactic Acid 1.6 Calcium 8.9 Total Bilirubin 0.6 AST 14 ALT 13 Alkaline Phosphatase 48 Total Protein 7.0 Albumin 4.0 Globulin 3.0 Albumin/Globulin Ratio 1.3 Urine Color Urine Clarity Urine pH Ur Specific Provencal Urine Protein Urine Glucose (UA) Urine Ketones Urine Occult Blood Urine Nitrite Urine Bilirubin Urine Urobilinogen Ur Leukocyte Esterase Urine RBC Urine WBC Ur Squamous Epith Cells Urine Bacteria Urine Culture Comments Nasal Adenovirus (PCR) Nasal B. parapertussis DNA (PCR) Nasal Coronavir 229E PCR Nasal Coronavir HKU1 PCR Nasal Coronavir NL63 PCR Nasal Coronavir OC43 PCR Nasal Enterovir/Rhinovir PCR Nasal Influenza B PCR Nasal Influenza A PCR Nasal Parainfluen 1 PCR Nasal Parainfluen 2 PCR Nasal Parainfluen 3 PCR Nasal Parainfluen 4 PCR Nasal RSV (PCR) Nasal B.pertussis DNA PCR Nasal C.pneumoniae (PCR) Esteban Human Metapneumo PCR Nasal M.pneumoniae (PCR) Nasal SARS-CoV-2 (PCR) 10/27/22 10/27/22 13:20 14:50 WBC RBC Hgb Hct MCV MCH MCHC RDW Plt Count MPV Neut # (Auto) Lymph # (Auto) Marin # (Auto) Eos # (Auto) Baso # (Auto) Absolute Nucleated RBC Nucleated RBC % Sodium Potassium Chloride Carbon Dioxide Anion Gap BUN Creatinine Estimated GFR (MDRD) Glucose Lactic Acid Calcium Total Bilirubin AST ALT Alkaline Phosphatase Total Protein Albumin Globulin Albumin/Globulin Ratio Urine Color DARK YELLOW Urine Clarity CLEAR Urine pH 6.0 Ur Specific Provencal 1.020 Urine Protein NEGATIVE Urine Glucose (UA) NEGATIVE Urine Ketones NEGATIVE Urine Occult Blood TRACE-INTA Urine Nitrite NEGATIVE Urine Bilirubin NEGATIVE Urine Urobilinogen 0.2 (NORMAL) Ur Leukocyte Esterase NEGATIVE Urine RBC 0-5 Urine WBC 0-3 Ur Squamous Epith Cells NONE SEEN Urine Bacteria None Seen Urine Culture Comments NOT INDICATED Nasal Adenovirus (PCR) NOT DETECTED Nasal B. parapertussis DNA (PCR) NOT DETECTED Nasal Coronavir 229E PCR NOT DETECTED Nasal Coronavir HKU1 PCR NOT DETECTED Nasal Coronavir NL63 PCR NOT DETECTED Nasal Coronavir OC43 PCR NOT DETECTED Nasal Enterovir/Rhinovir PCR NOT DETECTED Nasal Influenza B PCR NOT DETECTED Nasal Influenza A PCR NOT DETECTED Nasal Parainfluen 1 PCR NOT DETECTED Nasal Parainfluen 2 PCR NOT DETECTED Nasal Parainfluen 3 PCR NOT DETECTED Nasal Parainfluen 4 PCR NOT DETECTED Nasal RSV (PCR) NOT DETECTED Nasal B.pertussis DNA PCR NOT DETECTED Nasal C.pneumoniae (PCR) NOT DETECTED Esteban Human Metapneumo PCR NOT DETECTED Nasal M.pneumoniae (PCR) NOT DETECTED Nasal SARS-CoV-2 (PCR) NOT DETECTED - Rads (name of study) CXR NL Relevant Findings:: Final report received, EMP independent interpretation of test PD Medical Decision Making - ED course ED course: 72-year-old gentleman presents with fever. He has some body aches and increased shortness of breath. He is 10 days out from a left femoral endarterectomy but the site looks fine. He developed a fever of 39.4 here and was persistently tachycardic. He is modestly confused. There is no source for the fever. His chest x-ray is negative. CBC reviewed with mild elevation in the white count and mild anemia. CMP reviewed and normal. Lactate normal. COVID test negative with the remainder of the bio fire respiratory panel negative. Urinalysis negative/normal. Given that he is encephalopathic and very febrile we will culture him up and put him on antibiotics. Specifically cefepime and vancomycin and I spoke with Dr. Cartwright for admission at 3:[address] Cartwright did see the patient at bedside and performed a limited bedside echo. Reportedly the patient has new severe TR and a suspicious aortic valve for vegetation and as such recommends transfer for potential endocarditis and DAMIAN. I discussed the case with Dr. Francois, on-call cardiology at [facility]. She agrees with transfer. Defers to the hospitalist there for admission. We spoke at approximately 5:02 PM. Accepted by Jennifer Biswas nurse practitioner the hospitalist service at [facility] at 5:45 PM and cobras are completed. Departure - Departure Disposition: 02 Transfer Acute Care Hosp Clinical Impression: Fever, Encephalopathy Condition: Serious
[2022-10-27 13:09] LABS: BASOPHILS % (AUTO) 0.2 %; EOSINOPHILS % (AUTO) 0.1 %; HGB - HEMOGLOBIN 11.7 g/dL (14.0-18.0); LYMPHOCYTES # (AUTO) 0.3 10^3/uL (1.5-3.5); LYMPHOCYTES % (AUTO) 2.6 %; MEAN CORPUSCULAR HEMOGLOBIN 33.2 pg (27.0-31.0); MEAN CORPUSCULAR HGB CONC 34.4 g/dL (32.0-36.0); MEAN CORPUSCULAR VOLUME 96.6 fL (80.0-94.0); MEAN PLATELET VOLUME 9.7 fL (7.4-11.4); MONOCYTES # (AUTO) 0.8 10^3/uL (0.0-1.0); MONOCYTES % (AUTO) 7.3 %; NEUTROPHILS # (AUTO) 9.7 10^3/uL (1.5-6.6); NEUTROPHILS % (AUTO) 89.2 %; PLT - PLATELET COUNT 170 10^3/uL (130-450); RED BLOOD COUNT 3.52 10^6/uL (4.70-6.10); RED CELL DISTRIBUTION WIDTH 14.1 % (12.0-15.0); WHITE BLOOD COUNT 10.9 x10^3/uL (4.8-10.8)
[2022-10-27 13:40] LABS: ALBUMIN/GLOBULIN RATIO 1.3 (1.0-2.2); BILIRUBIN,TOTAL 0.6 mg/dL (0.2-1.0); CALCIUM 8.9 mg/dL (8.5-10.3); CREATININE 0.9 mg/dL (0.6-1.2); POTASSIUM 3.4 mmol/L (3.5-5.0)
--- NOTE | 2022-10-27 14:13 | XRAY Report ---
PROCEDURE: Chest 1 View X-Ray INDICATIONS: fever TECHNIQUE: One view of the chest was acquired. COMPARISON: None. FINDINGS: Surgical changes and devices: A left chest wall port is seen with good positioning of the tip. Lungs and pleura: No pleural effusions or pneumothorax. Lungs are clear. Mediastinum: Mediastinal contours appear normal. Heart size is normal. Bones and chest wall: No suspicious bony lesions. Overlying soft tissues appear unremarkable. IMPRESSION: No acute cardiopulmonary abnormality. Reviewed by: Domenico Snyder on 10/27/2022 1:11 PM LEIDA Approved by: Domenico Snyder on 10/27/2022 1:11 PM LEIDA Station ID: [id number]
[2022-10-27 14:16] LABS: B. PARAPERTUSSIS- RESP PCR PAN NOT DETECTED; B. PERTUSSIS- RESP PCR PANEL NOT DETECTED; C. PNEUMONIAE- RESP PCR PANEL NOT DETECTED; CORONAVIRUS 229E-RESP PCR NOT DETECTED; CORONAVIRUS HKU1-RESP PCR NOT DETECTED; CORONAVIRUS NL63-RESP PCR NOT DETECTED; CORONAVIRUS OC43-RESP PCR NOT DETECTED; HUMAN METAPNEUMOVIRUS NOT DETECTED; INFLUENZA A- RESP PCR PANEL NOT DETECTED; INFLUENZA B - RESP PCR PANEL NOT DETECTED; M. PNEUMONIAE- RESP PCR PANEL NOT DETECTED; PARAINFLUENZA VIRUS 1 NOT DETECTED; PARAINFLUENZA VIRUS 2 NOT DETECTED; PARAINFLUENZA VIRUS 3 NOT DETECTED; PARAINFLUENZA VIRUS 4 NOT DETECTED; RHINOVIRUS/ENTEROVIRUS NOT DETECTED; RSV- RESP PCR PANEL NOT DETECTED; SARS-CoV-2 -RESP PCR PANEL NOT DETECTED
[2022-10-27] MEDS ORDERED: ACETAMINOPHEN 500 MG TABLET PO STA ×2 (14:20→19:07)
[2022-10-27 14:58] LABS: BILIRUBIN,URINE NEGATIVE (NEGATIVE); GLUCOSE, URINE (UA) NEGATIVE (NEGATIVE); KETONES,URINE (UA) NEGATIVE (NEGATIVE); LEUKOCYTE ESTERASE, URINE NEGATIVE (NEGATIVE); NITRITE,URINE NEGATIVE (NEGATIVE); OCCULT BLOOD,URINE TRACE-INTA (NEGATIVE); PROTEIN,URINE NEGATIVE (NEGATIVE); UROBILINOGEN,URINE 0.2 (NORMAL) E.U./dL (NORMAL)
[2022-10-27 15:01] LABS: CLARITY,URINE CLEAR (CLEAR)
[2022-10-27] MEDS ORDERED: VANCOMYCIN INJ 1.25 GM in SODIUM CHLORIDE 0.9% 250 ML IV STA (15:07)
[2022-10-27] MEDS ORDERED: CEFEPIME 2 GM in SODIUM CHLORIDE 0.9% MINIBAG 100 ML IV STA (15:07)
[2022-10-27 15:11] LABS: BACTERIA,URINE None Seen /HPF (None Seen); RBC,URINE 0-5 /HPF (0-5); SQUAMOUS EPITHELIAL CELL,UR NONE SEEN (<= Few); WBC,URINE 0-3 /HPF (0-3)
--- NOTE | 2022-10-27 17:06 | CONSULTATION NOTE ---
Referring Provider Name of Referring Provider:: Dr Mcguire Consult Date: 10/27/22 Chief Complaint - Chief Complaint Chief Complaint: SOB, fever and chills, had L fem endarterectomy 10 d ago History of Present Illness - History Obtained From History obtained from: ED provider, patient and pt's (on phone) - History of Present Illness HPI Comment/Other: This is a 72-year-old male with a history of lymphoma in remission but has a left port still in place, history of ISAIAH on CPAP, prior cardioversions but now in chronic A-fib on Pradaxa, history of peripheral vascular disease with prior revascularization of the his left arm blood vessel and 10 days ago he underwent left femoral endarterectomy as well as revascularization with possibly a stent on the right leg (as per the 's description). The patient was discharged and sent home 10 days ago after that procedure was done at [facility]. He presented to the ER today with complaints of 2 days of fever and chills and a complaint of mild shortness of breath but he is not sure how long ago that started. There was no cough, he denies chest pain, has not been orthopneic. He says that he is breathing comfortably at night because he wears his CPAP. He did admit to recent body aches. He does not know how high his fever was at home. There has been no nausea, vomiting or diarrhea. He commented to me that in his instructions from [facility] he was told to seek medical attention if there is a fever. The ER provider reached out to me and we discussed a possible admission here for fever of unknown origin. In the ER he was seen and appeared mildly confused, was A & O x2, had a flushed face, is febrile at 39.4 degrees C, blood pressure 90-110/60, tachycardic in A- fib at 110. Pertinent findings were that he is obese, in no isttress, the left groin has a big visible hematoma, and a large pressure bandage still taped over the L groin area but there is no drainage. He had good DP pulses of both feet. Pulmonary exam was unremarkable. Heart exam could not be done, because he is obese, barrel chested and has a lot of chest hair therefore no heart sounds were audible. Labs showed lactic acid 1.6, white blood count 10.9, normal BUN/creat, COVID-negative, CXR unremarkable and UA unremarkable.. 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 Upper limit of normal aortic root diameter with mural atherosclerosis seen. Normal left ventricular size and wall thickness. Mild global LV hypokinesis, moderate hypokinesis of the apex, LVEF 45 to 50%. Diastolic function could not be assessed with the patient in rapid A-fib Right ventricle moderately dilated. RV function appears moderately depressed Mitral annulus heavily calcified. Mitral leaflets are not well seen. The aortic valve has a focal sclerotic area that possibly could represent vegetation. The tricuspid valve was poorly seen. The pulmonic valve was not assessed. A catheter is seen in the right atrium which likely represents the tip of the Port-A-Cath. It is echogenic and therefore cannot rule out if it has any extra structure on it, such as vegetation Doppler of the valves shows mild mitral regurgitation, and severe tricuspid regurgitation. PA pressure could not be accurately measured. No pericardial effusion seen. History - Past Medical History Cardiovascular: reports: Hypertension, Atrial fibrillation, Other Respiratory: reports: Sleep apnea, CPAP use Neuro: reports: None Endocrine/Autoimmune: reports: None GI: reports: Colon polyps : reports: None HEENT: reports: None Psych: reports: None Musculoskeletal: reports: None Derm: reports: None MRSA Hx?: No - Past Surgical History General: reports: Appendectomy Ortho: reports: Knee replacement, Arthroscopic surgery Cardiovascular: reports: Other (cardioversion) HEENT: reports: Tonsil/Adenoidectomy - Family & Social History Family History: Mother: , Father: Family History Comment/Other: From a prior visit: Patient reported his father was heavy cigarette smoker, he from lung cancer at age 69. His mother had history dementia, at age 89 from surgical complication Living arrangement: At home Living Situation: With spouse/s.o. Social History Notes: Patient reported he stopped cigarette smoking in the yr 1999, he stopped using alcohol several years ago. - Substance History Use: Uses substance without health or social issues: NONE - POLST Patient has POLST: No Meds/Allgy - Home Medications Home Medications: Ambulatory Orders Medication Instructions Recorded Confirmed Chlorthalidone 25 mg PO DAILY 05/18/19 10/27/22 Dabigatran Etexilate Mesylate 150 mg PO BID 05/18/19 10/27/22 [Pradaxa] Simvastatin 40 mg PO DAILY PM 05/18/19 10/27/22 lisinopriL [Lisinopril] 5 mg PO DAILY 05/18/19 10/27/22 Ferrous Gluconate [Iron] 65 mg PO DAILY 06/17/19 10/27/22 Metoprolol Succinate [Toprol Xl] 50 mg PO BID 06/17/19 10/27/22 Multivitamin [Multivitamins] 1 cap PO DAILY 07/09/19 10/27/22 Cholecalciferol (Vitamin D3) 25 mcg PO DAILY 02/06/21 10/27/22 [Vitamin D3] Cyanocobalamin (Vitamin B-12) 1,000 mcg PO DAILY 02/06/21 10/27/22 [Vitamin B-12] Clopidogrel [Plavix] 75 mg PO DAILY 10/27/22 10/27/22 Docusate Sodium 100Mg Capsule 100 mg PO BID 10/27/22 10/27/22 [Colace 100Mg Capsule] - Allergies Allergies/Adverse Reactions: Allergies Allergy/AdvReac Type Severity Reaction Status Date / Time Sulfa (Sulfonamide Allergy Unknown Verified 10/27/22 12:36 Antibiotics) Review of Systems - Constitutional Constitutional: reports: Fever, Chills - Respiratory Respiratory: reports: SOB with exertion - Integumentary Integumentary: reports: Other (Multiple ecchymoses, many are from the recent procedure done at [facility]) Exam - Vital Signs Reviewed Vital Signs: Yes Vital Signs: Vital Signs x48h Temp Pulse Resp BP Pulse Ox 10/27/22 16:38 96 14 114/60 96 10/27/22 16:00 37.8 C 97 14 87/57 L 95 10/27/22 15:00 39.4 C H 108 H 12 110/58 L 98 10/27/22 14:05 39 C H 103 H 18 121/77 99 10/27/22 13:25 113 H 14 138/82 H 99 10/27/22 12:32 37.1 C 99 20 132/71 H 98 - Physical Exam General Appearance: positive: No acute distress Eyes Bilateral: positive: Normal inspection, EOMI ENT: positive: No signs of dehydration, Other (Face flushed) Neck: positive: Nml inspection, Other (Cannot evaluate JVP due to obesity) Respiratory: positive: No respiratory distress, Breath sounds nml Cardiovascular: positive: Other (Heart sounds are not audible in any location, he is obese and has a very hairy chest.) Abdomen: positive: Nml bowel sounds, Other (Obese) Skin: positive: Warm, Dry, Other (Several ecchymoses noted) Extremities: positive: Other (Left groin area has a pressure bandage, it is tender to palpation. No bruit is heard there. There is a local hematoma there.) Neurologic/Psychiatric: positive: Oriented x3, Motor nml Conclusion/Plan - Problem List (1) Fever Conclusion/Plan: Patient has a very high fever, has had it for 2 days. He has a mildly elevated white count and has tachycardia, and soft blood pressures, making sepsis and septic shock a possibility. Lactic acid is normal however. Because of the recent intervention of intravascular catheterization, this is likely the reason for a fever and infection although the exact location is not yet identified. This Echocardiogram had evidence of new findings compared to an Echo done in September 2020 (which the was reading to me by phone from home). This patient's right heart is larger than it was in 2020 and function has worsened. Also the aortic valve finding and severe tricuspid regurgitation are new since 2020. Recommendations: Given these findings and Hx of recent vascular instrumentation, the patient may need a DAMIAN to rule out endocarditis Since we have no DAMIAN capability here and no infectious disease specialty, I would recommend the patient be transferred to [facility] in [place] where he can have further management to accurately find the source of this fever and infection Agree with having drawn blood cultures before administering empiric antibiotics I discussed with the patient these recommendations and he understands. I also discussed with the ED provider Dr. Escobedo, these findings and my recommendations. Arrangements were started to have him transferred by ambulance. (2) PVD (peripheral vascular disease) Conclusion/Plan: Patient seems to have an extensive history of PVD Plan: Because all of his prior vascular interventions were done at [facility] in [place], they have details of all his previous findings. I recommend transfer be made to that hospital. (3) Atrial fibrillation with rapid ventricular response Conclusion/Plan: The tachycardia is likely related to his fever Recommendations: Knowing his EF is 50%, IV fluids can be administered, to treat the tachycardia You could also consider giving Lopressor IV x1 or a dose of digoxin orally or IV x1, if transfer will be delayed Continuation with Pradaxa or other anticoagulant is advised Thank you for allowing me to participate in the care of this patient. - Lab Results Fish Bones: 10/27/22 12:59 10/27/22 12:59 - Diagnostic Imaging Results Diagnostic Imaging Results: positive: Final report reviewed
[2022-10-27 19:07] VITALS: BP 115/66
== END 2022-10-27 19:26 | disposition short-term general hospital (02) ==
LOC: ED 12:27
DX: G93.40 Encephalopathy, unspecified (principal); Z87.891 Personal history of nicotine dependence; Z20.822 Contact with and (suspected) exposure to COVID-19
CPT/HCPCS: 36415; 71045; 80053; 81001; 83605; 85025; 85651; 86140; 87040; 87077; 87150; 87181; 87633; 96365; 96367; 99285; A9270; J3370; 87086

== ENCOUNTER 2023-03-21 07:49 | Outpatient (CLI) | payer MEDICARE ==
[2023-03-21 08:09] LABS: BASOPHILS % (AUTO) 0.9 %; EOSINOPHILS # (AUTO) 0.1 10^3/uL (0.0-0.7); EOSINOPHILS % (AUTO) 3.1 %; HCT - HEMATOCRIT 40.7 % (42.0-52.0); HGB - HEMOGLOBIN 13.8 g/dL (14.0-18.0); LYMPHOCYTES # (AUTO) 0.9 10^3/uL (1.5-3.5); LYMPHOCYTES % (AUTO) 20.6 %; MEAN CORPUSCULAR HGB CONC 33.9 g/dL (32.0-36.0); MEAN CORPUSCULAR VOLUME 94.4 fL (80.0-94.0); MEAN PLATELET VOLUME 9.8 fL (7.4-11.4); MONOCYTES # (AUTO) 0.6 10^3/uL (0.0-1.0); MONOCYTES % (AUTO) 13.9 %; NEUTROPHILS # (AUTO) 2.7 10^3/uL (1.5-6.6); NEUTROPHILS % (AUTO) 60.6 %; PLT - PLATELET COUNT 151 10^3/uL (130-450); RED BLOOD COUNT 4.31 10^6/uL (4.70-6.10); RED CELL DISTRIBUTION WIDTH 15.2 % (12.0-15.0); WHITE BLOOD COUNT 4.5 x10^3/uL (4.8-10.8)
[2023-03-21 08:17] LABS: ALBUMIN 4.4 g/dL (3.2-5.5); ALBUMIN/GLOBULIN RATIO 1.8 (1.0-2.2); BILIRUBIN,TOTAL 0.6 mg/dL (0.2-1.0); CALCIUM 9.2 mg/dL (8.5-10.3); POTASSIUM 3.8 mmol/L (3.5-4.5); TOTAL PROTEIN 6.9 g/dL (6.4-8.9)
== END 2023-03-21 07:50 | disposition home or self-care (01) ==
LOC: LAB 07:49
PROVIDERS: ATTEND Internal Medicine
DX: C83.15 Mantle cell lymphoma, lymph nodes of inguinal region and lower limb (principal)
CPT/HCPCS: 36415; 80053; 83615; 85025

== ENCOUNTER 2023-11-28 07:55 | Outpatient (CLI) | payer MEDICARE | END 2023-11-28 07:56 | disposition home or self-care (01) | LOC: LAB 07:55 | PROVIDERS: ATTEND Internal Medicine Hematology & Oncology | DX: C83.15 Mantle cell lymphoma, lymph nodes of inguinal region and lower limb (principal) | CPT/HCPCS: 82232 ==

== ENCOUNTER 2023-12-02 07:07 | Outpatient (CLI) | payer MEDICARE ==
[2023-12-02 07:37] LABS: BASOPHILS # (AUTO) 0.1 10^3/uL (0.0-0.1); BASOPHILS % (AUTO) 1.2 %; EOSINOPHILS # (AUTO) 0.1 10^3/uL (0.0-0.7); EOSINOPHILS % (AUTO) 2.3 %; HCT - HEMATOCRIT 41.4 % (42.0-52.0); HGB - HEMOGLOBIN 14.2 g/dL (14.0-18.0); LYMPHOCYTES % (AUTO) 19.6 %; MEAN CORPUSCULAR HEMOGLOBIN 34.4 pg (27.0-31.0); MEAN CORPUSCULAR HGB CONC 34.3 g/dL (32.0-36.0); MEAN CORPUSCULAR VOLUME 100.2 fL (80.0-94.0); MEAN PLATELET VOLUME 10.1 fL (7.4-11.4); MONOCYTES # (AUTO) 0.7 10^3/uL (0.0-1.0); MONOCYTES % (AUTO) 14.5 %; NEUTROPHILS % (AUTO) 62.2 %; PLT - PLATELET COUNT 160 10^3/uL (130-450); RED BLOOD COUNT 4.13 10^6/uL (4.70-6.10); RED CELL DISTRIBUTION WIDTH 13.1 % (12.0-15.0); WHITE BLOOD COUNT 4.8 x10^3/uL (4.8-10.8)
[2023-12-02 08:19] LABS: ALBUMIN 4.4 g/dL (3.2-5.5); ALBUMIN/GLOBULIN RATIO 2.1 (1.0-2.2); BILIRUBIN,TOTAL 0.7 mg/dL (0.2-1.0); CALCIUM 9.8 mg/dL (8.5-10.3); CREATININE 0.8 mg/dL (0.6-1.3); POTASSIUM 3.4 mmol/L (3.5-4.5); TOTAL PROTEIN 6.5 g/dL (6.4-8.9)
== END 2023-12-02 07:08 | disposition home or self-care (01) ==
LOC: LAB 07:07
PROVIDERS: ATTEND Internal Medicine Hematology & Oncology
DX: C83.15 Mantle cell lymphoma, lymph nodes of inguinal region and lower limb (principal)
CPT/HCPCS: 36415; 80053; 83615; 85025

== ENCOUNTER 2023-12-05 08:06 | Outpatient (CLI) | payer MEDICARE ==
[2023-12-05] MEDS ORDERED: iohexoL-300 100 ML VIAL ONE (08:11)
[2023-12-05] MEDS ORDERED: DIATRIZOATE MEGLU/DIATRIZO SOD 30 ML BOTTLE PO ONE (08:11)
[2023-12-05] MEDS: DIATRIZOATE MEGLU/DIATRIZO SOD 30 ML BOTTLE PO ONE (09:46)
[2023-12-05] MEDS: iohexoL-300 100 ML VIAL IVP ONE (09:47)
--- NOTE | 2023-12-05 11:48 | CT Report ---
PROCEDURE: Chest W INDICATIONS: MANTLE CELL LYMPHOMA CONTRAST: 100ml omni 300 TECHNIQUE: After the administration of intravenous contrast, a CT scan of the chest was performed. Images were recorded and evaluated at appropriate window settings. Reformats: axial MIP of the chest, coronal and sagittal. For radiation dose reduction, the following was used: automated exposure control, adjustme nt of mA and/or kV according to patient size. COMPARISON: CT chest 03/04/2023, 08/16/2022. FINDINGS: Image quality: Diagnostic. Chest wall and lower neck: No thyroid nodule which requires sonographic follow up. No axillary or sup raclavicular adenopathy by size. Gynecomastia. Lungs and pleura: No consolidation. No pleural effusions. No pneumothorax. Groundglass pulmonary nodu le at the left apex measuring 0.5 cm, (4), unchanged since at least 2021. Mediastinum: Heart size is normal. Three-vessel coronary artery calcifications. No pericardial effusi on. No large vessel abnormality. No mediastinal adenopathy by size criteria. Bones: No aggressive osseous abnormality. Upper Abdomen: Unremarkable. IMPRESSION: 1. No new or enlarging pulmonary nodules. Left apex groundglass pulmonary nodule measuring 0.5 cm is unchanged. 2. No enlarged lymph nodes. Reviewed by: Ben Dawkins MD on 12/05/2023 11:47 AM PDT Approved by: Ben Dawkins MD on 12/05/2023 11:47 AM PDT Station ID: [id number]
--- NOTE | 2023-12-05 12:06 | CT Report ---
PROCEDURE: Abdomen/Pelvis W INDICATIONS: MANTLE CELL LYMPHOMA CONTRAST: 100ml omni 300 TECHNIQUE: After the administration of intravenous contrast, a CT scan of the abdomen and pelvis was performed. Images were recorded and evaluated at appropriate window settings. Reformats: coronal and sagittal. F or radiation dose reduction, the following was used: automated exposure control, adjustment of mA and /or kV according to patient size. COMPARISON: CT abdomen pelvis 03/04/2023, 08/16/2022. FINDINGS: Image quality: Diagnostic. Lower chest: Please see separately dictated same-day CT chest. Liver: No solid mass. Gallbladder and biliary tree: No radiopaque stones or wall thickening. No biliary dilation. Spleen: No splenomegaly. Pancreas: No pancreatic ductal dilation. Adrenals: No adrenal nodule. Kidneys and ureters: No hydronephrosis. No renal cystic lesion which requires follow up. No solid mas s. Stomach, bowel and peritoneum: No bowel distension. No pathologic free fluid. Lymph nodes: No central or retroperitoneal adenopathy. Vessels: No infrarenal aortic aneurysm. Minimal ectasia. Extensive calcified plaque. Stent at the lef t common iliac artery. Scarring groin clips. Proximal femoral arteries do not opacify with contrast a s before. PELVIS Reproductive organs: Unremarkable. Bladder: No abnormal wall thickening, accounting for underdistention. Pelvic lymph nodes: No pelvic adenopathy by size criteria. Bones: No aggressive osseous abnormality. Right hip arthroplasty. Severe left hip DJD. Undulation at the left femoral head which is new. Other: No significant ventral. Fat-containing left internal hernia. Left groin seroma/hematoma is ess entially resolved. Subcutaneous edema adjacent to the hips. IMPRESSION: 1. No adenopathy. No splenomegaly. 2. New soft tissue thickening about the left hip. This could represent pseudotumor, edema, or joint e ffusion. New lucency at the left femoral head which could represent subchondral collapse or avascular necrosis. Low suspicion for neoplastic lesion. Difficult to exclude infectious process. Recommend cl inical correlation. 3. Left common iliac artery stent. Occlusion of the proximal femoral arteries as before. Preliminary results called to office of Dr. León at time of dictation. Reviewed by: Ben Dawkins MD on 12/05/2023 12:05 PM PDT Approved by: Ben Dawkins MD on 12/05/2023 12:05 PM PDT Station ID: [id number]
== END 2023-12-05 08:07 | disposition home or self-care (01) ==
LOC: DI 08:06
PROVIDERS: ATTEND Internal Medicine
DX: C83.15 Mantle cell lymphoma, lymph nodes of inguinal region and lower limb (principal); C83.16 Mantle cell lymphoma, intrapelvic lymph nodes; R93.6 Abnormal findings on diagnostic imaging of limbs; I70.90 Unspecified atherosclerosis; R91.1 Solitary pulmonary nodule
CPT/HCPCS: 71260; 74177; Q9963; Q9967

== ENCOUNTER 2024-04-01 08:00 | Outpatient (CLI) | payer MEDICARE | END 2024-04-01 23:59 | disposition home or self-care (01) | LOC: LAB 08:00 | PROVIDERS: ATTEND Physician Assistant | DX: R39.9 Unspecified symptoms and signs involving the genitourinary system (principal) | CPT/HCPCS: 87077; 87086; 87181 ==

== ENCOUNTER 2024-04-15 14:49 | Outpatient (CLI) | payer MEDICARE ==
[2024-04-15 15:06] LABS: BASOPHILS # (AUTO) 0.1 10^3/uL (0.0-0.1); BASOPHILS % (AUTO) 0.8 %; EOSINOPHILS # (AUTO) 0.1 10^3/uL (0.0-0.7); EOSINOPHILS % (AUTO) 1.4 %; HCT - HEMATOCRIT 42.6 % (42.0-52.0); HGB - HEMOGLOBIN 14.5 g/dL (14.0-18.0); LYMPHOCYTES # (AUTO) 0.7 10^3/uL (1.5-3.5); LYMPHOCYTES % (AUTO) 11.5 %; MONOCYTES # (AUTO) 0.7 10^3/uL (0.0-1.0); MONOCYTES % (AUTO) 11.2 %; NEUTROPHILS # (AUTO) 4.8 10^3/uL (1.5-6.6); NEUTROPHILS % (AUTO) 74.9 %; PLT - PLATELET COUNT 184 10^3/uL (130-450); RED BLOOD COUNT 4.53 10^6/uL (4.70-6.10); RED CELL DISTRIBUTION WIDTH 12.6 % (12.0-15.0); WHITE BLOOD COUNT 6.4 x10^3/uL (4.8-10.8)
[2024-04-15 15:22] LABS: CALCIUM 9.5 mg/dL (8.5-10.3); CREATININE 0.6 mg/dL (0.6-1.3); POTASSIUM 3.5 mmol/L (3.5-4.5)
[2024-04-15 16:11] LABS: PSA TOTAL 0.686 ng/mL (0.000-2.000)
[2024-04-16 08:39] LABS: BILIRUBIN,URINE NEGATIVE (NEGATIVE); GLUCOSE, URINE (UA) NEGATIVE (NEGATIVE); KETONES,URINE (UA) NEGATIVE (NEGATIVE); LEUKOCYTE ESTERASE, URINE TRACE (NEGATIVE); NITRITE,URINE NEGATIVE (NEGATIVE); OCCULT BLOOD,URINE NEGATIVE (NEGATIVE); PH,URINE 7.5 PH (5.0-7.5); PROTEIN,URINE NEGATIVE (NEGATIVE); UROBILINOGEN,URINE 0.2 (NORMAL) E.U./dL (NORMAL)
[2024-04-16 08:53] LABS: BACTERIA,URINE Rare /HPF (None Seen); CLARITY,URINE CLEAR (CLEAR); RBC,URINE 0-5 /HPF (0-5); SQUAMOUS EPITHELIAL CELL,UR RARE Squamous (<= Few)
== END 2024-04-15 14:50 | disposition home or self-care (01) ==
LOC: LAB 14:49
PROVIDERS: ATTEND Internal Medicine
DX: Z01.818 Encounter for other preprocedural examination (principal); D64.9 Anemia, unspecified; I48.91 Unspecified atrial fibrillation; M25.559 Pain in unspecified hip; E78.5 Hyperlipidemia, unspecified; I10 Essential (primary) hypertension; C85.90 Non-Hodgkin lymphoma, unspecified, unspecified site; M19.90 Unspecified osteoarthritis, unspecified site; I77.9 Disorder of arteries and arterioles, unspecified; E02 Subclinical iodine-deficiency hypothyroidism; N39.0 Urinary tract infection, site not specified
CPT/HCPCS: 36415; 80048; 81001; 84153; 85025; 87086

== ENCOUNTER 2024-09-13 02:29 | Inpatient (IN) ==
--- NOTE | 2024-09-13 02:52 | ED Physician Documentation ---
History of Present Illness Stated complaint Stated Complaint: SOA/SHAKING/RASH ON ABD Chief complaint Chief Complaint: Resp History obtained from History obtained from: Patient and Family History of Present Illness Timing: Prior to arrival Additonal information Additional information: Dale Bonilla is a 74-year-old male with a history of atrial fibrillation pers istent and peripheral vascular disease as well as hypertension. He has developed fever and chills tonight and is brought to the hospital by his . She has not been able to note any other specific abnormality that he has had symptom thorne. He indicates to me that he has had a cough that started this morning. He denies any urinary symptoms. He states he just feels chilled. He has had similar presentation previously and required a 10 day admission to [facility] in [place]. Sriram Coma Scale Assess Eye opening: Spontaneous Verbal response: Oriented Motor response: Obeys Commands Total score: 15 Review of Systems Constitutional Reports: Fatigue, Chills, Malaise, Weakness and Diaphoresis Ears, nose, mouth, and throat Denies: Neck pain Cardiovascular Reports: shortness of breath with exertion; Denies: chest pain Respiratory Reports: Shortness of breath and Cough; Denies: Sputum production Gastrointestinal Denies: Abdominal pain, Nausea, Vomiting, Diarrhea or Constipation Genitourinary Denies: Painful urination, Flank pain, Urinary frequency or Urinary urgency Musculoskeletal Denies: Back pain or Neck pain Integumentary/Breast Reports: Rash Neurological Reports: General weakness; Denies: Headache or Focal weakness Endocrine Reports: Fatigue Meds/Allgy Home Medications Ambulatory Orders Medication Instructions Recorded Confirmed dabigatran etexilate 150 mg 150 mg PO BID 05/18/19 06/01/24 capsule (Pradaxa) lisinopril 20 mg tablet 5 mg PO DAILY 05/18/19 06/01/24 simvastatin 40 mg tablet 40 mg PO DAILY PM 05/18/19 06/01/24 ferrous gluconate 240 mg (27 mg 65 mg PO DAILY 06/17/19 06/01/24 iron) tablet multivitamin 1 cap PO DAILY 07/09/19 06/01/24 cholecalciferol (vitamin D3) 25 25 mcg PO DAILY 02/06/21 06/01/24 mcg (1,000 unit) capsule cyanocobalamin (vitamin B-12) 1,000 mcg PO DAILY 02/06/21 06/01/24 1,000 mcg capsule docusate sodium 100 mg capsule 100 mg PO BID 10/27/22 06/01/24 (Stool Softener) aspirin 81 mg tablet,delayed 81 mg PO QDAY 06/01/24 06/01/24 release Allergies Allergies Allergy/AdvReac Type Severity Reaction Status Date / Time Sulfa (Sulfonamide Allergy Unknown Verified 09/13/24 02:52 Antibiotics) FOR[facility]LY [facility] Social History Social History Smoking Status: Former smoker If you are a former smoker, when did you quit? (Date/Year): 03/2000 Do you dip or chew tobacco?: No Do you vape?: No Living arrangement: At home Living Condition: With spouse/s.o. Relationship: Home Mobility Equipment: Cane Do you feel safe in your home environment?: Yes Suffered physical, verbal, emotional, or financial abuse?: No History of Abuse: No Frequency: Occasional POLST Patient has POLST: No Exam Exam Bearded 74-year-old male appears apprehensive on loading onto the gurney. He is shaking like he has chills. The patient is a large male at 116 kg and 5 feet 10 inches vital signs show blood pressure 110/78 pulse of 92 respirations of 17 and O2 saturation of 96% Constitutional Shaking chills is evident on examination. HENMT normocephalic, head/scalp atraumatic and hearing grossly normal bilaterally Eyes PERRL and EOMs intact bilaterally Neck/C-Spine visual inspection normal and trachea midline Respiratory breath sounds equal bilaterally, normal respiratory effort and clear to auscultation bilaterally Breath sounds are diminished bilaterally Cardiovascular normal heart rate noted, rhythm abnormal (irregular) and murmur noted (systolic) and (II/) Gastrointestinal abdomen normal to inspection, abdomen soft to palpation and nontender to palpation Genitourinary no CVA tenderness and bladder normal to palpation Back/Pelvis spine normal to inspection Extremities There is post inflammatory hyperpigmentation of the lower extremities bilaterally worse on the right than the left. He does have some venous stasis disease as well. Neurology yard switcher II-XII intact Psychiatry mental status grossly normal Skin rash noted (There is a reticular rash to the abdomen on the right side) Results Vitals Vitals: Vital Signs - 24 hr 09/13/24 02:40 09/13/24 03:31 09/13/24 04:19 Temperature 37.9 C 37.7 C Temperature Source Oral Oral Pulse Rate 106 H 92 121 H Respiratory Rate 24 17 14 Blood Pressure 140/82 H 110/70 107/70 O2 Saturation 96 96 98 O2 Source Room air Room air Room air Pain Intensity 0 0 0 09/13/24 04:30 09/13/24 04:45 09/13/24 04:55 Temperature 37.7 C Temperature Source Temporal Artery Scan Pulse Rate 108 H 120 H Respiratory Rate 19 19 Blood Pressure 106/59 L 100/58 L O2 Saturation 96 95 O2 Source Room air Room air Pain Intensity 0 3 3 09/13/24 05:00 09/13/24 06:12 09/13/24 06:30 Temperature Temperature Source Pulse Rate 112 H 96 102 H Respiratory Rate 17 18 18 Blood Pressure 93/44 L 89/44 L O2 Saturation 94 99 98 O2 Source Room air Room air Pain Intensity 0 0 2 09/13/24 07:00 09/13/24 07:27 09/13/24 07:30 Temperature 38.6 C H 38.6 C H Temperature Source Temporal Artery Scan Pulse Rate 102 H 100 Respiratory Rate 16 19 Blood Pressure 78/46 L 74/39 L O2 Saturation 97 100 O2 Source Room air Room air Pain Intensity 3 0 0 09/13/24 08:00 09/13/24 08:25 09/13/24 08:49 Temperature Temperature Source Pulse Rate 101 H 102 H 94 Respiratory Rate 19 18 Blood Pressure 75/43 L 107/66 111/59 L O2 Saturation 100 93 O2 Source Room air Room air Pain Intensity 0 0 09/13/24 08:55 09/13/24 09:30 09/13/24 10:00 Temperature Temperature Source Pulse Rate 105 H 102 H 102 H Respiratory Rate 13 19 Blood Pressure 113/63 94/58 L 95/65 O2 Saturation 95 96 O2 Source Room air Room air Pain Intensity 0 Oxygen O2 Source Room air Labs Labs: Laboratory Tests 09/13/24 09/13/24 09/13/24 03:14 04:08 05:06 WBC 9.2 RBC 4.83 Hgb 14.6 Hct 43.1 MCV 89.2 MCH 30.2 MCHC 33.9 RDW 14.8 Plt Count 152 MPV 9.4 Neut # (Auto) 7.7 H Lymph # (Auto) 0.8 L Knott # (Auto) 0.5 Eos # (Auto) 0.2 Baso # (Auto) 0.0 Absolute Nucleated RBC 0.00 Nucleated RBC % 0.0 Sodium 135 Potassium 3.3 L Chloride 94 L Carbon Dioxide 33 H Anion Gap 8.0 BUN 23 H Creatinine 0.9 Estimated GFR (MDRD) 82 L Glucose 114 H Lactic Acid 2.3 H Calcium 9.0 Total Bilirubin 0.5 AST 13 ALT 17 Alkaline Phosphatase 67 Total Protein 6.1 L Albumin 4.2 Globulin 1.9 L Albumin/Globulin Ratio 2.2 Urine Color YELLOW Urine Clarity CLEAR Urine pH 6.5 Ur Specific [place] 1.020 Urine Protein NEGATIVE Urine Glucose (UA) NEGATIVE Urine Ketones NEGATIVE Urine Occult Blood NEGATIVE Urine Nitrite NEGATIVE Urine Bilirubin NEGATIVE Urine Urobilinogen 0.2 (NORMAL) Ur Leukocyte Esterase NEGATIVE Urine RBC 0-5 Urine WBC 0-3 Ur Squamous Epith Cells MOD Squamous H Urine Bacteria Few Urine Culture Comments NOT INDICATED Nasal Adenovirus (PCR) NOT DETECTED Nasal B. parapertussis DNA (PCR) NOT DETECTED Nasal Coronavir 229E PCR NOT DETECTED Nasal Coronavir HKU1 PCR NOT DETECTED Nasal Coronavir NL63 PCR NOT DETECTED Nasal Coronavir OC43 PCR NOT DETECTED Nasal Enterovir/Rhinovir PCR NOT DETECTED Nasal Influenza B PCR NOT DETECTED Nasal Influenza A PCR NOT DETECTED Nasal Parainfluen 1 PCR NOT DETECTED Nasal Parainfluen 2 PCR NOT DETECTED Nasal Parainfluen 3 PCR NOT DETECTED Nasal Parainfluen 4 PCR NOT DETECTED Nasal RSV (PCR) NOT DETECTED Nasal B.pertussis DNA PCR NOT DETECTED Nasal C.pneumoniae (PCR) NOT DETECTED Esteban Human Metapneumo PCR NOT DETECTED Nasal M.pneumoniae (PCR) NOT DETECTED Nasal SARS-CoV-2 (PCR) NOT DETECTED 09/13/24 06:55 WBC RBC Hgb Hct MCV MCH MCHC RDW Plt Count MPV Neut # (Auto) Lymph # (Auto) Knott # (Auto) Eos # (Auto) Baso # (Auto) Absolute Nucleated RBC Nucleated RBC % Sodium Potassium Chloride Carbon Dioxide Anion Gap BUN Creatinine Estimated GFR (MDRD) Glucose Lactic Acid 2.2 Calcium Total Bilirubin AST ALT Alkaline Phosphatase Total Protein Albumin Globulin Albumin/Globulin Ratio Urine Color Urine Clarity Urine pH Ur Specific [place] Urine Protein Urine Glucose (UA) Urine Ketones Urine Occult Blood Urine Nitrite Urine Bilirubin Urine Urobilinogen Ur Leukocyte Esterase Urine RBC Urine WBC Ur Squamous Epith Cells Urine Bacteria Urine Culture Comments Nasal Adenovirus (PCR) Nasal B. parapertussis DNA (PCR) Nasal Coronavir 229E PCR Nasal Coronavir HKU1 PCR Nasal Coronavir NL63 PCR Nasal Coronavir OC43 PCR Nasal Enterovir/Rhinovir PCR Nasal Influenza B PCR Nasal Influenza A PCR Nasal Parainfluen 1 PCR Nasal Parainfluen 2 PCR Nasal Parainfluen 3 PCR Nasal Parainfluen 4 PCR Nasal RSV (PCR) Nasal B.pertussis DNA PCR Nasal C.pneumoniae (PCR) Esteban Human Metapneumo PCR Nasal M.pneumoniae (PCR) Nasal SARS-CoV-2 (PCR) Rads (name of study) Chest: Relevant Findings:: Final report received and EMP independent interpretation of test (No obvious abnormal) Interpretation: Impression: Cardiomegaly. No focal infiltrate, pleural effusion or pneum othorax. Findings are concordant with preliminary interpretation provided by [facility]. PD Medical Decision Making ED course Complexity details: reviewed old records, reviewed results, re-evaluated patient, considered differential, d/w patient and d/w family Reviewed Lab Results: We reviewed a complete blood count showing a normal white blood cell count of 9.2 normal hemoglobin hematocrit platelets and indices the differential shows an elevated neutrophil count chemistries show serum sodium 135 potassium of 3.3 carbon dioxide of 33 BUN is elevated at 23 lactic acid is elevated at 2.3 liver functions are normal. These laboratory values do not pain an overwhelming picture and are not consistent with the distress the patient is exhibiting. He does have elevation in the lactate consistent with sepsis he has a presentation consistent with sepsis and he is improving with the fluid we have given him resulting in lowering of his lactate to 2.2 and further to 1.6. ED course: The patient presented to the emergency department with fever and tachycardia with a blood pressure of 107/70. He was flagged immediately for sepsis based on his chills confusion prior history fever and tachycardia. He was immediately administered intravenous saline and with no obvious source he was administered vancomycin, metronidazole and cefepime as well as Tylenol. He continued to have chills and intermittently tachycardia and developed soft blood pressures eventually a MAP of 50 triggered norepinephrine with improvement in his pressure given to her peripheral vein. We consulted anesthesia who graciously came to [facility] emergency department to place a central line. The patient had vacillating confusion and periodic shaking. At shift change his care was turned over to Dr. Plasencia anticipating a bed becoming available here or transferred to another facility. Discharge Plan Discharge Prescriptions: No Action lisinopril 20 MG tablet 5 mg PO DAILY simvastatin 40 MG tablet 40 mg PO DAILY PM dabigatran etexilate [Pradaxa] 150 MG capsule 150 mg PO BID ferrous gluconate 240 MG tablet 65 mg PO DAILY multivitamin 1 EACH capsule 1 cap PO DAILY cholecalciferol (vitamin D3) 25 MCG capsule 25 mcg PO DAILY cyanocobalamin (vitamin B-12) 1,000 MCG capsule 1,000 mcg PO DAILY docusate sodium [Stool Softener] 100 MG capsule 100 mg PO BID aspirin 81 mg tablet,delayed release (DR/EC) 81 mg PO QDAY Print Language: Swedish Stand Alone Forms: PCP List
[2024-09-13] MEDS ORDERED: CEFEPIME 2 GM VIAL ONE (03:20)
[2024-09-13 03:21] LABS: BASOPHILS % (AUTO) 0.4 %; EOSINOPHILS # (AUTO) 0.2 10^3/uL (0.0-0.7); EOSINOPHILS % (AUTO) 2.5 %; HCT - HEMATOCRIT 43.1 % (42.0-52.0); HGB - HEMOGLOBIN 14.6 g/dL (14.0-18.0); LYMPHOCYTES # (AUTO) 0.8 10^3/uL (1.5-3.5); LYMPHOCYTES % (AUTO) 8.3 %; MEAN CORPUSCULAR HEMOGLOBIN 30.2 pg (27.0-31.0); MEAN CORPUSCULAR HGB CONC 33.9 g/dL (32.0-36.0); MEAN CORPUSCULAR VOLUME 89.2 fL (80.0-94.0); MEAN PLATELET VOLUME 9.4 fL (7.4-11.4); MONOCYTES # (AUTO) 0.5 10^3/uL (0.0-1.0); MONOCYTES % (AUTO) 5.3 %; NEUTROPHILS # (AUTO) 7.7 10^3/uL (1.5-6.6); NEUTROPHILS % (AUTO) 83.2 %; PLT - PLATELET COUNT 152 10^3/uL (130-450); RED BLOOD COUNT 4.83 10^6/uL (4.70-6.10); RED CELL DISTRIBUTION WIDTH 14.8 % (12.0-15.0); WHITE BLOOD COUNT 9.2 x10^3/uL (4.8-10.8)
[2024-09-13] MEDS: SODIUM CHLORIDE 0.9% 1,000 ML IV STA ×6 (03:26→20:06)
[2024-09-13] MEDS: CEFEPIME 2 GM in SODIUM CHLORIDE 0.9% MINIBAG 100 ML IV STA (03:26)
[2024-09-13 03:33] LABS: ALBUMIN 4.2 g/dL (3.2-5.5); ALBUMIN/GLOBULIN RATIO 2.2 (1.0-2.2); BILIRUBIN,TOTAL 0.5 mg/dL (0.2-1.0); CREATININE 0.9 mg/dL (0.6-1.3); LACTIC ACID, VENOUS 2.3 mmol/L (0.5-2.2); POTASSIUM 3.3 mmol/L (3.5-4.5); TOTAL PROTEIN 6.1 g/dL (6.4-8.9)
[2024-09-13] MEDS: metroNIDAZOLE 500 MG/100 ML 500 MG/100 ML BAG IV STA (04:07)
[2024-09-13 04:13] LABS: BILIRUBIN,URINE NEGATIVE (NEGATIVE); GLUCOSE, URINE (UA) NEGATIVE (NEGATIVE); KETONES,URINE (UA) NEGATIVE (NEGATIVE); LEUKOCYTE ESTERASE, URINE NEGATIVE (NEGATIVE); NITRITE,URINE NEGATIVE (NEGATIVE); OCCULT BLOOD,URINE NEGATIVE (NEGATIVE); PH,URINE 6.5 PH (5.0-7.5); PROTEIN,URINE NEGATIVE (NEGATIVE); UROBILINOGEN,URINE 0.2 (NORMAL) E.U./dL (NORMAL)
[2024-09-13 04:21] LABS: CLARITY,URINE CLEAR (CLEAR)
[2024-09-13 04:23] LABS: BACTERIA,URINE Few /HPF (None Seen); RBC,URINE 0-5 /HPF (0-5); SQUAMOUS EPITHELIAL CELL,UR MOD Squamous (<= Few); WBC,URINE 0-3 /HPF (0-3)
[2024-09-13] MEDS ORDERED: VANCOMYCIN 1 GM VIAL ONE (04:32)
[2024-09-13] MEDS: VANCOMYCIN INJ 2.5 GM in SODIUM CHLORIDE 0.9% 500 ML IV STA (04:42)
[2024-09-13] MEDS: ACETAMINOPHEN 325 MG TABLET PO STA (04:45)
[2024-09-13] MEDS: DEXAMETHASONE 10 MG/ML VIAL IVP STA (05:15)
[2024-09-13 06:16] LABS: B. PARAPERTUSSIS- RESP PCR PAN NOT DETECTED; B. PERTUSSIS- RESP PCR PANEL NOT DETECTED; C. PNEUMONIAE- RESP PCR PANEL NOT DETECTED; CORONAVIRUS 229E-RESP PCR NOT DETECTED; CORONAVIRUS HKU1-RESP PCR NOT DETECTED; CORONAVIRUS NL63-RESP PCR NOT DETECTED; CORONAVIRUS OC43-RESP PCR NOT DETECTED; HUMAN METAPNEUMOVIRUS NOT DETECTED; INFLUENZA A- RESP PCR PANEL NOT DETECTED; INFLUENZA B - RESP PCR PANEL NOT DETECTED; M. PNEUMONIAE- RESP PCR PANEL NOT DETECTED; PARAINFLUENZA VIRUS 1 NOT DETECTED; PARAINFLUENZA VIRUS 2 NOT DETECTED; PARAINFLUENZA VIRUS 4 NOT DETECTED; RHINOVIRUS/ENTEROVIRUS NOT DETECTED; RSV- RESP PCR PANEL NOT DETECTED; SARS-CoV-2 -RESP PCR PANEL NOT DETECTED
[2024-09-13] MEDS: SODIUM CHLORIDE 0.9% 500 ML IV ONE (06:17)
[2024-09-13 07:13] LABS: LACTIC ACID, VENOUS 2.2 mmol/L (0.5-2.2)
[2024-09-13] MEDS: VANCOMYCIN INJ 3 GM in SODIUM CHLORIDE 0.9% 500 ML IV STA (07:28)
[2024-09-13] MEDS: NOREPINEPHRINE/0.9 % NS 8 MG/250 ML BAG IV SCH (08:32)
--- NOTE | 2024-09-13 08:32 | XRAY Report ---
PROCEDURE: XR Chest 1V INDICATIONS: Sepsis TECHNIQUE: One view of the chest was acquired. COMPARISON: 10/27/2022. FINDINGS: Surgical changes and devices: None. Lungs and pleura: No pleural effusions or pneumothorax. No consolidation. Mediastinum: Mediastinal contours appear normal. Heart size is enlarged. Bones and chest wall: No suspicious bony lesions. Overlying soft tissues appear unremarkable. IMPRESSION: Cardiomegaly. No focal infiltrate, pleural effusion or pneumothorax. Findings are concordant with preliminary interpretation provided by [facility]. Reviewed by: Walter Gilliland MD on 09/13/2024 8:31 AM PST Approved by: Walter Gilliland MD on 09/13/2024 8:31 AM PST Station ID: [id number]
[2024-09-13] MEDS ORDERED: NOREPINEPHRINE/0.9 % NS 8 MG/250 ML BAG IV SCH (09:00)
[2024-09-13] MEDS ORDERED: iohexoL-300 100 ML VIAL ONE (09:46)
--- NOTE | 2024-09-13 10:17 | ANESTHESIA PROCEDURE NOTE ---
Anesth Central Line Template Central Line Procedure Date: 09/13/24 Central Line Preparation: Consent Obtained, Time out completed, Ultrasound used and Sterile prep and drape Central line location: Right IJ Central line type: Triple lumen Central line catheter tip site resides: Superior vena cava (SVC) Central line aftercare: Secured, Placement confirmed, No pneumothorax, No complications, Bundle checklist complete and Pt tolerated well Other Info/Details: 20cm cath, placed at 19cm (secured). Easily aspirates and flushes with caps. Patient tolerated procedure without complaint. Placement confirmed with PCXR
--- NOTE | 2024-09-13 10:36 | XRAY Report ---
PROCEDURE: XR Chest for Line Placement INDICATIONS: new CVL at R IJ TECHNIQUE: One view of the chest was acquired. COMPARISON: Earlier on 09/13/2024. FINDINGS: Surgical changes and devices: Right IJ line tip apex to the SVC right atrial junction Lungs and pleura: No pleural effusions or pneumothorax. No consolidation. Mediastinum: Mediastinal contours appear normal. Heart size is normal. Bones and chest wall: No suspicious bony lesions. Overlying soft tissues appear unremarkable. IMPRESSION: No pneumothorax post placement of a right IJ line. Reviewed by: Sherman Navarro MD on 09/13/2024 10:35 AM PST Approved by: Sherman Navarro MD on 09/13/2024 10:35 AM PST Station ID: [id number]
[2024-09-13] MEDS: iohexoL-300 100 ML VIAL IVP ONE (10:55)
--- NOTE | 2024-09-13 11:02 | CT Report ---
PROCEDURE: CT Chest W INDICATIONS: sepsis, unknown source CONTRAST: Omni 300 100ml TECHNIQUE: After the administration of intravenous contrast, a CT scan of the chest was performed. Images were recorded and evaluated at appropriate window settings. Reformats: axial MIP of the chest, coronal and sagittal. For radiation dose reduction, the following was used: automated exposure control, adjustme nt of mA and/or kV according to patient size. COMPARISON: 12/05/2023. FINDINGS: Image quality: Diagnostic. Chest wall and lower neck: No thyroid nodule which requires sonographic follow up. No breast mass. No axillary or supraclavicular adenopathy by size. Lungs and pleura: No consolidation. No pleural effusions. No pneumothorax. Stable 5 mm groundglass o pacity, left apex, current image 21 of series 4 and previous image 16 of series 4. Mediastinum: Heart size is normal. No pericardial effusion. Severe left main coronary artery calcific ations with triple vessel calcifications as well. No large vessel abnormality. No mediastinal adenopa thy by size criteria. Bones: No aggressive osseous abnormality. Upper Abdomen: Unremarkable. IMPRESSION: 1. No acute pulmonary process noted. 2. Stable 5 mm groundglass opacity, left apex. 3. Significant coronary artery atherosclerotic calcifications, including relatively dense left main c oronary artery calcifications and triple vessel calcifications. Please refer to separate report for findings in the abdomen and pelvis. Reviewed by: Sherman Navarro MD on 09/13/2024 11:00 AM PST Approved by: Sherman Navarro MD on 09/13/2024 11:00 AM PST Station ID: [id number]
--- NOTE | 2024-09-13 11:09 | CT Report ---
PROCEDURE: CT Abdomen/Pelvis W INDICATIONS: sepsis, unknown source CONTRAST: Omni 300 100ml TECHNIQUE: After the administration of intravenous contrast, a CT scan of the abdomen and pelvis was performed. Images were recorded and evaluated at appropriate window settings. Reformats: coronal and sagittal. F or radiation dose reduction, the following was used: automated exposure control, adjustment of mA and /or kV according to patient size. COMPARISON: CT chest from today, CT abdomen and pelvis dated 12/05/2023. FINDINGS: Image quality: Diagnostic. Lower chest: Coronary artery calcifications including left main coronary artery calcifications and tr iple vessel calcifications.. Liver: No solid mass. Gallbladder: No radiopaque stones or wall thickening. Biliary tree: No intrahepatic or extrahepatic dilation, accounting for age. Spleen: No splenomegaly. Pancreas: No pancreatic ductal dilation. Adrenals: No adrenal nodule. Kidneys and ureters: No hydronephrosis. No renal cystic lesion which requires follow up. No solid mas s. Stomach, bowel and peritoneum: No gastric or small bowel dilation. No abnormal wall thickening. No pa thologic free fluid. Lymph nodes: No central or retroperitoneal adenopathy. Vessels: No infrarenal aortic aneurysm. Patent portal vein. There is a left common iliac artery stent which appears to be patent. PELVIS Reproductive organs: Unremarkable. Bladder: No abnormal wall thickening, accounting for underdistention. Pelvic lymph nodes: No pelvic adenopathy by size criteria. Bones: No aggressive osseous abnormality. Interval total left hip arthroplasty. There are now bilater al total hip arthroplasties.. Other: There is a right inguinal hernia again noted. Currently, it contains nonobstructed sigmoid.. T here appears to be some edematous change anteriorly at the base of the penis. IMPRESSION: 1. There is a right inguinal hernia which currently contains nonobstructed sigmoid. 2. There is anterior edematous change at the base of the penis in the subcutaneous fat. 3. Coronary artery calcifications including left main coronary artery calcifications. 4. Interval total left hip arthroplasty. Reviewed by: Sherman Navarro MD on 09/13/2024 11:07 AM PST Approved by: Sherman Navarro MD on 09/13/2024 11:07 AM PST Station ID: [id number]
--- NOTE | 2024-09-13 11:28 | ED Physician Documentation ---
ED Addendum Addendum Addendum: EKG: time 0252 Atrial flutter with predominant 3:1 block, LBBB, ST elevation secondary to IVCD. SPT 07/17/21 rate has slowed. agree with computer. Discharge Plan Discharge Prescriptions: No Action lisinopril 20 MG tablet 5 mg PO DAILY simvastatin 40 MG tablet 40 mg PO DAILY PM dabigatran etexilate [Pradaxa] 150 MG capsule 150 mg PO BID ferrous gluconate 240 MG tablet 65 mg PO DAILY multivitamin 1 EACH capsule 1 cap PO DAILY cholecalciferol (vitamin D3) 25 MCG capsule 25 mcg PO DAILY cyanocobalamin (vitamin B-12) 1,000 MCG capsule 1,000 mcg PO DAILY docusate sodium [Stool Softener] 100 MG capsule 100 mg PO BID aspirin 81 mg tablet,delayed release (DR/EC) 81 mg PO QDAY Print Language: Wolof Stand Alone Forms: PCP List
[2024-09-13] MEDS ORDERED: CEFEPIME 2 GM VIAL IVP STA (14:07)
--- NOTE | 2024-09-13 14:29 | ED Physician Documentation ---
ED Addendum Addendum Addendum: The patient is actually doing much better through the morning and now early afternoon. He has been awake alert and conversant. His blood pressure has been adequate on the current medications and norepinephrine. This is being titrated down. If we are able to titrate down the norepinephrine to off with adequate blood pressure then the patient may be able to stay here. Currently we do not have ICU beds available and we have been looking for transfers. So far no other facilities at beds available yet. That patient does have some redness in the inguinal areas that looks like a yeast tinea cruris. There is some increased redness on the right side and some on the posterior scrotal sac but minimal tenderness. It does not appear like necrotizing fasciitis but more just cellulitis perhaps. The patient's blood cultures are actually showing positive already with gram-positive cocci. Identification to follow. It is present in 4 bottles so I am inclined to think true bacteremia rather than contaminants. He is on cefepime and vancomycin. At this point we can probably discontinue the Flagyl. The patient remained stable. Titrating down on the norepinephrine. Maintaining IV fluid hydration. Discharge Plan Discharge Prescriptions: No Action lisinopril 20 MG tablet 5 mg PO DAILY simvastatin 40 MG tablet 40 mg PO DAILY PM dabigatran etexilate [Pradaxa] 150 MG capsule 150 mg PO BID ferrous gluconate 240 MG tablet 65 mg PO DAILY multivitamin 1 EACH capsule 1 cap PO DAILY cholecalciferol (vitamin D3) 25 MCG capsule 25 mcg PO DAILY cyanocobalamin (vitamin B-12) 1,000 MCG capsule 1,000 mcg PO DAILY docusate sodium [Stool Softener] 100 MG capsule 100 mg PO BID aspirin 81 mg tablet,delayed release (DR/EC) 81 mg PO QDAY Print Language: Macanese Stand Alone Forms: PCP List
[2024-09-13] MEDS: ACETAMINOPHEN 325 MG TABLET PO SCH (15:00)
[2024-09-13] MEDS: VANCOMYCIN INJ 1.75 GM in SODIUM CHLORIDE 0.9% 500 ML IV SCH (15:23)
[2024-09-13] MEDS: CEFEPIME 2 GM VIAL IVP STA (15:47)
--- NOTE | 2024-09-13 16:25 | ED Physician Documentation ---
ED Addendum Addendum Addendum: Patient was taken off of Levophed briefly, blood pressure decreased to 78/51. Reviewed the chart, appears to have only received about 2-1/2 L of fluid over 12 hours, therefore 2 L will be bolused. Will recheck after the fluid bolus. Patient still continued to require a small amounts of norepinephrine to prevent hypotension. Suspect that he will be able to be weaned off this into tomorrow. A bed in the ICU did become available, so discussed the case with the hospitalist who graciously accepts for admission. This document was made in part using voice recognition software. While efforts are made to proofread this document, sound alike and grammatical errors may occur. Discharge Plan Discharge Patient Disposition: [facility] DC/Xfer Condition: Serious Clinical Impression: Skin infection, Gram-positive cocci bacteremia Sepsis Qualifiers: Sepsis type: sepsis due to unspecified organism Sepsis acute organ dysfunction status: unspecified Qualified Code(s): A41.9 - Sepsis, unspecified organism Hypotension Qualifiers: Hypotension type: unspecified hypotension type Qualified Code(s): I95.9 - Hypotension, unspecified Prescriptions: No Action lisinopril 20 MG tablet 5 mg PO DAILY simvastatin 40 MG tablet 40 mg PO DAILY PM dabigatran etexilate [Pradaxa] 150 MG capsule 150 mg PO BID ferrous gluconate 240 MG tablet 65 mg PO DAILY multivitamin 1 EACH capsule 1 cap PO DAILY cholecalciferol (vitamin D3) 25 MCG capsule 25 mcg PO DAILY cyanocobalamin (vitamin B-12) 1,000 MCG capsule 1,000 mcg PO DAILY chlorthalidone 25 mg tablet 25 mg PO DAILY Rx Instructions: Take one tablet by mouth once daily in the morning metoprolol succinate 50 mg tablet extended release 24 hr 50 mg PO BID aspirin 81 mg tablet,delayed release (DR/EC) 81 mg PO QDAY Print Language: Cook Islander
--- NOTE | 2024-09-13 21:08 | HISTORY & PHYSICAL EXAMINATION ---
Chief Complaint Chief Complaint Chief Complaint: fever and chills History of Present Illness Admitted From Admitted From:: home History Obtained From Records Reviewed: previous hospitalizations at History obtained from: Patient History of Present Illness HPI Comment/Other: 74-year-old man with a history of peripheral vascular disease hypertension atrial fibrillation on Pradaxa sleep apnea presented to the emergency department almost 20 hours ago with fever and shaking chills. He has noted a rash in his groin which has been getting a little bit worse recently. Otherwise he has been doing well. He has chronic problems with dribbling of urine on his groin area secondary to issues with retracting his foreskin. Was treated in the emergency department for sepsis syndrome. He has had 4-4 blood culture bottles positive for gram-positive cocci with PCR positive for Streptococcus species. Sensitivities are pending. He has been treated appropriately in the emergency department with cefepime and vancomycin. He was initially given Flagyl but this was discontinued. is his surrogate decision maker. Code status/POLST not discussed Meds/Allgy Home Medications Ambulatory Orders Medication Instructions Recorded Confirmed dabigatran etexilate 150 mg 150 mg PO BID 05/18/19 09/13/24 capsule (Pradaxa) lisinopril 20 mg tablet 5 mg PO DAILY 05/18/19 09/13/24 simvastatin 40 mg tablet 40 mg PO DAILY PM 05/18/19 09/13/24 ferrous gluconate 240 mg (27 mg 65 mg PO DAILY 06/17/19 09/13/24 iron) tablet multivitamin 1 cap PO DAILY 07/09/19 09/13/24 cholecalciferol (vitamin D3) 25 25 mcg PO DAILY 02/06/21 09/13/24 mcg (1,000 unit) capsule cyanocobalamin (vitamin B-12) 1,000 mcg PO DAILY 02/06/21 09/13/24 1,000 mcg capsule aspirin 81 mg tablet,delayed 81 mg PO QDAY 06/01/24 09/13/24 release chlorthalidone 25 mg tablet 25 mg PO DAILY 09/13/24 09/13/24 metoprolol succinate 50 mg 50 mg PO BID 09/13/24 09/13/24 tablet,extended release 24 hr Allergies Allergies Allergy/AdvReac Type Severity Reaction Status Date / Time Sulfa (Sulfonamide Allergy Unknown Verified 09/13/24 02:52 Antibiotics) [facility] Social History Social History Smoking Status: Former smoker If you are a former smoker, when did you quit? (Date/Year): 03/2000 Do you dip or chew tobacco?: No Do you vape?: No Living arrangement: At home Living Condition: With spouse/s.o. Relationship: Home Mobility Equipment: Cane Do you feel safe in your home environment?: Yes Suffered physical, verbal, emotional, or financial abuse?: No History of Abuse: No Frequency: Occasional POLST Patient has POLST: No Review of Systems Status of ROS: 10 or more systems reviewed and unremarkable except as noted in history and below Constitutional Reports: Fatigue, Fever, Chills and Malaise Eyes Denies: Vision loss Ears, nose, mouth, and throat Denies: Ear pain, Nasal discharge or Throat pain Cardiovascular Denies: Irregular heart rate, chest pain, palpitations, edema, swelling of feet/ankles or shortness of breath with exertion Respiratory Denies: Shortness of breath or Cough Gastrointestinal Denies: Abdominal pain, Abdominal distention, Nausea or Vomiting Genitourinary Reports: Urinary dribbling; Denies: Painful urination Musculoskeletal Denies: Extremity swelling, Gout or Joint pain Integumentary/Breast Reports: Rash and Other (Chronic groin rash) Neurological Denies: Headache or Abnormal gait Endocrine Reports: Fatigue Hematologic/Lymphatic Denies: Anemia or Easy bruising Allergic/Immunologic Denies: Hives Prior Level of Functionality: Lives with his . Ambulates with a cane. 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 Exam Constitutional normal general appearance and no apparent distress appears acutely ill HENMT normocephalic and external ears normal Eyes conjunctivae normal Neck/C-Spine visual inspection normal Lymph no lymphadenopathy noted Chest inspection of chest normal and palpation of chest normal Respiratory breath sounds equal bilaterally and normal respiratory effort Cardiovascular occasional tachycardia atrial fib Gastrointestinal abdomen normal to inspection, abdomen soft to palpation and nontender to palpation Genitourinary bladder normal to palpation penis retracted in foreskin, groin bilateral with erythematous scaling rash with crust. scrotum edematous and non tender without cellulitis. there is mild cellulitis in the folds of the groin. Bilateral fem artery cut downs are well healed. Extremities normal to inspection hemosiderin staining at the shins, non palpable right foot pulses, but skin is warm without rash/lesion. palpable left DP pulse without rash/lesion Neurology developmental specialist II-XII intact, no focal motor deficit noted, speech normal and GCS 15 Psychiatry mental status grossly normal, oriented x3, thought process normal and cooperative Skin see above, no rash noted elsewhere. Conclusion/Plan Problem List (1) Sepsis: Plan: Sepsis syndrome. Since presentation to the emergency department patient has had a blood pressure as low as 70s over 40s. This was sustained for a period of time. He has had elevated lactate, as high as 2.3 which is corrected to 1.6 with fluid resuscitation. However, his hypotension has not resolved despite adequate fluid resuscitation he is requiring Levophed. This has been weaned down to 2 mcg but is not able to be turned off at this time. I have discussed this patient with Dr. Garcia in the emergency department. I have accepted this patient for admission to the ICU due to his sepsis syndrome with bacteremia and hypotension requiring Levophed despite adequate fluid resuscitation. Qualifiers: Sepsis acute organ dysfunction status: unspecified Sepsis type: sepsis due to unspecified organism Qualified Code(s): A41.9 - Sepsis, unspecified organism (2) Gram-positive cocci bacteremia: Plan: likely strep bacteremia. PCR is positive for strep. He is currently being treated with vancomycin and cefepime. I will continue this antibiotic therapy. Will wait for speciation and sensitivities. Emergency department provider has discontinued the Flagyl at this time. (3) Hypotension: Plan: Secondary to sepsis syndrome. Being treated with Levophed at this time. Hopefully as bacteremia is adequately treated he will wean off Levophed and can then transfer out of the ICU to the floor where appropriate choice of antibiotic can be determined Qualifiers: Hypotension type: unspecified hypotension type Qualified Code(s): I95.9 - Hypotension, unspecified (4) Penis symptom or sign: Plan: Patient with chronic dribbling of urine which then results in tinea cruris infection which probably then has been secondarily infected with gram-positive bacteria which have caused septicemia. Probably worthwhile in the outpatient environment to consider urology consultation (5) Atrial fibrillation with rapid ventricular response: Plan: Atrial fibrillation with rapid ventricular response. EKG in the emergency department showed a flutter. Through treatment of his sepsis his heart rate has improved and is most recently less than 100. Will continue services heart rate and rhythm on telemetry. I will continue his anticoagulation with Pradaxa. (6) Anticoagulated: Plan: On Pradaxa for atrial fibs. Has been on this for years. Also has a history of peripheral vascular disease status post stenting we will continue anticoagulation if at all possible. Plan I have spent 80 minutes in the care of this patient today. This includes time [id number], review and ordering of diagnostic imaging and laboratory studies and consultation with other providers.. Monitoring the patient's signs symptoms, evaluation of medication effectiveness and patient's response to treatment. Lab Results 09/13/24 03:14 09/13/24 03:14
[2024-09-13] MEDS ORDERED: oxyCODONE 5 MG TABLET PO PRN (21:41)
[2024-09-13] MEDS ORDERED: ONDANSETRON ODT 4 MG TABLET TL PRN (21:41)
[2024-09-13] MEDS: ASPIRIN EC 81 MG TABLET PO SCH (22:22)
[2024-09-13] MEDS: APIXABAN 5 MG TABLET PO SCH (22:22)
[2024-09-13] MEDS: METOPROLOL SUCCINATE 50 MG TABLET PO SCH (22:22)
[2024-09-13] MEDS: CLOTRIMAZOLE/BETAMETHASONE 45 GM TUBE TOP SCH (22:23)
[2024-09-14] MEDS: SODIUM CHLORIDE FLUSH 0.9% 10 ML SYRINGE IVP SCH (04:02)
[2024-09-14] MEDS: SODIUM CHLORIDE FLUSH 0.9% 10 ML SYRINGE IVP PRN (04:02)
[2024-09-14] MEDS: CYANOCOBALAMIN 500 MCG TABLET PO SCH (08:11)
[2024-09-14] MEDS: CHOLECALCIFEROL 25 MCG TABLET PO SCH (08:11)
[2024-09-14] MEDS: CLOTRIMAZOLE/BETAMETHASONE 15 GM TUBE TOP SCH (09:54)
--- NOTE | 2024-09-14 12:16 | PHARMACY PROGRESS NOTE ---
Best Possible Medication History Admit Date and Time: 09/13/24 [id number] Home Medications Medication Instructions Recorded Confirmed Type dabigatran etexilate 150 mg 150 mg PO BID 05/18/19 09/13/24 History capsule (Pradaxa) simvastatin 40 mg tablet 40 mg PO DAILY PM 05/18/19 09/13/24 History ferrous gluconate 240 mg (27 mg 65 mg PO DAILY 06/17/19 09/13/24 History iron) tablet cholecalciferol (vitamin D3) 25 25 mcg PO DAILY 02/06/21 09/13/24 History mcg (1,000 unit) capsule cyanocobalamin (vitamin B-12) 1,000 mcg PO DAILY 02/06/21 09/13/24 History 1,000 mcg capsule aspirin 81 mg tablet,delayed 81 mg PO QDAY 06/01/24 09/13/24 History release metoprolol succinate 50 mg 50 mg PO BID 09/13/24 09/13/24 History tablet,extended release 24 hr chlorthalidone 50 mg tablet 50 mg PO ONCE 09/14/24 09/14/24 History lisinopril 5 mg tablet 5 mg PO ONCE 09/14/24 09/14/24 History multivitamin (Daily Multi-Vitamin 1 tab PO DAILY 09/14/24 09/14/24 History tablet) Processed by: Pharmacy Medications reviewed in ED?: Yes Medication History completed: Yes Patient Interview: Completed Secondary Source(s): Pharmacy records and Insurance records [facility] Statement: As the person ultimately responsible for medication therapy, providers are able to order a medication from an existing home medication list in [facility] via the "Reconcile Routine" prior to Confirmation of that medication by application support technician. Such practice is discouraged except when the physician, in their clinical judgment, deems that a medical need exists for a medication without regard to previous use.
--- NOTE | 2024-09-14 12:16 | PHARMACY PROGRESS NOTE ---
Best Possible Medication History Admit Date and Time: 09/13/24 [id number] Home Medications Medication Instructions Recorded Confirmed Type dabigatran etexilate 150 mg 150 mg PO BID 05/18/19 09/13/24 History capsule (Pradaxa) simvastatin 40 mg tablet 40 mg PO DAILY PM 05/18/19 09/13/24 History ferrous gluconate 240 mg (27 mg 65 mg PO DAILY 06/17/19 09/13/24 History iron) tablet cholecalciferol (vitamin D3) 25 25 mcg PO DAILY 02/06/21 09/13/24 History mcg (1,000 unit) capsule cyanocobalamin (vitamin B-12) 1,000 mcg PO DAILY 02/06/21 09/13/24 History 1,000 mcg capsule aspirin 81 mg tablet,delayed 81 mg PO QDAY 06/01/24 09/13/24 History release metoprolol succinate 50 mg 50 mg PO BID 09/13/24 09/13/24 History tablet,extended release 24 hr chlorthalidone 50 mg tablet 50 mg PO ONCE 09/14/24 09/14/24 History lisinopril 5 mg tablet 5 mg PO ONCE 09/14/24 09/14/24 History multivitamin (Daily Multi-Vitamin 1 tab PO DAILY 09/14/24 09/14/24 History tablet) Processed by: Pharmacy Medications reviewed in ED?: Yes Medication History completed: Yes Patient Interview: Completed Secondary Source(s): Pharmacy records and Insurance records [facility] Statement: As the person ultimately responsible for medication therapy, providers are able to order a medication from an existing home medication list in [facility] via the "Reconcile Routine" prior to Confirmation of that medication by it technical support specialist. Such practice is discouraged except when the physician, in their clinical judgment, deems that a medical need exists for a medication without regard to previous use.
[2024-09-14] MEDS: FUROSEMIDE 20 MG/2 ML VIAL IVP SCH (12:57)
[2024-09-14] MEDS: VANCOMYCIN INJ 1.5 GM in SODIUM CHLORIDE 0.9% 500 ML IV SCH (13:48)
--- NOTE | 2024-09-14 14:34 | PHARMACY PROGRESS NOTE ---
Vancomycin Therapy Monitoring Patient Information Vancomycin Pt Height (inches): 70 Vancomycin Patient Weight (kg): 120.5 Vanco Rx Serum Creatinine (mg/dL): 0.9 Vancomycin Therapy BUN (mg/dL): 23 Vancomycin Therapy Calculated Creatinine Cl (ml/min): 120 Concurrent Antibiotics: CEFEPIME 2G Q12H Vancomycin Therapy Goals Treatment Indication: Sepsis/Bacteremia Vancomycin Target Range: Vancomycin AUC Target Range 400-600 mcg*h/ml Assessment of Current Therapy Vancomycin Loading Dose (GM, if applicable): 2.5g Current Vancomycin Maintenance Regimen (if applicable): 1.5g q12h Estimated Cmax (Peak, mcg/ml): 29.3 Estimated Cmin (Trough, mcg/ml): 15.4 Estimated AUC (mcg*hr/ml): 521 Plan: Current Vancomycin Maintenance Regimen (if applicable): 1.5g q12h Pharmacy recommendation: Continue current regimen
[2024-09-14] MEDS: CEFEPIME 2 GM VIAL IVP SCH (15:01)
[2024-09-14] MEDS ORDERED: VANCOMYCIN INJ 1.5 GM in SODIUM CHLORIDE 0.9% 500 ML IV SCH (16:00)
[2024-09-14] MEDS: VANCOMYCIN INJ 1 GM, VANCOMYCIN INJ 500 MG in SODIUM CHLORIDE 0.9% 500 ML IV SCH (16:25)
[2024-09-14] MEDS: FUROSEMIDE 20 MG/2 ML VIAL IVP ONE ×2 (17:33→20:25)
[2024-09-14] MEDS: POTASSIUM CHLOR 20 MEQ/100 ML 20 MEQ/100 ML BAG IV ONE (17:35)
[2024-09-14] MEDS: METOPROLOL 5 MG/5 ML VIAL IVP STA (20:15)
[2024-09-14] MEDS ORDERED: FUROSEMIDE 20 MG/2 ML VIAL IVP ONE (20:23)
[2024-09-14] MEDS ORDERED: MORPHINE 2 MG/ML CARPUJECT ONE (20:23)
[2024-09-14 20:26] LABS: BASOPHILS % (AUTO) 0.2 %; EOSINOPHILS # (AUTO) 0.1 10^3/uL (0.0-0.7); EOSINOPHILS % (AUTO) 0.6 %; HCT - HEMATOCRIT 42.2 % (42.0-52.0); LYMPHOCYTES # (AUTO) 0.4 10^3/uL (1.5-3.5); LYMPHOCYTES % (AUTO) 2.2 %; MEAN CORPUSCULAR HEMOGLOBIN 29.9 pg (27.0-31.0); MEAN CORPUSCULAR HGB CONC 33.2 g/dL (32.0-36.0); MEAN CORPUSCULAR VOLUME 90.2 fL (80.0-94.0); MEAN PLATELET VOLUME 10.5 fL (7.4-11.4); MONOCYTES # (AUTO) 0.6 10^3/uL (0.0-1.0); MONOCYTES % (AUTO) 3.1 %; NEUTROPHILS # (AUTO) 17.1 10^3/uL (1.5-6.6); NEUTROPHILS % (AUTO) 91.9 %; PLT - PLATELET COUNT 105 10^3/uL (130-450); RED BLOOD COUNT 4.68 10^6/uL (4.70-6.10); RED CELL DISTRIBUTION WIDTH 15.8 % (12.0-15.0); WHITE BLOOD COUNT 18.6 x10^3/uL (4.8-10.8)
[2024-09-14] MEDS: MORPHINE 2 MG/ML CARPUJECT IVP ONE (20:27)
[2024-09-14] MEDS: METOPROLOL 5 MG/5 ML VIAL IVP SCH (20:34)
[2024-09-14 20:43] LABS: CREATININE 0.9 mg/dL (0.6-1.3); POTASSIUM 3.3 mmol/L (3.5-4.5)
--- NOTE | 2024-09-14 20:44 | PROVIDER PROGRESS NOTE ---
Subjective Prog Note Date Prog Note Date: 09/14/24 Subjective Subjective: Has been short of breath all day. has gotten several doses of lasix, but continues to complain that he cannot breathe. no chest pain or palpitation. heart rate has been high. he has been able to diurese, but does not seem to be improving Current Medications Current Medications Current Medications: Current Medications Generic Name Dose Route Start Last Admin Trade Name Freq PRN Reason Stop Dose Admin Acetaminophen 650 mg 09/13/24 15:00 09/14/24 17:33 Acetaminophen 325 Mg Tablet PO 650 mg QID MIMA Administration Acetaminophen 650 mg 09/13/24 21:41 Acetaminophen 325 Mg Tablet PO Q4HR PRN Pain 1 to 4, or Fever Apixaban 5 mg 09/13/24 23:00 09/14/24 08:11 Apixaban 5 Mg Tablet PO 5 mg BID MIMA Administration Aspirin 81 mg 09/13/24 21:41 09/14/24 08:10 Aspirin Ec 81 Mg Tablet PO 81 mg DAILY MIMA Administration Atorvastatin Calcium 20 mg 09/14/24 21:00 Atorvastatin 10 Mg Tablet PO HS MIMA Cefepime HCl 2 gm 09/14/24 15:00 09/14/24 15:01 Cefepime 2 Gm Vial IVP 2 gm Q12H MIMA Administration Cholecalciferol 25 mcg 09/14/24 09:00 09/14/24 08:11 Cholecalciferol 25 Mcg Tablet PO 25 mcg DAILY MIMA Administration Clotrimazole 1 applic 09/14/24 09:00 09/14/24 09:54 Clotrimazole/Betamethasone 15 Gm Tube TOP 1 applic BID MIMA Administration Cyanocobalamin 1,000 mcg 09/14/24 09:00 09/14/24 08:11 Cyanocobalamin 500 Mcg Tablet PO 1,000 mcg DAILY MIMA Administration Furosemide 20 mg 09/14/24 21:00 09/14/24 20:25 Furosemide 20 Mg/2 Ml Vial IVP 09/14/24 21:01 20 mg ONCE ONE Administration Vancomycin HCl 1 gm/ 500 mls @ 250 mls/hr 09/14/24 16:00 09/14/24 18:49 Vancomycin HCl 500 mg/ Sodium IV Infused Chloride Q12H MIMA Infusion Metoprolol Succinate 50 mg 09/13/24 21:41 09/14/24 08:11 Metoprolol Succinate 50 Mg Tablet PO 50 mg BID MIMA Administration Morphine Sulfate 2 mg 09/14/24 21:00 09/14/24 20:27 Morphine 2 Mg/Ml Carpuject IVP 09/14/24 21:01 2 mg ONCE ONE Administration Ondansetron HCl 4 mg 09/13/24 21:41 Ondansetron Odt 4 Mg Tablet TL Q6HR PRN Nausea / Vomiting Oxycodone HCl 5 mg 09/13/24 21:41 Oxycodone 5 Mg Tablet PO Q4HR PRN Pain 8 to 10 Sodium Chloride 10 ml 09/13/24 21:41 09/14/24 20:15 Sodium Chloride Flush 0.9% 10 Ml Syringe IVP 10 ml PRN PRN Administration NEEDED PER PROVIDER ORDERS Sodium Chloride 10 ml 09/14/24 01:00 09/14/24 17:33 Sodium Chloride Flush 0.9% 10 Ml Syringe IVP 10 ml 0100,0900,1700 MIMA Administration Objective Vital Signs/Intake & Output Reviewed Vital Signs: Yes Vital Signs: Vital Signs x48h Pulse Pulse Resp BP BP Pulse Ox O2 Flow Rate 09/14/24 20:22 108 H 129/92 H 09/14/24 20:15 127 H 136/86 H 09/14/24 20:08 118 H 24 136/86 H 93 09/14/24 20:02 157 H 24 147/107 H 93 09/14/24 19:00 128 H 17 131/93 H 96 09/14/24 18:00 107 H 26 H 146/107 H 93 2 09/14/24 17:00 137 H 33 H 143/99 H 94 2 09/14/24 16:00 143 H 39 H 129/75 97 2 09/14/24 15:00 110 H 30 H 110/61 97 2 09/14/24 14:00 102 H 25 H 120/84 98 2 09/14/24 13:00 100 33 H 127/102 H 97 2 Intake & Output: Intake & Output 09/11/24 09/12/24 09/13/24 09/14/24 23:59 23:59 23:59 23:59 Intake Total 7841 / 7841 1472 / 1472 Output Total 850 / 850 2125 / 2125 Balance 6991 / 6991 -653 / -653 Weight (kg) 120.5 kg Objective General Appearance: positive Moderate distress and Anxious Eyes Bilateral: positive Normal inspection and Conjunctivae nml (mild chemosis) ENT: positive ENT inspection nml Neck: positive Nml inspection and Trachea midline Respiratory: positive Other (decreased at bases with wheeze at mid lung gillette) Cardiovascular: positive Irregularly irregular and Tachycardia Abdomen: positive Non-tender and No distention Skin: positive Skin rash (erythema at groin and scrotum is not worse) Extremities: positive Non-tender and No pedal edema Neurologic/Psychiatric: positive Oriented x3 Lab Results 09/14/24 20:15 09/13/24 03:14 Other Labs: Lab Results x24hrs 09/14/24 09/13/24 Range/Units 20:15 22:00 WBC 18.6 H (4.8-10.8) x10^3/uL RBC 4.68 L (4.70-6.10) 10^6/uL Hgb 14.0 (14.0-18.0) g/dL Hct 42.2 (42.0-52.0) % MCV 90.2 (80.0-94.0) fL MCH 29.9 (27.0-31.0) pg MCHC 33.2 (32.0-36.0) g/dL RDW 15.8 H (12.0-15.0) % Plt Count 105 L (130-450) 10^3/uL MPV 10.5 (7.4-11.4) fL Neut # (Auto) 17.1 H (1.5-6.6) 10^3/uL Lymph # (Auto) 0.4 L (1.5-3.5) 10^3/uL [place] # (Auto) 0.6 (0.0-1.0) 10^3/uL Eos # (Auto) 0.1 (0.0-0.7) 10^3/uL Baso # (Auto) 0.0 (0.0-0.1) 10^3/uL Absolute Nucleated RBC 0.00 x10^3/uL Nucleated RBC % 0.0 /100WBC Nasal Screen MRSA (PCR) NEGATIVE (NEGATIVE) Diagnostic Imaging Diagnostic Imaging Comments: chest xr shows increased pulmonary congestion. Other Results/Comments Other Results/Comments: EKG is unchanged. ABX Reporting Has patient been on IV antibiotics over the past 48 hours?: Yes Assessment/Plan Problem List (1) Flash pulmonary edema: Impression: He has diuresed 2-1/2 L today through serial Lasix injections. However he has had acute onset of anxiety diaphoresis and shortness of breath this evening. His respiratory rate is increased he has decreased breath sounds at the bases with what sounds like cardiac wheeze in the mid lung gillette. He was acutely given 20 mg of Lasix 2 mg of morphine and 5 mg of metoprolol. His heart rate slowed somewhat down into the 110s. His blood pressure remained stable. In the 120s to 130s. Stat chest x-ray did show increasing pulmonary congestion. The central line looks to be in good position. No evidence on EKG of right heart strain. No ST elevation on EKG His troponin is 139 and his BNP is 632. His white blood cell count has increased to 18.6 and he remains with some mild hypokalemia at 3.3. His lactate is 2.0 I am trending troponins. I have ordered them for 2300 and 0 200 as well as in the AM. I will recheck BNP in the AM. (2) Sepsis: Impression: Sepsis syndrome. Since presentation to the emergency department patient has had a blood pressure as low as 70s over 40s. This was sustained for a period of time. He has had elevated lactate, as high as 2.3 which is corrected to 1.6 with fluid resuscitation. However, his hypotension has not resolved despite adequate fluid resuscitation he requiredLevophed. Overnight he was able to wean down off of Levophed and did fairly well through the course of the morning, however as the evening progressed he developed increasing pulmonary edema and shortness of breath with increased respiratory rate.See management above. Qualifiers: Sepsis acute organ dysfunction status: unspecified Sepsis type: sepsis due to unspecified organism Qualified Code(s): A41.9 - Sepsis, unspecified organism (3) Gram-positive cocci bacteremia: Impression: Repeat blood cultures with a.m. labs. We are treating with cefepime. Looks like beta-hemolytic strep. Likely secondary to infection in groin which does not appear to be clinically worsening. (4) Hypotension: Impression: Due to acute sepsis with. His hypotension has resolved and he weaned off Levophed early in the day. Qualifiers: Hypotension type: unspecified hypotension type Qualified Code(s): I95.9 - Hypotension, unspecified (5) Penis symptom or sign: Impression: Chronic tinea cruris which got worse leading to a cellulitis. (6) Atrial fibrillation with rapid ventricular response: Impression: Longstanding history of atrial fibrillation. He is on Eliquis and metoprolol 50 mg twice daily at home. We have been giving him metoprolol here in our ICU however with his period of critical illness have transitioned him onto a diltiazem drip for better heart rate control. (7) Anticoagulated: Impression: On Eliquis for atrial fibrillation. Also has significant peripheral vascular disease with critical stenosis in the right lower extremity. There are no wounds I have spent 50 minutes in the care of this patient today. This includes time [id number], review and ordering of diagnostic imaging and laboratory studies.. Monitoring the patient's signs symptoms, evaluation of medication effectiveness and patient's response to treatment. This patient has a degree of critical illness that is threatening one or more vital organ systems. There is a probability of life threatening deterioration of his condition. I spent 30 minutes of critical care time with this patient today. This included coordination of care, review and ordering of lab work, adjusting medications.
[2024-09-14] MEDS ORDERED: MORPHINE 2 MG/ML CARPUJECT IVP PRN (21:20)
[2024-09-14] MEDS: ATORVASTATIN 10 MG TABLET PO SCH (21:25)
--- NOTE | 2024-09-14 21:32 | XRAY Report ---
PROCEDURE: XR Chest 1V INDICATIONS: SOB TECHNIQUE: One view of the chest was acquired. COMPARISON: CT chest 09/13/2024. FINDINGS: Surgical changes and devices: Stable positioning of right IJ line tip projecting over the right atri um.. Lungs and pleura: No pleural effusions or pneumothorax. Low lung volumes with increased interstitial opacities. Hazy opacities left lung base. Mediastinum: Mediastinal contours appear normal. Heart size is normal. Aortic arch is calcified i ndicating atherosclerosis. Bones and chest wall: No suspicious bony lesions. Overlying soft tissues appear unremarkable. IMPRESSION: Low lung volumes with increasing additional opacities may represent mild pulmonary edema versus bibas ilar vascular crowding. Left base hazy opacities, may represent atelectasis versus aspiration. Pneumo nadia can be considered in the appropriate clinical setting. Reviewed by: Bertha Durham MD, PhD on 09/14/2024 9:31 PM PST Approved by: Bertha Durham MD, PhD on 09/14/2024 9:31 PM PST Station ID: [email or web address]
[2024-09-14 21:43] LABS: ABG BASE EXCESS -0.1 mmol/L (-2.0-3.0); ABG OXYGEN SATURATION 99 % (95-98); ABG PCO2 33 mmHg (34-45); ABG PH 7.46 (7.35-7.45); ABG PO2 165 mmHg (83-108); ABG TCO2 24.9 mmol/L (21.0-29.0); ALLEN TEST POSITIVE
[2024-09-14 21:44] LABS: ABG RESPIRATORY RATE 14 b/min
[2024-09-14] MEDS: NOREPINEPHRINE/0.9 % NS 8 MG/250 ML BAG IV SCH (22:10)
[2024-09-14] MEDS: diltiaZEM INJ 125 MG in DEXTROSE 5% 100 ML IV SCH (22:18)
[2024-09-14] MEDS: FUROSEMIDE INJ 100mg VIAL 100 MG in SODIUM CHLORIDE 0.9% 100ML 90 ML IV SCH (22:22)
[2024-09-14] MEDS: MEROPENEM 500 MG in SODIUM CHLORIDE 0.9% MINIBAG 100 ML IV SCH (22:36)
[2024-09-14] MEDS: LORazepam 2 MG/ML VIAL IVP PRN (22:46)
[2024-09-15 04:44] LABS: BASOPHILS % (AUTO) 0.2 %; EOSINOPHILS % (AUTO) 0.8 %; HGB - HEMOGLOBIN 13.9 g/dL (14.0-18.0); LYMPHOCYTES % (AUTO) 3.2 %; MEAN CORPUSCULAR HEMOGLOBIN 29.6 pg (27.0-31.0); MEAN CORPUSCULAR HGB CONC 33.1 g/dL (32.0-36.0); MEAN CORPUSCULAR VOLUME 89.6 fL (80.0-94.0); MEAN PLATELET VOLUME 10.4 fL (7.4-11.4); MONOCYTES % (AUTO) 4.4 %; NEUTROPHILS % (AUTO) 89.3 %; PLT - PLATELET COUNT 123 10^3/uL (130-450); RED BLOOD COUNT 4.69 10^6/uL (4.70-6.10); RED CELL DISTRIBUTION WIDTH 15.7 % (12.0-15.0); WHITE BLOOD COUNT 20.7 x10^3/uL (4.8-10.8)
[2024-09-15 04:50] LABS: ABNORMAL LYMPHS % (MANUAL) 0 %; CALCIUM, IONIZED 1.12 mmol/L (1.09-1.30); VBG PH 7.431 (7.31-7.41)
[2024-09-15 05:00] LABS: CALCIUM 8.2 mg/dL (8.5-10.3); CREATININE 0.9 mg/dL (0.6-1.3); POTASSIUM 2.9 mmol/L (3.5-4.5)
[2024-09-15 05:12] LABS: MAGNESIUM 1.5 mg/dL (1.7-2.3); PHOSPHORUS 2.2 mg/dL (2.5-5.0)
[2024-09-15 05:13] LABS: BAND NEUTROPHILS % (MANUAL) 5 %; DIFFERENTIAL COMMENT MANUAL DIFFERENTIAL; LYMPHOCYTES # (MANUAL) 0.4 10^3/uL (1.5-3.5); LYMPHOCYTES % (MANUAL) 2 %; NEUTROPHILS # (MANUAL) 19.3 10^3/uL (1.5-6.6); PLATELET ESTIMATE, MANUAL DECREASED (<130,000) (NORMAL); RBC MORPHOLOGY (MULTIPLE) NORMAL APPEARANCE (NORMAL); WBC MORPHOLOGY (MULTIPLE) NORMAL APPEARANCE (NORMAL)
[2024-09-15] MEDS: MAGNESIUM SULFATE 2 GRAM 2 GM/50 ML BAG IV ONE (05:57)
[2024-09-15] MEDS: POTASSIUM CHLOR 20 MEQ/100 ML 20 MEQ/100 ML BAG IV SCH (06:02)
[2024-09-15] MEDS: POTASSIUM PHOSPHATE 15 MMOL in SODIUM CHLORIDE 0.9% 250 ML IV ONE (08:06)
[2024-09-15] MEDS: FLUCONAZOLE 200 MG/100 ML 100 ML IV SCH (08:08)
[2024-09-15] MEDS ORDERED: GI COCKTAIL 120 ML BOTTLE PO PRN (10:18)
[2024-09-15] MEDS ORDERED: ACETAMINOPHEN 325 MG TABLET PO PRN (10:18)
[2024-09-15 15:14] LABS: VANCOMYCIN,TROUGH 19.3 ug/mL
[2024-09-15 15:15] LABS: MAGNESIUM 1.7 mg/dL (1.7-2.3); POTASSIUM 3.2 mmol/L (3.5-4.5)
[2024-09-15] MEDS: MAGNESIUM OXIDE 400 MG TABLET PO SCH (15:33)
[2024-09-15] MEDS: POTASSIUM CHLORIDE 20 MEQ TABLET PO SCH (15:33)
[2024-09-15] MEDS: NEUTRA-PHOS 250 MG TABLET PO SCH (15:33)
--- NOTE | 2024-09-15 15:36 | PHARMACY PROGRESS NOTE ---
Vancomycin Therapy Monitoring Patient Information Concurrent Antibiotics: MEROPENEM Vancomycin Therapy Goals Treatment Indication: BACTEREMIA Vancomycin Target Range: Vancomycin AUC Target Range 400-600 mcg*h/ml Plan: Vancomycin Loading Dose (GM, if applicable): 2.5GX1 Current Vancomycin Maintenance Regimen (if applicable): 1.39vP30J X2, Then 1.5gQ12H. Calculated AUC 598. Concerned about accumulation with age, decreasing dose to 1g q12h and timing out to 1800 for clearance and patient comfort/rest overnight Pharmacy recommendation: Decrease dose New Regimen (Enter new dose and interval): 1g Q12H Vancomycin Level Recommendation: Vancomycin Level Recommendation (after 4 or 5 doses of 1g Q12H)
--- NOTE | 2024-09-15 16:59 | PROVIDER PROGRESS NOTE ---
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 He was started on Lasix drip overnight. Fluconazole IV was added. This morning, WBC was elevated, so I escalated from cefepime to Merrem. On exam, patient is much improved. No acute distress. Blood cultures have since resulted as Streptococcus porcinus. I am working on getting him transferred to an outside facility as he will likely need DAMIAN To rule out endocarditis. Will consider de-escalation of antibiotics to Rocephin only once I hear back from infectious disease. Fluconazole has already been DC'd Subjective Prog Note Date Prog Note Date: 09/15/24 Prog Note Time: 13:57 Subjective Pt reports feeling: Improved Subjective: PT had a rough night last night with significant trouble breathing. He had a slow recovery this morning, but is feeling significantly better this afternoon at 14:23. He is fully alert but says that he is tired. He denies all pain, he denies shortness of breath but states that he is using a bit of extra effort to breathe. His was with him in the room and had multiple questions about the cause of the bacterimia. Current Medications Current Medications Current Medications: Current Medications Generic Name Dose Route Start Last Admin Trade Name Kiran PRN Reason Stop Dose Admin Acetaminophen 650 mg 09/13/24 21:41 Acetaminophen 325 Mg Tablet PO Q4HR PRN Pain 1 to 4, or Fever Apixaban 5 mg 09/13/24 23:00 09/15/24 08:07 Apixaban 5 Mg Tablet PO 5 mg BID MIMA Administration Aspirin 81 mg 09/13/24 21:41 09/15/24 08:07 Aspirin Ec 81 Mg Tablet PO 81 mg DAILY MIMA Administration Atorvastatin Calcium 20 mg 09/14/24 21:00 09/14/24 21:25 Atorvastatin 10 Mg Tablet PO 20 mg HS MIMA Administration Cholecalciferol 25 mcg 09/14/24 09:00 09/15/24 08:07 Cholecalciferol 25 Mcg Tablet PO 25 mcg DAILY MIMA Administration Clotrimazole 1 applic 09/14/24 09:00 09/15/24 08:08 Clotrimazole/Betamethasone 15 Gm Tube TOP 1 applic BID MIMA Administration Cyanocobalamin 1,000 mcg 09/14/24 09:00 09/15/24 08:07 Cyanocobalamin 500 Mcg Tablet PO 1,000 mcg DAILY MIMA Administration Vancomycin HCl 1 gm/ 500 mls @ 250 mls/hr 09/14/24 16:00 09/15/24 05:43 Vancomycin HCl 500 mg/ Sodium IV Infused Chloride Q12H MIMA Infusion Diltiazem HCl 125 mg/ Dextrose 125 mls @ 5 mls/hr 09/14/24 22:00 09/15/24 09:19 IV 0 mg/hr .Q25H MIMA 0 mls/hr Titration Protocol 5 MG/HR Furosemide 100 mg/ Sodium 100 mls @ 6.025 mls/hr 09/14/24 22:00 09/15/24 12:00 Chloride IV 0.02 mg/kg/hr .[id number] MIMA 2.41 mls/hr Titration Protocol 0.05 MG/KG/HR Norepinephrine/Sodium Chloride 8 mg in 250 mls @ 15 mls/hr 09/14/24 23:00 09/15/24 10:38 Levophed 8 Mg/250-0.9% Nacl IV 0 mcg/min .[id number] MIMA 0 mls/hr Titration Protocol 8 MCG/MIN Meropenem 500 mg/ Sodium 100 mls @ 200 mls/hr 09/14/24 23:00 09/15/24 07:32 Chloride IV Infused Q8H MIMA Infusion Fluconazole 100 mls @ 100 mls/hr 09/15/24 09:00 09/15/24 09:08 Diflucan 200 Mg/100 Ml IV Infused DAILY MIMA Infusion Lorazepam 0.5 mg 09/14/24 21:20 09/15/24 06:12 Lorazepam 2 Mg/Ml Vial IVP 0.5 mg Q2H PRN Administration Anxiety Morphine Sulfate 2 mg 09/14/24 21:20 Morphine 2 Mg/Ml Carpuject IVP Q2HR PRN Severe Pain (Level 7-10) Multi-Ingredient Mouthwash/Gargle 30 ml 09/15/24 10:18 Gi Cocktail 120 Ml Bottle PO Q4H PRN Abdominal Pain Ondansetron HCl 4 mg 09/13/24 21:41 Ondansetron Odt 4 Mg Tablet TL Q6HR PRN Nausea / Vomiting Oxycodone HCl 5 mg 09/13/24 21:41 Oxycodone 5 Mg Tablet PO Q4HR PRN Pain 8 to 10 Sodium Chloride 10 ml 09/13/24 21:41 09/14/24 23:37 Sodium Chloride Flush 0.9% 10 Ml Syringe IVP 10 ml PRN PRN Administration NEEDED PER PROVIDER ORDERS Sodium Chloride 10 ml 09/14/24 01:00 09/15/24 08:08 Sodium Chloride Flush 0.9% 10 Ml Syringe IVP 10 ml 0100,0900,1700 MIMA Administration Objective Vital Signs/Intake & Output Reviewed Vital Signs: Yes Vital Signs: Vital Signs x48h Temp Pulse Pulse Resp BP Pulse Ox O2 Flow Rate 09/15/24 12:47 2 09/15/24 12:00 37.0 C 71 26 H 95/68 97 2 09/15/24 11:00 37.1 C 70 30 H 110/77 97 2 09/15/24 10:56 2 09/15/24 10:22 2 09/15/24 10:00 36.8 C 65 28 H 136/88 H 98 2 09/15/24 09:00 69 C H 69 27 H 110/71 96 09/15/24 08:00 78 09/15/24 08:00 36.5 C 80 26 H 119/73 95 09/15/24 07:00 36.5 C 71 23 113/70 94 09/15/24 06:00 36.6 C 91 23 129/76 96 Intake & Output: Intake & Output 09/12/24 09/13/24 09/14/24 09/15/24 23:59 23:59 23:59 23:59 Intake Total 7841 / 7841 1574 / 1574 1304 / 1304 Output Total 850 / 850 2650 / 2650 3680 / 3680 Balance 6991 / 6991 -1076 / -1076 -2376 / -2376 Weight (kg) 120.5 kg Objective General Appearance: positive Alert, Mild distress (accelerated respiratory rate and effort) and Anxious (worried about being able to sleep tonight) Eyes Bilateral: positive Normal inspection ENT: positive ENT inspection nml, Pharynx nml and No signs of dehydration Neck: positive Nml inspection, No JVD and Trachea midline Respiratory: positive Chest non-tender, No respiratory distress and Other (lungs are clear with greatly reduced breath sounds in bilateral lower lobes) Cardiovascular: positive Irregularly irregular Peripheral Pulses: 1+: Dorsalis pedis (R) (very hard to find and isolate) and 1+: Dorsalis pedis (L) and 2+: Radial (R) and 2+: Radial (L) Abdomen: positive Guarding, Splenomegaly and Other (belly breathing with bilateral upper quadrant flexion during inspiration. ) Back: positive Nml inspection Skin: positive Color nml, Warm, Dry and Skin rash (fungal infection on crotch ) Extremities: positive Non-tender, Full ROM, Nml appearance and Other (PVD associated ecchymosis on bilateral medial calf) Neurologic/Psychiatric: positive Oriented x3, Motor nml and Sensation nml Lab Results 09/15/24 04:24 09/15/24 14:55 Other Labs: Lab Results x24hrs 09/15/24 09/15/24 09/15/24 Range/Units 09:32 07:05 04:24 WBC 20.7 H (4.8-10.8) x10^3/uL RBC 4.69 L (4.70-6.10) 10^6/uL Hgb 13.9 L (14.0-18.0) g/dL Hct 42.0 (42.0-52.0) % MCV 89.6 (80.0-94.0) fL MCH 29.6 (27.0-31.0) pg MCHC 33.1 (32.0-36.0) g/dL RDW 15.7 H (12.0-15.0) % Plt Count 123 L (130-450) 10^3/uL MPV 10.4 (7.4-11.4) fL Neut # (Auto) Not Reportable (1.5-6.6) 10^3/uL Lymph # (Auto) Not Reportable (1.5-3.5) 10^3/uL [place] # (Auto) Not Reportable (0.0-1.0) 10^3/uL Eos # (Auto) Not Reportable (0.0-0.7) 10^3/uL Baso # (Auto) Not Reportable (0.0-0.1) 10^3/uL Absolute Nucleated RBC Not Reportable x10^3/uL Total Counted 100 Band Neuts % (Manual) 5 (0 - 10) % Abnorm Lymph % (Manual) 0 % Nucleated RBC % Not Reportable /100WBC Neutrophils # (Manual) 19.3 H (1.5-6.6) 10^3/uL Lymphocytes # (Manual) 0.4 L (1.5-3.5) 10^3/uL Monocytes # (Manual) 1.0 (0.0-1.0) 10^3/uL Eosinophils # (Manual) 0.0 (0-0.7) 10^3/uL Basophils # (Manual) 0.0 (0-0.1) 10^3/uL Differential Comment MANUAL DIFFERENTIAL WBC Morphology NORMAL APPEARANCE (NORMAL) Platelet Estimate DECREASED (<130,000) (NORMAL) RBC Morph Micro Appear NORMAL APPEARANCE (NORMAL) Bld Gas Analysis Time Sample Site ABG pH (7.35-7.45) ABG pCO2 (34-45) mmHg ABG pO2 (83-108) mmHg ABG HCO3 (22.0-26.0) mmol/L ABG Total CO2 (21.0-29.0) mmol/L ABG O2 Saturation (95-98) % ABG Base Excess (-2.0-3.0) mmol/L Shayne Test VBG pH 7.431 H (7.31-7.41) Ionized Calcium 1.12 (1.09-1.30) mmol/L Respiration Rate b/min O2 Delivery Device FiO2 EPAP cmH2O IPAP cmH2O Sodium 138 (135-145) mmol/L Potassium 2.9 L (3.5-4.5) mmol/L Chloride 100 L (101-111) mmol/L Carbon Dioxide 29 (21-32) mmol/L Anion Gap 9.0 (6-13) BUN 23 H (6-20) mg/dL Creatinine 0.9 (0.6-1.3) mg/dL Estimated GFR (MDRD) 82 L (>89) Glucose 130 H (74-104) mg/dL Lactic Acid (0.5-2.2) mmol/L Calcium 8.2 L (8.5-10.3) mg/dL Phosphorus 2.2 L (2.5-5.0) mg/dL Magnesium 1.5 L (1.7-2.3) mg/dL Troponin I High Sens 264.8 H* 412.4 H* (2.3-19.7) ng/L B-Natriuretic Peptide 692 H (5-100) pg/mL Dose Cancelled Last Dose Date 09/15/24 Cancelled Last Dose Time 0543 Cancelled Vancomycin Peak 31.8 (20.0-40.0) ug/mL Vancomycin Trough Cancelled 09/14/24 09/14/24 09/14/24 Range/Units 23:05 21:30 20:15 WBC 18.6 H (4.8-10.8) x10^3/uL RBC 4.68 L (4.70-6.10) 10^6/uL Hgb 14.0 (14.0-18.0) g/dL Hct 42.2 (42.0-52.0) % MCV 90.2 (80.0-94.0) fL MCH 29.9 (27.0-31.0) pg MCHC 33.2 (32.0-36.0) g/dL RDW 15.8 H (12.0-15.0) % Plt Count 105 L (130-450) 10^3/uL MPV 10.5 (7.4-11.4) fL Neut # (Auto) 17.1 H (1.5-6.6) 10^3/uL Lymph # (Auto) 0.4 L (1.5-3.5) 10^3/uL [place] # (Auto) 0.6 (0.0-1.0) 10^3/uL Eos # (Auto) 0.1 (0.0-0.7) 10^3/uL Baso # (Auto) 0.0 (0.0-0.1) 10^3/uL Absolute Nucleated RBC 0.00 x10^3/uL Total Counted Band Neuts % (Manual) (0 - 10) % Abnorm Lymph % (Manual) % Nucleated RBC % 0.0 /100WBC Neutrophils # (Manual) (1.5-6.6) 10^3/uL Lymphocytes # (Manual) (1.5-3.5) 10^3/uL Monocytes # (Manual) (0.0-1.0) 10^3/uL Eosinophils # (Manual) (0-0.7) 10^3/uL Basophils # (Manual) (0-0.1) 10^3/uL Differential Comment WBC Morphology (NORMAL) Platelet Estimate (NORMAL) RBC Morph Micro Appear (NORMAL) Bld Gas Analysis Time 214 Sample Site LEFT RADIAL ABG pH 7.46 H (7.35-7.45) ABG pCO2 33 L (34-45) mmHg ABG pO2 165 H (83-108) mmHg ABG HCO3 23.9 (22.0-26.0) mmol/L ABG Total CO2 24.9 (21.0-29.0) mmol/L ABG O2 Saturation 99 H (95-98) % ABG Base Excess -0.1 (-2.0-3.0) mmol/L Shayne Test POSITIVE VBG pH (7.31-7.41) Ionized Calcium (1.09-1.30) mmol/L Respiration Rate 14 b/min O2 Delivery Device BiPAP FiO2 50.00 EPAP 5 cmH2O IPAP 10 cmH2O Sodium 136 (135-145) mmol/L Potassium 3.3 L (3.5-4.5) mmol/L Chloride 102 (101-111) mmol/L Carbon Dioxide 26 (21-32) mmol/L Anion Gap 8.0 (6-13) BUN 24 H (6-20) mg/dL Creatinine 0.9 (0.6-1.3) mg/dL Estimated GFR (MDRD) 82 L (>89) Glucose 136 H (74-104) mg/dL Lactic Acid 2.0 (0.5-2.2) mmol/L Calcium 8.0 L (8.5-10.3) mg/dL Phosphorus (2.5-5.0) mg/dL Magnesium (1.7-2.3) mg/dL Troponin I High Sens 523.8 H* 139.3 H* (2.3-19.7) ng/L B-Natriuretic Peptide 632 H (5-100) pg/mL Dose Last Dose Date Last Dose Time Vancomycin Peak (20.0-40.0) ug/mL Vancomycin Trough Diagnostic Imaging Diagnostic Imaging Comments: chest xr shows increased pulmonary congestion. Other Results/Comments Other Results/Comments: EKG is unchanged. ABX Reporting Has patient been on IV antibiotics over the past 48 hours?: Yes Sepsis Event Note (H) Evaluation Current Stage of Sepsis: Sepsis Possible source of Sepsis: positive Unknown Sepsis Associated Organ Dysfunction: bacterima, hypotension Sepsis Criteria Sepsis Criteria: Recorded Heart Rate greater than 90 bpm, Recorded Respiratory Rate greater than 20, Respiratory: Increasing oxygen requirements and WBC count greater than 12,000 or less than 4000 Assessment/Plan Problem List (1) Flash pulmonary edema: Impression: Diuresed 2.5 L via Lasix on 09/14 due to fluid overload, abdominal edema, respiratory distress with associated tachypnea, decreased breath sounds in lower [place], and cardiac wheeze CPAP required overnight 09/14 requiring morphine and ativan. CXR 09/14 21:30 showed increasing pulmonary congestion (2) Sepsis: Impression: Sepsis syndrome. Since presentation to the emergency department patient has had a blood pressure as low as 70s over 40s. This was sustained for a period of time. Elevated lactic acid of 2.3 on 09/13/2024 correcting to 2.0 on 09/14. Febrile on 09/13 and 09/14, corrected by 09/15 Selected Entries 09/13/24 07:00 09/14/24 22:00 09/15/24 16:00 Temperature 38.6 C H 38.9 C H 37.3 C Hypotension requiring levophed on 09/14 Respiratory rates 25-35 between 09/14-09/15 states that the patient presented with hand tremors which she recognizes as a sign that he has had an infection in the past. Qualifiers: Sepsis acute organ dysfunction status: unspecified Sepsis type: sepsis due to unspecified organism Qualified Code(s): A41.9 - Sepsis, unspecified organism (3) Gram-positive cocci bacteremia: Impression: We are treating with cefepime. possibly due to secondary to infection in groin which does not appear to be clinically worsening. Diflucan was added (4) Hypotension: Impression: Due to acute sepsis. Hypotension has resolved and he weaned off Levophed today Qualifiers: Hypotension type: unspecified hypotension type Qualified Code(s): I95.9 - Hypotension, unspecified (5) Penis symptom or sign: Impression: Chronic tinea cruris, possible cause of cellulitis (6) Atrial fibrillation with rapid ventricular response: Impression: Longstanding history of atrial fibrillation. Initial rate control with Metoprolol with minimal effects. Effective rate control with Diltizem. Po Eliquis while inpatient. Home Rx is PO Dabigatran (7) Anticoagulated: Impression: On Eliquis for atrial fibrillation. Takes Dabigatran at home for A-fib and Hx of PVD (peripheral vascular disease) with critical stenosis in the right lower extremity. There are no wounds
[2024-09-15] MEDS: VANCOMYCIN INJ 1 GM in SODIUM CHLORIDE 0.9% 250 ML IV SCH (17:12)
[2024-09-15] MEDS: ACETAMINOPHEN 325 MG TABLET PO PRN (20:38)
[2024-09-15 22:55] LABS: MAGNESIUM 1.6 mg/dL (1.7-2.3); POTASSIUM 3.6 mmol/L (3.5-4.5)
[2024-09-15 23:00] LABS: PHOSPHORUS 2.5 mg/dL (2.5-5.0)
[2024-09-16] MEDS: NEUTRA-PHOS 250 MG TABLET PO SCH ×2 (00:12→06:42)
[2024-09-16] MEDS: MAGNESIUM OXIDE 400 MG TABLET PO ONE ×2 (00:12→06:42)
[2024-09-16 04:59] LABS: BASOPHILS % (AUTO) 0.2 %; EOSINOPHILS % (AUTO) 0.2 %; HCT - HEMATOCRIT 36.6 % (42.0-52.0); HGB - HEMOGLOBIN 12.1 g/dL (14.0-18.0); LYMPHOCYTES # (AUTO) 0.7 10^3/uL (1.5-3.5); MEAN CORPUSCULAR HEMOGLOBIN 29.7 pg (27.0-31.0); MEAN CORPUSCULAR HGB CONC 33.1 g/dL (32.0-36.0); MEAN CORPUSCULAR VOLUME 89.7 fL (80.0-94.0); MEAN PLATELET VOLUME 10.2 fL (7.4-11.4); MONOCYTES # (AUTO) 0.5 10^3/uL (0.0-1.0); MONOCYTES % (AUTO) 6.2 %; NEUTROPHILS # (AUTO) 6.8 10^3/uL (1.5-6.6); NEUTROPHILS % (AUTO) 83.9 %; PLT - PLATELET COUNT 97 10^3/uL (130-450); RED BLOOD COUNT 4.08 10^6/uL (4.70-6.10); RED CELL DISTRIBUTION WIDTH 15.5 % (12.0-15.0); WHITE BLOOD COUNT 8.1 x10^3/uL (4.8-10.8)
[2024-09-16 05:15] LABS: CALCIUM 8.2 mg/dL (8.5-10.3); CREATININE 0.7 mg/dL (0.6-1.3); MAGNESIUM 1.7 mg/dL (1.7-2.3); PHOSPHORUS 2.5 mg/dL (2.5-5.0); POTASSIUM 3.3 mmol/L (3.5-4.5)
[2024-09-16 05:24] LABS: CALCIUM, IONIZED 1.15 mmol/L (1.09-1.30); VBG PH 7.483 (7.31-7.41)
[2024-09-16 10:27] LABS: MAGNESIUM 1.6 mg/dL (1.7-2.3); PHOSPHORUS 2.7 mg/dL (2.5-5.0); POTASSIUM 3.2 mmol/L (3.5-4.5)
[2024-09-16] MEDS: MAGNESIUM SULFATE 2 GRAM 2 GM/50 ML BAG IV ONE (10:59)
[2024-09-16] MEDS: POTASSIUM CHLOR 10 MEQ/100 ML 10 MEQ/100 ML BAG IV SCH ×2 (10:59→18:06)
[2024-09-16] MEDS: METOPROLOL SUCCINATE 50 MG TABLET PO SCH (13:42)
--- NOTE | 2024-09-16 13:55 | PROVIDER PROGRESS NOTE ---
Subjective Prog Note Date Prog Note Date: 09/16/24 Subjective Pt reports feeling: Improved Current Medications Current Medications Current Medications: Current Medications Generic Name Dose Route Start Last Admin Trade Name Kiran PRN Reason Stop Dose Admin Acetaminophen 650 mg 09/13/24 21:41 09/15/24 20:38 Acetaminophen 325 Mg Tablet PO 650 mg Q4HR PRN Administration Pain 1 to 4, or Fever Apixaban 5 mg 09/13/24 23:00 09/16/24 08:13 Apixaban 5 Mg Tablet PO 5 mg BID MIMA Administration Aspirin 81 mg 09/13/24 21:41 09/16/24 08:13 Aspirin Ec 81 Mg Tablet PO 81 mg DAILY MIMA Administration Atorvastatin Calcium 20 mg 09/14/24 21:00 09/15/24 20:34 Atorvastatin 10 Mg Tablet PO 20 mg HS MIMA Administration Ceftriaxone Sodium 1 gm 09/17/24 09:00 Ceftriaxone 1 Gm Vial IVP DAILY MIMA Cholecalciferol 25 mcg 09/14/24 09:00 09/16/24 08:13 Cholecalciferol 25 Mcg Tablet PO 25 mcg DAILY MIMA Administration Clotrimazole 1 applic 09/14/24 09:00 09/16/24 08:13 Clotrimazole/Betamethasone 15 Gm Tube TOP 1 applic BID MIMA Administration Cyanocobalamin 1,000 mcg 09/14/24 09:00 09/16/24 08:13 Cyanocobalamin 500 Mcg Tablet PO 1,000 mcg DAILY MIMA Administration Vancomycin HCl 1 gm/ Sodium 250 mls @ 167 mls/hr 09/15/24 18:00 09/16/24 07:16 Chloride IV Infused Q12H MIMA Infusion Potassium Chloride 10 meq in 100 mls @ 100 mls/hr 09/16/24 11:00 09/16/24 13:06 Potassium Chloride IV 09/16/24 14:59 100 mls/hr Q1H MIMA Administration Protocol Metoprolol Succinate 50 mg 09/16/24 13:20 09/16/24 13:42 Metoprolol Succinate 50 Mg Tablet PO 50 mg DAILY MIMA Administration Morphine Sulfate 2 mg 09/14/24 21:20 Morphine 2 Mg/Ml Carpuject IVP Q2HR PRN Severe Pain (Level 7-10) Multi-Ingredient Mouthwash/Gargle 30 ml 09/15/24 10:18 Gi Cocktail 120 Ml Bottle PO Q4H PRN Abdominal Pain Ondansetron HCl 4 mg 09/13/24 21:41 Ondansetron Odt 4 Mg Tablet TL Q6HR PRN Nausea / Vomiting Oxycodone HCl 5 mg 09/13/24 21:41 Oxycodone 5 Mg Tablet PO Q4HR PRN Pain 8 to 10 Sodium Chloride 10 ml 09/13/24 21:41 09/16/24 04:44 Sodium Chloride Flush 0.9% 10 Ml Syringe IVP 10 ml PRN PRN Administration NEEDED PER PROVIDER ORDERS Sodium Chloride 10 ml 09/14/24 01:00 09/16/24 08:14 Sodium Chloride Flush 0.9% 10 Ml Syringe IVP 10 ml 0100,0900,1700 MIMA Administration Objective Vital Signs/Intake & Output Reviewed Vital Signs: Yes Vital Signs: Vital Signs x48h Temp Pulse Resp BP Pulse Ox O2 Flow Rate 09/16/24 13:00 105 H 20 134/85 H 97 1 09/16/24 12:00 37.4 C 107 H 21 127/90 91 L 2 09/16/24 11:00 93 22 137/87 H 97 2 09/16/24 10:00 95 22 130/76 97 2 09/16/24 09:04 2 09/16/24 09:00 90 28 H 118/81 96 2 09/16/24 08:00 37.0 C 105 H 18 130/92 H 98 2 09/16/24 07:00 36.9 C 84 24 123/87 96 2 09/16/24 06:00 2 09/16/24 06:00 36.9 C 88 21 142/81 H 96 2 Intake & Output: Intake & Output 09/13/24 09/14/24 09/15/24 09/16/24 23:59 23:59 23:59 23:59 Intake Total 7841 / 7841 1574 / 1574 2435 / 2435 1280 / 1280 Output Total 850 / 850 2650 / 2650 4630 / 4630 970 / 970 Balance 6991 / 6991 -1076 / -1076 -2195 / -2195 310 / 310 Weight (kg) 120.5 kg Objective General Appearance: positive No acute distress and Alert Eyes Bilateral: positive Normal inspection ENT: positive No signs of dehydration Neck: positive No JVD Respiratory: positive Chest non-tender and No respiratory distress Cardiovascular: positive Irregularly irregular Peripheral Pulses: 1+: Dorsalis pedis (R) and 1+: Dorsalis pedis (L) Abdomen: positive Non-tender Back: positive Nml inspection Skin: positive Color nml, Warm, Dry and Skin rash (Scrotal fungal infection, improving) Extremities: positive Non-tender, Full ROM, Nml appearance and Other (PVD associated ecchymosis on bilateral medial calf) Neurologic/Psychiatric: positive Oriented x3 Lab Results 09/16/24 04:43 09/16/24 10:09 Other Labs: Lab Results x24hrs 09/16/24 09/16/24 09/15/24 Range/Units 10:09 04:43 22:35 WBC 8.1 (4.8-10.8) x10^3/uL RBC 4.08 L (4.70-6.10) 10^6/uL Hgb 12.1 L (14.0-18.0) g/dL Hct 36.6 L (42.0-52.0) % MCV 89.7 (80.0-94.0) fL MCH 29.7 (27.0-31.0) pg MCHC 33.1 (32.0-36.0) g/dL RDW 15.5 H (12.0-15.0) % Plt Count 97 L (130-450) 10^3/uL MPV 10.2 (7.4-11.4) fL Neut # (Auto) 6.8 H (1.5-6.6) 10^3/uL Lymph # (Auto) 0.7 L (1.5-3.5) 10^3/uL [place] # (Auto) 0.5 (0.0-1.0) 10^3/uL Eos # (Auto) 0.0 (0.0-0.7) 10^3/uL Baso # (Auto) 0.0 (0.0-0.1) 10^3/uL Absolute Nucleated RBC 0.00 x10^3/uL Nucleated RBC % 0.0 /100WBC VBG pH 7.483 H (7.31-7.41) Ionized Calcium 1.15 (1.09-1.30) mmol/L Sodium 139 140 (135-145) mmol/L Potassium 3.2 L 3.3 L 3.6 (3.5-4.5) mmol/L Chloride 101 (101-111) mmol/L Carbon Dioxide 34 H (21-32) mmol/L Anion Gap 4.0 L (6-13) BUN 26 H (6-20) mg/dL Creatinine 0.7 (0.6-1.3) mg/dL Estimated GFR (MDRD) 110 (>89) Glucose 102 (74-104) mg/dL Calcium 8.2 L (8.5-10.3) mg/dL Phosphorus 2.7 2.5 2.5 (2.5-5.0) mg/dL Magnesium 1.6 L 1.7 1.6 L (1.7-2.3) mg/dL Last Dose Date Last Dose Time Vancomycin Trough ug/mL 09/15/24 Range/Units 14:55 WBC (4.8-10.8) x10^3/uL RBC (4.70-6.10) 10^6/uL Hgb (14.0-18.0) g/dL Hct (42.0-52.0) % MCV (80.0-94.0) fL MCH (27.0-31.0) pg MCHC (32.0-36.0) g/dL RDW (12.0-15.0) % Plt Count (130-450) 10^3/uL MPV (7.4-11.4) fL Neut # (Auto) (1.5-6.6) 10^3/uL Lymph # (Auto) (1.5-3.5) 10^3/uL [place] # (Auto) (0.0-1.0) 10^3/uL Eos # (Auto) (0.0-0.7) 10^3/uL Baso # (Auto) (0.0-0.1) 10^3/uL Absolute Nucleated RBC x10^3/uL Nucleated RBC % /100WBC VBG pH (7.31-7.41) Ionized Calcium (1.09-1.30) mmol/L Sodium (135-145) mmol/L Potassium 3.2 L (3.5-4.5) mmol/L Chloride (101-111) mmol/L Carbon Dioxide (21-32) mmol/L Anion Gap (6-13) BUN (6-20) mg/dL Creatinine (0.6-1.3) mg/dL Estimated GFR (MDRD) (>89) Glucose (74-104) mg/dL Calcium (8.5-10.3) mg/dL Phosphorus 2.0 L (2.5-5.0) mg/dL Magnesium 1.7 (1.7-2.3) mg/dL Last Dose Date 09/15/24 Last Dose Time 0543 Vancomycin Trough 19.3 ug/mL Diagnostic Imaging Diagnostic Imaging Comments: chest xr shows increased pulmonary congestion. Sepsis Event Note (H) Evaluation Current Stage of Sepsis: Sepsis Possible source of Sepsis: positive Unknown Sepsis Criteria Sepsis Criteria: Recorded Heart Rate greater than 90 bpm, Recorded Respiratory Rate greater than 20, Respiratory: Increasing oxygen requirements and WBC count greater than 12,000 or less than 4000 Assessment/Plan Problem List (1) Sepsis: Impression: Sepsis in ED, cultures resulted as strep porcinus. He had septic shock requiring Levophed. Levophed has been off for greater than 1 day. Now afebrile, vital signs stable. De-escalate antibiotics to Rocephin and vancomycin for now. I have reached out to [facility] for potential transfer as he has a strep bacteremia and will likely need DAMIAN to rule out endocarditis. He has been accepted by Dr. Verdin, and has been approved by his insurance for transfer. He is now on a waiting list, accepting facility has at 113% capacity Qualifiers: Sepsis acute organ dysfunction status: unspecified Sepsis type: sepsis due to unspecified organism Qualified Code(s): A41.9 - Sepsis, unspecified organism (2) Flash pulmonary edema: Impression: Resolved after aggressive diuresis started on 09/14/2024, discontinued 09/15/2024 CXR 09/14 21:30 showed increasing pulmonary congestion (3) Hypotension: Impression: Due to sepsis, resolved. Off levo greater than 1 day Qualifiers: Hypotension type: unspecified hypotension type Qualified Code(s): I95.9 - Hypotension, unspecified (4) Penis symptom or sign: Impression: Chronic tinea cruris, possible Source of infection (5) Atrial fibrillation with rapid ventricular response: Impression: Longstanding history of atrial fibrillation. Initial rate control with Metoprolol with minimal effects. Po Eliquis while inpatient. Home Rx is PO Dabigatran Weaned off of Cardizem drip on 09/15/2024. Restarting home dose metoprolol (6) Anticoagulated: Impression: On Eliquis for atrial fibrillation. Takes Dabigatran at home for A-fib and Hx of PVD (peripheral vascular disease) with critical stenosis in the right lower extremity. There are no wounds
[2024-09-16 17:21] LABS: MAGNESIUM 1.9 mg/dL (1.7-2.3); POTASSIUM 3.5 mmol/L (3.5-4.5)
[2024-09-17 05:19] LABS: BASOPHILS % (AUTO) 0.5 %; EOSINOPHILS # (AUTO) 0.1 10^3/uL (0.0-0.7); EOSINOPHILS % (AUTO) 1.4 %; HCT - HEMATOCRIT 36.7 % (42.0-52.0); HGB - HEMOGLOBIN 12.2 g/dL (14.0-18.0); LYMPHOCYTES # (AUTO) 1.1 10^3/uL (1.5-3.5); LYMPHOCYTES % (AUTO) 16.5 %; MEAN CORPUSCULAR HEMOGLOBIN 29.8 pg (27.0-31.0); MEAN CORPUSCULAR HGB CONC 33.2 g/dL (32.0-36.0); MEAN CORPUSCULAR VOLUME 89.5 fL (80.0-94.0); MEAN PLATELET VOLUME 10.1 fL (7.4-11.4); MONOCYTES # (AUTO) 0.6 10^3/uL (0.0-1.0); MONOCYTES % (AUTO) 9.7 %; NEUTROPHILS # (AUTO) 4.6 10^3/uL (1.5-6.6); NEUTROPHILS % (AUTO) 71.3 %; RED CELL DISTRIBUTION WIDTH 15.7 % (12.0-15.0); WHITE BLOOD COUNT 6.5 x10^3/uL (4.8-10.8)
[2024-09-17 05:22] LABS: CALCIUM, IONIZED 1.16 mmol/L (1.09-1.30); VBG PH 7.449 (7.31-7.41)
[2024-09-17 05:23] LABS: PLT - PLATELET COUNT 111 10^3/uL (130-450)
[2024-09-17 05:36] LABS: CALCIUM 8.5 mg/dL (8.5-10.3); CREATININE 0.6 mg/dL (0.6-1.3); MAGNESIUM 1.7 mg/dL (1.7-2.3); PHOSPHORUS 3.5 mg/dL (2.5-5.0); POTASSIUM 3.7 mmol/L (3.5-4.5)
[2024-09-17] MEDS: cefTRIAXone 2 GM VIAL IV SCH (08:13)
--- NOTE | 2024-09-17 11:15 | Discharge Summary ---
Discharge Summary Admit Date: 09/13/24 Discharge Date: 09/18/24 Discharging Provider: Deni Hall NP Primary Care Provider: Renay Chandler Code Status: Attempt Resuscitation Discharge [facility] Name: [facility] DIAGNOSES Admission Diagnoses: Sepsis Gram-positive bacteremia Hypotension Tinea cruris Atrial fibrillation with RVR Chronic anticoagulation Discharge Diagnoses with Status of Each Condition: Flash pulmonary edemaresolved Sepsisactive Gram-positive bacteremiaactive, cultures indicate strep porcinus Hypotensionresolved Tinea crurisimproving Atrial fibrillation with RVRRVR resolved, still in A-fib Chronic anticoagulationchronic HPI History of Present Illness: 74-year-old man with a history of peripheral vascular disease hypertension atrial fibrillation on Pradaxa sleep apnea presented to the emergency department almost 20 hours ago with fever and shaking chills. He has noted a rash in his groin which has been getting a little bit worse recently. Otherwise he has been doing well. He has chronic problems with dribbling of urine on his groin area secondary to issues with retracting his foreskin. Was treated in the emergency department for sepsis syndrome. He has had 4-4 blood culture bottles positive for gram-positive cocci with PCR positive for Streptococcus species. Sensitivities are pending. He has been treated appropriately in the emergency department with cefepime and vancomycin. He was initially given Flagyl but this was discontinued. is his surrogate decision maker. Code status/POLST not discussed HOSPITAL COURSE Hospital Course: Patient was admitted to the hospital and placed on broad-spectrum antibiotics. He was noted to have tinea cruris, and the associated cellulitis was thought to be his source of infection. Cultures grew strep porcinus. Echocardiogram was performed, was not able to rule out endocarditis. He went into flash pulmonary edema and A-fib RVR on the night of the . This resolved after Lasix drip. His heart rate is now controlled with Toprol 50 mg p.o. daily. He was on Levophed on the night of the , this has been weaned off and has been off for well over a day. Today, he is resting comfortably on room air. He is being transferred to [place] to undergo [facility] Allergies Allergy/AdvReac Type Severity Reaction Status Date / Time Sulfa (Sulfonamide Allergy Unknown Verified 09/13/24 02:52 Antibiotics) MEDICATIONS Ambulatory Orders Medication Instructions Recorded Confirmed dabigatran etexilate 150 mg 150 mg PO BID 05/18/19 09/13/24 capsule (Pradaxa) simvastatin 40 mg tablet 40 mg PO DAILY PM 05/18/19 09/13/24 ferrous gluconate 240 mg (27 mg 65 mg PO DAILY 06/17/19 09/13/24 iron) tablet cholecalciferol (vitamin D3) 25 25 mcg PO DAILY 02/06/21 09/13/24 mcg (1,000 unit) capsule cyanocobalamin (vitamin B-12) 1,000 mcg PO DAILY 02/06/21 09/13/24 1,000 mcg capsule aspirin 81 mg tablet,delayed 81 mg PO QDAY 06/01/24 09/13/24 release metoprolol succinate 50 mg 50 mg PO BID 09/13/24 09/13/24 tablet,extended release 24 hr chlorthalidone 50 mg tablet 50 mg PO ONCE 09/14/24 09/14/24 lisinopril 5 mg tablet 5 mg PO ONCE 09/14/24 09/14/24 multivitamin (Daily Multi-Vitamin 1 tab PO DAILY 09/14/24 09/14/24 tablet) PHYSICAL EXAM AT DISCHARGE General Appearance: positive No acute distress and Alert Eyes Bilateral: positive Normal inspection and PERRL ENT: positive ENT inspection nml and No signs of dehydration Neck: positive No JVD Respiratory: positive Chest non-tender and No respiratory distress Cardiovascular: positive Irregularly irregular Peripheral Pulses: positive 2+ Abdomen: positive Non-tender Rectal: positive Non-tender Back: positive Nml inspection Skin: positive Color nml Extremities: positive Non-tender Neurologic/Psychiatric: positive Oriented x3 LABS 09/17/24 05:07 09/17/24 05:07 SEPSIS Current Stage of Sepsis: Sepsis Possible source of Sepsis: Unknown Sepsis Criteria: Recorded Heart Rate greater than 90 bpm, Recorded Respiratory Rate greater than 20, Respiratory: Increasing oxygen requirements and WBC count greater than 12,000 or less than 4000 TIME SPENT Time Spent in Discharge (Minutes): 35 Discharge Plan Discharge Patient Disposition: 02 Transfer Acute Care Hosp Condition: Serious Prescriptions: No Action simvastatin 40 MG tablet 40 mg PO DAILY PM dabigatran etexilate [Pradaxa] 150 MG capsule 150 mg PO BID ferrous gluconate 240 MG tablet 65 mg PO DAILY cholecalciferol (vitamin D3) 25 MCG capsule 25 mcg PO DAILY cyanocobalamin (vitamin B-12) 1,000 MCG capsule 1,000 mcg PO DAILY metoprolol succinate 50 mg tablet extended release 24 hr 50 mg PO BID chlorthalidone 50 mg tablet 50 mg PO ONCE lisinopril 5 mg tablet 5 mg PO ONCE multivitamin [Daily Multi-Vitamin] Tablet 1 tab PO DAILY aspirin 81 mg tablet,delayed release (DR/EC) 81 mg PO QDAY Print Language: Chinese Stand Alone Forms: PCP List
--- NOTE | 2024-09-17 18:53 | PROVIDER PROGRESS NOTE ---
Subjective Prog Note Date Prog Note Date: 09/17/24 Subjective Pt reports feeling: Improved Current Medications Current Medications Current Medications: Current Medications Generic Name Dose Route Start Last Admin Trade Name Kiran PRN Reason Stop Dose Admin Acetaminophen 650 mg 09/13/24 21:41 09/15/24 20:38 Acetaminophen 325 Mg Tablet PO 650 mg Q4HR PRN Administration Pain 1 to 4, or Fever Apixaban 5 mg 09/13/24 23:00 09/17/24 08:12 Apixaban 5 Mg Tablet PO 5 mg BID MIMA Administration Aspirin 81 mg 09/13/24 21:41 09/17/24 08:12 Aspirin Ec 81 Mg Tablet PO 81 mg DAILY MIMA Administration Atorvastatin Calcium 20 mg 09/14/24 21:00 09/16/24 20:21 Atorvastatin 10 Mg Tablet PO 20 mg HS IMMA Administration Ceftriaxone Sodium 2 gm 09/17/24 09:00 09/17/24 08:13 Ceftriaxone 2 Gm Vial IV 2 gm DAILY MIMA Administration Cholecalciferol 25 mcg 09/14/24 09:00 09/17/24 08:12 Cholecalciferol 25 Mcg Tablet PO 25 mcg DAILY MIMA Administration Clotrimazole 1 applic 09/14/24 09:00 09/17/24 08:12 Clotrimazole/Betamethasone 15 Gm Tube TOP 1 applic BID MIMA Administration Cyanocobalamin 1,000 mcg 09/14/24 09:00 09/17/24 08:12 Cyanocobalamin 500 Mcg Tablet PO 1,000 mcg DAILY MIMA Administration Vancomycin HCl 1 gm/ Sodium 250 mls @ 167 mls/hr 09/15/24 18:00 09/17/24 17:56 Chloride IV 167 mls/hr Q12H MIMA Administration Metoprolol Succinate 50 mg 09/16/24 13:20 09/17/24 08:12 Metoprolol Succinate 50 Mg Tablet PO 50 mg DAILY MIMA Administration Multi-Ingredient Mouthwash/Gargle 30 ml 09/15/24 10:18 Gi Cocktail 120 Ml Bottle PO Q4H PRN Abdominal Pain Ondansetron HCl 4 mg 09/13/24 21:41 Ondansetron Odt 4 Mg Tablet TL Q6HR PRN Nausea / Vomiting Oxycodone HCl 5 mg 09/13/24 21:41 Oxycodone 5 Mg Tablet PO Q4HR PRN Pain 8 to 10 Sodium Chloride 10 ml 09/13/24 21:41 09/16/24 04:44 Sodium Chloride Flush 0.9% 10 Ml Syringe IVP 10 ml PRN PRN Administration NEEDED PER PROVIDER ORDERS Sodium Chloride 10 ml 09/14/24 01:00 09/17/24 17:56 Sodium Chloride Flush 0.9% 10 Ml Syringe IVP 10 ml 0100,0900,1700 MIMA Administration Objective Vital Signs/Intake & Output Reviewed Vital Signs: Yes Vital Signs: Vital Signs x48h Temp Pulse Resp BP Pulse Ox 09/17/24 17:00 36.6 C 84 24 135/88 H 91 L 09/17/24 12:04 36.9 C 95 23 137/92 H 98 Intake & Output: Intake & Output 09/14/24 09/15/24 09/16/24 09/17/24 23:59 23:59 23:59 23:59 Intake Total 1574 / 1574 2435 / 2435 2270 / 2270 1070 / 1070 Output Total 2650 / 2650 4630 / 4630 1245 / 1245 1400 / 1400 Balance -1076 / -1076 -2195 / -2195 1025 / 1025 -330 / -330 Objective General Appearance: positive No acute distress and Alert Eyes Bilateral: positive Normal inspection ENT: positive No signs of dehydration Neck: positive No JVD Respiratory: positive Chest non-tender and No respiratory distress Cardiovascular: positive Irregularly irregular Peripheral Pulses: 1+: Dorsalis pedis (R) and 1+: Dorsalis pedis (L) Abdomen: positive Non-tender Back: positive Nml inspection Skin: positive Color nml, Warm, Dry and Skin rash (Scrotal fungal infection, improving) Extremities: positive Non-tender, Full ROM, Nml appearance and Other (PVD associated ecchymosis on bilateral medial calf) Neurologic/Psychiatric: positive Oriented x3 Lab Results 09/17/24 05:07 09/17/24 05:07 Other Labs: Lab Results x24hrs 09/17/24 Range/Units 05:07 WBC 6.5 (4.8-10.8) x10^3/uL RBC 4.10 L (4.70-6.10) 10^6/uL Hgb 12.2 L (14.0-18.0) g/dL Hct 36.7 L (42.0-52.0) % MCV 89.5 (80.0-94.0) fL MCH 29.8 (27.0-31.0) pg MCHC 33.2 (32.0-36.0) g/dL RDW 15.7 H (12.0-15.0) % Plt Count 111 L (130-450) 10^3/uL MPV 10.1 (7.4-11.4) fL Neut # (Auto) 4.6 (1.5-6.6) 10^3/uL Lymph # (Auto) 1.1 L (1.5-3.5) 10^3/uL Shannon # (Auto) 0.6 (0.0-1.0) 10^3/uL Eos # (Auto) 0.1 (0.0-0.7) 10^3/uL Baso # (Auto) 0.0 (0.0-0.1) 10^3/uL Absolute Nucleated RBC 0.00 x10^3/uL Nucleated RBC % 0.0 /100WBC VBG pH 7.449 H (7.31-7.41) Ionized Calcium 1.16 (1.09-1.30) mmol/L Sodium 137 (135-145) mmol/L Potassium 3.7 (3.5-4.5) mmol/L Chloride 100 L (101-111) mmol/L Carbon Dioxide 33 H (21-32) mmol/L Anion Gap 4.0 L (6-13) BUN 25 H (6-20) mg/dL Creatinine 0.6 (0.6-1.3) mg/dL Estimated GFR (MDRD) 131 (>89) Glucose 92 (74-104) mg/dL Calcium 8.5 (8.5-10.3) mg/dL Phosphorus 3.5 (2.5-5.0) mg/dL Magnesium 1.7 (1.7-2.3) mg/dL Diagnostic Imaging Diagnostic Imaging Comments: chest xr shows increased pulmonary congestion. Sepsis Event Note (H) Evaluation Current Stage of Sepsis: Sepsis Possible source of Sepsis: positive Unknown Sepsis Criteria Sepsis Criteria: Recorded Heart Rate greater than 90 bpm, Recorded Respiratory Rate greater than 20, Respiratory: Increasing oxygen requirements and WBC count greater than 12,000 or less than 4000 Assessment/Plan Problem List (1) Sepsis: Impression: Sepsis in ED, cultures resulted as strep porcinus. He had septic shock requiring Levophed. Levophed has been off for greater than 1 day. Now afebrile, vital signs stable. De-escalate antibiotics to Rocephin and vancomycin for now. I have reached out to [facility] for potential transfer as he has a strep bacteremia and will likely need [facility] to rule out endocarditis. He has been accepted by Dr. Verdin, and has been approved by his insurance for transfer. He is now on a waiting list, accepting facility has at 113% capacity 09/17/2024: Still awaiting transfer to outside facility. Vital signs remained stable off of pressors. Continue Rocephin/Vanco. Leukocytosis has resolved. Echocardiogram showed a possible laminar apical thrombus. Unsure if this is septic or because of his atrial fibrillation. He is already on Eliquis. Regardless, next step is for a [facility] Qualifiers: Sepsis acute organ dysfunction status: unspecified Sepsis type: sepsis due to unspecified organism Qualified Code(s): A41.9 - Sepsis, unspecified organism (2) Flash pulmonary edema: Impression: Resolved after aggressive diuresis started on 09/14/2024, discontinued 09/15/2024 CXR 09/14 21:30 showed increasing pulmonary congestion (3) Hypotension: Impression: Due to sepsis, resolved. Off levo greater than 1 day Qualifiers: Hypotension type: unspecified hypotension type Qualified Code(s): I95.9 - Hypotension, unspecified (4) Penis symptom or sign: Impression: Chronic tinea cruris, possible Source of infection (5) Atrial fibrillation with rapid ventricular response: Impression: Longstanding history of atrial fibrillation. Initial rate control with Metoprolol with minimal effects. Po Eliquis while inpatient. Home Rx is PO Dabigatran Weaned off of Cardizem drip on 09/15/2024. Restarting home dose metoprolol (6) Anticoagulated: Impression: On Eliquis for atrial fibrillation. Takes Dabigatran at home for A-fib and Hx of PVD (peripheral vascular disease) with critical stenosis in the right lower extremity. There are no wounds
[2024-09-17 20:43] VITALS: O2SAT 96
[2024-09-18 00:10] VITALS: BP 115/86; TEMP 98
== END 2024-09-18 01:50 | disposition short-term general hospital (02) | DRG 871 ==
LOC: ED 02:29 → ICU 21:04
PROVIDERS: ADMIT Physician Assistant Medical; ATTEND Physician Assistant Medical
DX: L08.9 Local infection of the skin and subcutaneous tissue, unspecified; J81.0 Acute pulmonary edema; I44.7 Left bundle-branch block, unspecified; I10 Essential (primary) hypertension; Z79.01 Long term (current) use of anticoagulants; Z20.818 Contact with and (suspected) exposure to other bacterial communicable diseases; Z20.828 Contact with and (suspected) exposure to other viral communicable diseases; R05.9 Cough, unspecified; A40.9 Streptococcal sepsis, unspecified; G47.30 Sleep apnea, unspecified; Z20.822 Contact with and (suspected) exposure to COVID-19; G62.9 Polyneuropathy, unspecified; Z87.891 Personal history of nicotine dependence; I95.9 Hypotension, unspecified; I48.92 Unspecified atrial flutter; A41.9 Sepsis, unspecified organism; I27.20 Pulmonary hypertension, unspecified; Z79.82 Long term (current) use of aspirin; B35.6 Tinea cruris; Z79.899 Other long term (current) drug therapy; I48.91 Unspecified atrial fibrillation; I08.0 Rheumatic disorders of both mitral and aortic valves; I73.9 Peripheral vascular disease, unspecified